=== PATIENT | female | born 1975 | race Caucasian/White ===

== ENCOUNTER 2018-02-15 10:28 | Inpatient (IN) | payer OTHER, MEDICAID, SELFPAY ==
[2018-02-07 10:15] VITALS: BMI 25.2
[2018-02-15] VITALS (12 sets, daily range): BP systolic 96–145; BP diastolic 49–95; PULSE 1–98; RESP 13–18; TEMP 35.8–37; O2SAT 96–99; BMI 25.2
--- NOTE | 2018-02-15 | PATH_ITS ---
[facility] Accession Number: [id number] . 01 Material submitted: . END OF OSTOMY AND ANASTOMOSIS RINGS . 02 Diagnosis: End of an Ostomy and Anastomotic Rings: Colon and colocutaneous tissue with no significant diagnostic abnormality. No evidence of dysplasia or malignancy. [facility]/02/20/2018 . 02 Electronically signed: . Minda Chou MD, Pathologist NPI- [id number] . 01 Gross description: . Received in formalin, labeled 1-end of ostomy + anastomosis rings, is a superficial portion of an ostomy (3.0 x 3.0 x 1.7 cm) with a pale bright white rim of skin (up to 0.5 cm thick). The resection margin is received sutured. No nodules, masses, or lesions are identified. Also submitted are two unoriented pieces of colon (piece #1-1.8 x 1.8 x 0.7 cm; piece #2-3.5 x 1.5 x 0.7 cm). The resection margins are inked black. Section code: (A1, A2) ostomy, two perpendicular slices; (A3-A4) colon piece #1, bisected, entirely submitted; (A5-A6) colon piece #2, serially sectioned, entirely submitted. ([id number]) /FRR . 02 Pathologist provided ICD-10: Z43.3 . 02 CPT . 505552 Performed at: 01 [facility] [address] [id number] MD Dilan Rodriguez MD Phone: [phone] Performed at: 02 [facility] [address] [place] [id number] MD Elfego Shirley MD Phone: [phone]
[2018-02-15] MEDS: NEOMYCIN 500 MG TABLET 1000 MG PO (11:15)
[2018-02-15] MEDS: ERYTHROMYCIN BASE 500 MG TABLET PO (11:15)
[2018-02-15] MEDS: LACTATED RINGERS 1,000 ML 100 ML IV ×2 (11:45→17:34)
[2018-02-15] MEDS: metroNIDAZOLE 500 MG/100 ML PIGGYBACK 100 MG IV ×2 (11:45→18:59)
[2018-02-15] MEDS: ONDANSETRON 4 MG/2 ML INJ IV ×2 (11:49→16:37)
--- NOTE | 2018-02-15 12:11 | PM.PREOP ---
Pre-operative Note Interval Note Pre-op Check: History & Physical Reviewed by Physician and Exam Performed H&P completed within 30 days and has changed as indicated here:: none
[2018-02-15] MEDS: MIDAZOLAM 2 MG/2 ML VIAL IV (12:18)
[2018-02-15] MEDS: CEFOTETAN 2 GM/50 ML PIGGYBACK IV ×2 (12:25→19:56)
[2018-02-15] MEDS: LACTATED RINGERS 1,000 ML 42 ML IV ×2 (13:57→14:54)
[2018-02-15] MEDS: SODIUM CHLORIDE 0.9% IV (16:38)
[2018-02-15] MEDS: FENTANYL IV (16:38)
[2018-02-15] MEDS: BUPIVACAINE 0.5% IV (16:38)
[2018-02-15] MEDS: PROMETHAZINE 12.5 MG in SODIUM CHLORIDE 0.9% 50 ML 202 ML IV (16:49)
--- NOTE | 2018-02-15 16:57 | P.OP_ITS ---
Operative Date/Time/Diagnoses - Date of procedure: 02/15/18 Time of procedure: 16:15 Pre-op diagnosis: Colostomy post anastomotic perforation Post-op diagnosis: same Procedure & Clinicians Procedure: Exploration of the abdomen with colostomy closure resection of a portion of colon and primary colo colo anastomosis Same procedure as scheduled: Yes Indications: Patient with temporary ostomy for closure Surgeon: Kenneth Muniz Hat Finishing Materials Preparer: Sakshi Berger Anesthesia Type: General Operative Notes Findings: Anastomotic area tested no evidence of leak. Closure Type: primary Specimen(s): other (Portion of colon) Applied: catheter (Valencia) Estimated Blood Loss (mL): 50 Blood products transfused: none Procedure in detail: The patient is placed supine on the operating table underwent general endotracheal anesthesia. Her ostomy was closed with a running 0 Polysorb suture. She was put in low lithotomy a Valencia was placed and she was prepped and draped in the usual fashion. Scar from her prior operation was excised and incision carried in the peritoneal cavity. There was a small amount of adhesions of omentum to the anterior abdominal wall. Otherwise the abdomen was fairly free of adhesions. I rapidly was able to identify the distal segment and the 2 Prolene stitches that had been placed that were on the corners. The the end was free that up been was healthy in appearance. An incision was made around the ostomy and the ostomy was from the surrounding skin fat and muscle. It was delivered into the peritoneal cavity. The length was assessed and it was felt it would reach the pelvis easily. The end of the proximal colon segment was cleaned and the distal portion removed and submitted. Sizers were applied and it easily accommodated a 28 Lithuanian Sizer. A 28 EEA anvil was placed in the proximal portion of the colon and a pursestring of 2 0 Prolene placed around it and tied. EEA was inserted through the rectum and the spike extended through the colon wall. It was brought out distal to the in the anterior wall of the colon. The EEA was closed and fired and the donuts appeared to be proctoscope inserted and air insufflated into the colon. A bowel clamp at the placed proximal. The anastomosis was under water and there was no evidence of any leak whatsoever. The proctoscope was removed. The pelvis was irrigated and suctioned free of fluid. The omentum was laid over the intestine and the fascia closed in the midline. Because the patient had an incisional hernia at the umbilicus I chose to close this area with interrupted figure of 8 1. Prolene sutures. Distal to this I closed the fascia with a running 1. Prolene suture and occasional interrupted 0 Polysorb sutures. The subcu was irrigated. Patient had a birthmark that she desired to have removed and it was excised. The wounds were all closed in several layers with 3 0 Polysorb in the subcu for Polysorb subcuticular interrupted sutures as well as running suture line on the long straight segments of the incision. The complicated area where the birthmark cross midline was closed with interrupted 4 0 vertical mattress nylon sutures. Dressings were applied and the patient was awakened extubated taken recovery room good condition. She will go to the ICU for monitoring with an epidural that she will be floor care. Complications: none Condition: stable Disposition: PACU Plan for aftercare: Admitting in patient's status
--- NOTE | 2018-02-15 19:33 | PC.NURSE ---
Addendum entered by Latesha Wade R.N. 02/15/18 22:18: 2215 - Pt reports no change to pain following toradol admininstration. DEPUTY DIRECTOR available. Cleared for 0.6mg. Pt denies nausea and able to take gabapentin without difficulty. Assist to position for comfort. SCD's turned off per pt request. Call light in reach. 2114 -Pt reports no change to pain following bolus to epidural given by Anesthesiologist. Toradol given. Original Note: Addendum entered by Latesha Wade R.N. 02/15/18 19:46: 1945 - Dr. Muniz into see patient. Notified of pain control, epidural infusion rate and DEPUTY DIRECTOR initation. Dr. Muniz request that anesthesia be notified of pain control issue and numbness to BLE, indicating that narcotic use may result in slower recovery r/t gastric motility. Dr. Mccall notified of the above. States that he will be in to assess pt. Original Note: Pt to room from PACU at 1705. Awake and alert, mildly drowsy. Epidural infusing at 10mls/hr. VSS. Numbness to BLE right > left. Pt rates pain 3 of 10. Denies nausea. taking ice chips. 1929 -Pt c/o pain 8 of 10. Discussed pain control options. Pt c/o LE numbness. Discussed titration of epidural and DEPUTY DIRECTOR. Pt requesting that epidural remain at current rate. DEPUTY DIRECTOR initated. DEPUTY DIRECTOR education provided. Dermatome check approximately T6. Pt unable to localize abd pain, states it is difficult to describe. Moves hands in a circular motion over entire abd region. Drsg with scant shadow drainage. BT hypoactive. Call light in reach.
[2018-02-15] MEDS: HYDROMORPHONE PCA 6 MG/30 ML PCA.VIAL IV ×2 (19:40→22:12)
[2018-02-15] MEDS: KETOROLAC 30 MG/ML VIAL IV (21:16)
[2018-02-15] MEDS: GABAPENTIN 600 MG TABLET 300 MG PO (22:11)
[2018-02-16] VITALS (11 sets, daily range): BP systolic 109–137; BP diastolic 53–77; PULSE 58–100; RESP 16–21; TEMP 35.8–37.7; O2SAT 92–100
[2018-02-16] MEDS: metroNIDAZOLE 500 MG/100 ML PIGGYBACK 75 MG IV (00:01)
[2018-02-16] MEDS: LACTATED RINGERS 1,000 ML 125 ML IV (04:56)
[2018-02-16 05:27] LABS: Add Manual Diff / Slide Review NO; Basophils Percent Auto 0.3 % (0-2); Hematocrit 33.4 % (36-46); Hemoglobin 11.5 g/dL (12.0-16.0); Lymphocytes Percent Auto 5.4 % (25-40); Mean Corpuscular HGB Conc 34.3 % (30-36); Mean Corpuscular Hemoglobin 33.1 PG (26-34); Mean Corpuscular Volume 96.3 fL (80-100); Monocytes Percent Auto 3.4 % (3-14); Neutrophils Absolute Auto 15300 /uL (3000-5900); Neutrophils Percent Auto 90.9 % (50-75); Platelet Count 210 X10^3/uL (150-400); Red Blood Cell Count 3.47 X10^6/uL (4.0-5.2); Red Cell Distribution Width 12.5 % (11.6-14.8); White Blood Cell Count 16.9 X10^3/uL (4.5-11.0)
[2018-02-16 05:43] LABS: Alanine Aminotransferase 53 IU/L (9-52); Albumin 3.2 g/dL (3.5-5.0); Albumin Globulin Ratio 1.1 (1.0-2.8); Alkaline Phosphatase 44 U/L (38-126); Aspartate Aminotransferase 39 IU/L (14-36); Bilirubin Total 0.5 mg/dL (0.2-1.3); Calcium 8.4 mg/dL (8.4-10.2); Estimated Glomerular Filt Rate > 60.0 mL/min (>60); Globulin 2.8 g/dL (1.7-4.1); Glucose 164 mg/dL (70-100); HEMOLYSIS < 15 (0-50); Potassium 4.1 mmol/L (3.4-5.1); Sodium 137 mmol/L (137-145)
[2018-02-16] MEDS: metroNIDAZOLE 500 MG/100 ML PIGGYBACK 100 MG IV (06:04)
[2018-02-16] MEDS: KETOROLAC 30 MG/ML VIAL IV ×3 (06:06→21:16)
[2018-02-16] MEDS: HYDROMORPHONE PCA 6 MG/30 ML PCA.VIAL IV (06:14)
[2018-02-16] MEDS: BUPIVACAINE 0.5% EPIDURAL (08:12)
[2018-02-16] MEDS: FENTANYL EPIDURAL (08:12)
[2018-02-16] MEDS: SODIUM CHLORIDE 0.9% EPIDURAL (08:12)
[2018-02-16] MEDS: ONDANSETRON 4 MG/2 ML INJ IV ×2 (08:14→13:59)
[2018-02-16] MEDS: METOPROLOL 50 MG TABLET 100 MG PO ×2 (08:14→21:16)
[2018-02-16] MEDS: LISINOPRIL 20 MG TABLET PO (08:14)
[2018-02-16] MEDS: GABAPENTIN 300 MG CAPSULE PO ×2 (08:58→21:16)
--- NOTE | 2018-02-16 10:06 | PM.PN.1 ---
Subjective Interval history: POD#1 for colostomy takedown, indwelling lumbar epidural for pain management. Pt reports minimal to no pain. 0.6mg dilaudid overnight. Able to move legs, though weak. Tolerating clears, reports +BS, some nausea o/n resolved with zofran. Date Patient Seen: 02/16/18 Time Patient Seen: 10:06 Exam Vital Signs (past 8 hours): Vital Signs - 8 hr 02/16/18 04:04 Temperature 99.0 F Pulse Rate 100 H Respiratory Rate 16 Pulse Oximetry 98 Pulse Oximetry 98 Oxygen Delivery Method Room Air Narrative Exam Narrative: Back/Spine/Pelvis Thoracic/Lumbar Spine: other (catheter intact, no pain, erythema, bandage intact, no TTP. old blood only on bandage. ) Objective Labs Result Diagrams: 02/16/18 04:41 02/16/18 04:41 Labs: Laboratory Results - last 24 hr 02/15/18 02/16/18 02/16/18 17:25 04:41 04:41 WBC 16.9 H RBC 3.47 L Hgb 11.5 L Hct 33.4 L MCV 96.3 MCH 33.1 MCHC 34.3 RDW 12.5 Plt Count 210 Neut % (Auto) 90.9 H Lymph % (Auto) 5.4 L [place] % (Auto) 3.4 Eos % (Auto) 0.0 L Baso % (Auto) 0.3 Neut # (Auto) 11884 H Sodium 137 Potassium 4.1 Chloride 102.0 Carbon Dioxide 25.0 BUN 7.0 Creatinine 0.70 Estimated GFR > 60.0 BUN/Creatinine Ratio 10.0 Glucose 164 H Calcium 8.4 Total Bilirubin 0.5 AST 39 H ALT 53 H Alkaline Phosphatase 44 Total Protein 6.0 L Albumin 3.2 L Globulin 2.8 Albumin/Globulin Ratio 1.1 Nasal Screen MRSA (PCR) Negative for mrsa Assessment & Plan Plan: Plan: POD#1 with good pain control with indwelling epidural catheter. Currently at 12mL/h. 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 Pt satisfied with leg movement and pain control. Plan to decrease rate tomorrow. Quality VTE Deep Vein Thrombosis/Pulmonary Embolism Present on Admission: No
--- NOTE | 2018-02-16 10:13 | P.PN_ITS ---
Subjective Interval history: POD#1 for colostomy takedown, indwelling lumbar epidural for pain management. Pt reports minimal to no pain. 0.6mg dilaudid overnight. Able to move legs, though weak. Tolerating clears, reports +BS, some nausea o/n resolved with zofran. Date Patient Seen: 02/16/18 Time Patient Seen: 10:06 Exam Vital Signs (past 8 hours): Vital Signs - 8 hr 3 02/16/18 04:04 Temperature 99.0 F Pulse Rate 100 H Respiratory Rate 16 Pulse Oximetry 98 Pulse Oximetry 98 Oxygen Delivery Method Room Air Narrative Exam Narrative: Back/Spine/Pelvis Thoracic/Lumbar Spine: other (catheter intact, no pain, erythema, bandage intact , no TTP. old blood only on bandage. ) Objective Labs Result Diagrams: 02/16/18 04:41 02/16/18 04:41 Labs: Laboratory Results - last 24 hr 02/15/18 02/16/18 02/16/18 17:25 04:41 04:41 WBC 16.9 H RBC 3.47 L Hgb 11.5 L Hct 33.4 L MCV 96.3 MCH 33.1 MCHC 34.3 RDW 12.5 Plt Count 210 Neut % (Auto) 90.9 H Lymph % (Auto) 5.4 L [place] % (Auto) 3.4 Eos % (Auto) 0.0 L Baso % (Auto) 0.3 Neut # (Auto) 04190 H Sodium 137 Potassium 4.1 Chloride 102.0 Carbon Dioxide 25.0 BUN 7.0 Creatinine 0.70 Estimated GFR > 60.0 BUN/Creatinine Ratio 10.0 Glucose 164 H Calcium 8.4 Total Bilirubin 0.5 AST 39 H ALT 53 H Alkaline Phosphatase 44 Total Protein 6.0 L Albumin 3.2 L Globulin 2.8 Albumin/Globulin Ratio 1.1 Nasal Screen MRSA (PCR) Negative for mrsa Assessment & Plan Plan: Plan: POD#1 with good pain control with indwelling epidural catheter. Currently at 12mL/h. 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 Pt satisfied with leg movement and pain control. Plan to decrease rate tomorrow. Quality VTE Deep Vein Thrombosis/Pulmonary Embolism Present on Admission: No
[2018-02-16] MEDS: DEXTROSE 5%-0.45% NS 1,000 ML 125 ML IV ×2 (14:28→23:53)
[2018-02-16] MEDS: HYDROMORPHONE PCA 6 MG/30 ML PCA.VIAL 2 MG IV (14:32)
--- NOTE | 2018-02-16 15:01 | CM.DANOTE ---
DCP Assessment: Pt is a 42 yo female, resident of [place]. Pt admitted for a colostomy take down. Pt's PCP is Regi Wilcox; Insurance is [employer]/Medicaid. Met w/pt this morning, explained SW role. Pt lives w/her and two 3 yo twin girls. Pt explains that girls have been going to pre-school half days and they are able to go full days while she is in the hospital and recovering. Pt explains she has been through a few surgeries now and knows how this all goes. She was disappointed in August, when she went home after her first surgery, [facility] was arranged but no one called or showed up. Pt had to do her first dressing change/ostomy care alone, she states it was difficult at the time but she got through it. Pt expects no needs from the CM team upon her DC. She denies the need for HH and confirms she has a strong support network at home to assist prn. P: DC home when medically cleared, likely no needs or barriers to safe DC home although CM team will follow closely. IKER Parmar
--- NOTE | 2018-02-16 17:16 | PM.PNPO.1 ---
Subjective Date Patient Seen: 02/16/18 Time Patient Seen: 12:16 Interval history: The she is feeling pretty comfortable. She says she has even passed some flatus out her but rare end. Exam Vital Signs (past 8 hours): Vital Signs - 8 hr 02/16/18 09:22 02/16/18 12:02 02/16/18 12:18 Temperature 97 F L 99.8 F H 99.8 F H Pulse Rate 67 67 70 Respiratory Rate Blood Pressure 116/71 122/74 H Pulse Oximetry 96 97 02/16/18 14:32 02/16/18 15:29 02/16/18 16:00 Temperature 98.9 F 98.9 F 97.8 F Pulse Rate 63 Respiratory Rate 19 Blood Pressure 126/69 H Pulse Oximetry Pulse Oximetry 97 Oxygen Delivery Method Room Air Narrative Exam Narrative: On examination her lungs are clear with fair effort. Heart regular rate rhythm without murmur or gallop. Abdomen dressings are intact. No obvious cellulitis. Objective Labs Result Diagrams: 02/16/18 04:41 02/16/18 04:41 Labs: Laboratory Results - last 24 hr 02/15/18 02/16/18 02/16/18 17:25 04:41 04:41 WBC 16.9 H RBC 3.47 L Hgb 11.5 L Hct 33.4 L MCV 96.3 MCH 33.1 MCHC 34.3 RDW 12.5 Plt Count 210 Neut % (Auto) 90.9 H Lymph % (Auto) 5.4 L [place] % (Auto) 3.4 Eos % (Auto) 0.0 L Baso % (Auto) 0.3 Neut # (Auto) 42621 H Sodium 137 Potassium 4.1 Chloride 102.0 Carbon Dioxide 25.0 BUN 7.0 Creatinine 0.70 Estimated GFR > 60.0 BUN/Creatinine Ratio 10.0 Glucose 164 H Calcium 8.4 Total Bilirubin 0.5 AST 39 H ALT 53 H Alkaline Phosphatase 44 Total Protein 6.0 L Albumin 3.2 L Globulin 2.8 Albumin/Globulin Ratio 1.1 Nasal Screen MRSA (PCR) Negative for mrsa Assessment & Plan Post-op Postoperative Procedures Operation Date: 02/15/18 11:30 Actual Procedures Side Surgeon p Colostomy Closure, removal of abdominal birthmark Kenneth Muniz MD Postoperative day: 1 Postoperative status: doing well and other (Has had some bowel function already. Overall progressing as expected. Pain is well controlled with the epidural. Trying to avoid narcotic use. Valencia will remain in due to epidural catheter. Continue DVT prophylaxis.) Time Spent With Patient 25 - 35 minutes Quality VTE Deep Vein Thrombosis/Pulmonary Embolism Present on Admission: No
--- NOTE | 2018-02-16 17:22 | P.PN_ITS ---
Subjective Date Patient Seen: 02/16/18 Time Patient Seen: 12:16 Interval history: The she is feeling pretty comfortable. She says she has even passed some flatus out her but rare end. Exam Vital Signs (past 8 hours): Vital Signs - 8 hr 3 02/16/18 09:22 02/16/18 12:02 02/16/18 12:18 Temperature 97 F L 99.8 F H 99.8 F H Pulse Rate 67 67 70 Respiratory Rate Blood Pressure 116/71 122/74 H Pulse Oximetry 96 97 3 02/16/18 14:32 02/16/18 15:29 02/16/18 16:00 Temperature 98.9 F 98.9 F 97.8 F Pulse Rate 63 Respiratory Rate 19 Blood Pressure 126/69 H Pulse Oximetry Pulse Oximetry 97 Oxygen Delivery Method Room Air Narrative Exam Narrative: On examination her lungs are clear with fair effort. Heart regular rate rhythm without murmur or gallop. Abdomen dressings are intact. No obvious cellulitis. Objective Labs Result Diagrams: 02/16/18 04:41 02/16/18 04:41 Labs: Laboratory Results - last 24 hr 02/15/18 02/16/18 02/16/18 17:25 04:41 04:41 WBC 16.9 H RBC 3.47 L Hgb 11.5 L Hct 33.4 L MCV 96.3 MCH 33.1 MCHC 34.3 RDW 12.5 Plt Count 210 Neut % (Auto) 90.9 H Lymph % (Auto) 5.4 L [place] % (Auto) 3.4 Eos % (Auto) 0.0 L Baso % (Auto) 0.3 Neut # (Auto) 19766 H Sodium 137 Potassium 4.1 Chloride 102.0 Carbon Dioxide 25.0 BUN 7.0 Creatinine 0.70 Estimated GFR > 60.0 BUN/Creatinine Ratio 10.0 Glucose 164 H Calcium 8.4 Total Bilirubin 0.5 AST 39 H ALT 53 H Alkaline Phosphatase 44 Total Protein 6.0 L Albumin 3.2 L Globulin 2.8 Albumin/Globulin Ratio 1.1 Nasal Screen MRSA (PCR) Negative for mrsa Assessment & Plan Post-op Postoperative Procedures Operation Date: 02/15/18 11:30 Actual Procedures Side Surgeon p Colostomy Closure, removal of abdominal birthmark Kenneth Muniz MD Postoperative day: 1 Postoperative status: doing well and other (Has had some bowel function already. Overall progressing as expected. Pain is well controlled with the epidural. Trying to avoid narcotic use. Valencia will remain in due to epidural catheter. Continue DVT prophylaxis.) Time Spent With Patient 25 - 35 minutes Quality VTE Deep Vein Thrombosis/Pulmonary Embolism Present on Admission: No
--- NOTE | 2018-02-16 18:02 | PC.NURSE ---
1800- PT states she is not getting as good of pain control from the epidural as she was before. The left abdomen is not numb anylonger. Dr. Acuna notified and he will be in to evaluate the site.
[2018-02-16] MEDS: HYDROMORPHONE 0.5 MG INJ IV (18:30)
--- NOTE | 2018-02-16 18:32 | PM.PN.1 ---
Subjective Date Patient Seen: 02/16/18 Time Patient Seen: 18:32 Interval history: Called to evaluate increasing pain, return of sensation to abdomen and LE. Exam Vital Signs (past 8 hours): Vital Signs - 8 hr 02/16/18 12:02 02/16/18 12:18 02/16/18 14:32 Temperature 99.8 F H 99.8 F H 98.9 F Pulse Rate 67 70 Respiratory Rate Blood Pressure 122/74 H Pulse Oximetry 97 02/16/18 15:29 02/16/18 16:00 Temperature 98.9 F 97.8 F Pulse Rate 63 Respiratory Rate 19 Blood Pressure 126/69 H Pulse Oximetry 98 Pulse Oximetry 98 Oxygen Delivery Method Room Air Narrative Exam Narrative: Pt seated on edge of bed, no acute distress. Block receded to approx L1-2, no longer covering surgical site. Pt able to stand with sensation returned to BLE as well. Test dose of 5mL 1% MPF lidocaine administered with no change in sensation over approx 20 minutes, and liquid seen flowing down back at time of bolus. Epidural site noted to be wet, with the securing sponge dislodged. Dressing removed, catheter at 5cm at skin. Catheter was pulled. Objective Labs Result Diagrams: 02/16/18 04:41 02/16/18 04:41 Labs: Laboratory Results - last 24 hr 02/15/18 02/16/18 02/16/18 17:25 04:41 04:41 WBC 16.9 H RBC 3.47 L Hgb 11.5 L Hct 33.4 L MCV 96.3 MCH 33.1 MCHC 34.3 RDW 12.5 Plt Count 210 Neut % (Auto) 90.9 H Lymph % (Auto) 5.4 L [place] % (Auto) 3.4 Eos % (Auto) 0.0 L Baso % (Auto) 0.3 Neut # (Auto) 96125 H Sodium 137 Potassium 4.1 Chloride 102.0 Carbon Dioxide 25.0 BUN 7.0 Creatinine 0.70 Estimated GFR > 60.0 BUN/Creatinine Ratio 10.0 Glucose 164 H Calcium 8.4 Total Bilirubin 0.5 AST 39 H ALT 53 H Alkaline Phosphatase 44 Total Protein 6.0 L Albumin 3.2 L Globulin 2.8 Albumin/Globulin Ratio 1.1 Nasal Screen MRSA (PCR) Negative for mrsa Assessment & Plan Plan: Plan: Dislodged epidural catheter. Catheter pulled. Site cleaned. No erythema, TTP. 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 Pt desired continue with BAG BLEACHER, will consider replacing epidural if pain not adequately controlled. Surgeon aware. Quality VTE Deep Vein Thrombosis/Pulmonary Embolism Present on Admission: No
--- NOTE | 2018-02-16 18:40 | P.PN_ITS ---
Subjective Date Patient Seen: 02/16/18 Time Patient Seen: 18:32 Interval history: Called to evaluate increasing pain, return of sensation to abdomen and LE. Exam Vital Signs (past 8 hours): Vital Signs - 8 hr 3 02/16/18 12:02 02/16/18 12:18 02/16/18 14:32 Temperature 99.8 F H 99.8 F H 98.9 F Pulse Rate 67 70 Respiratory Rate Blood Pressure 122/74 H Pulse Oximetry 97 3 02/16/18 15:29 02/16/18 16:00 Temperature 98.9 F 97.8 F Pulse Rate 63 Respiratory Rate 19 Blood Pressure 126/69 H Pulse Oximetry 98 Pulse Oximetry 98 Oxygen Delivery Method Room Air Narrative Exam Narrative: Pt seated on edge of bed, no acute distress. Block receded to approx L1-2, no longer covering surgical site. Pt able to stand with sensation returned to BLE as well. Test dose of 5mL 1% MPF lidocaine administered with no change in sensation over approx 20 minutes, and liquid seen flowing down back at time of bolus. Epidural site noted to be wet, with the securing sponge dislodged. Dressing removed, catheter at 5cm at skin. Catheter was pulled. Objective Labs Result Diagrams: 02/16/18 04:41 02/16/18 04:41 Labs: Laboratory Results - last 24 hr 02/15/18 02/16/18 02/16/18 17:25 04:41 04:41 WBC 16.9 H RBC 3.47 L Hgb 11.5 L Hct 33.4 L MCV 96.3 MCH 33.1 MCHC 34.3 RDW 12.5 Plt Count 210 Neut % (Auto) 90.9 H Lymph % (Auto) 5.4 L [place] % (Auto) 3.4 Eos % (Auto) 0.0 L Baso % (Auto) 0.3 Neut # (Auto) 28549 H Sodium 137 Potassium 4.1 Chloride 102.0 Carbon Dioxide 25.0 BUN 7.0 Creatinine 0.70 Estimated GFR > 60.0 BUN/Creatinine Ratio 10.0 Glucose 164 H Calcium 8.4 Total Bilirubin 0.5 AST 39 H ALT 53 H Alkaline Phosphatase 44 Total Protein 6.0 L Albumin 3.2 L Globulin 2.8 Albumin/Globulin Ratio 1.1 Nasal Screen MRSA (PCR) Negative for mrsa Assessment & Plan Plan: Plan: Dislodged epidural catheter. Catheter pulled. Site cleaned. No erythema, TTP. 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 Surgeon aware. Quality VTE Deep Vein Thrombosis/Pulmonary Embolism Present on Admission: No
[2018-02-16] MEDS: FLUCONAZOLE 200 MG/100 ML PIGGYBACK 100 MG IV (19:24)
[2018-02-16] MEDS: PROMETHAZINE 12.5 MG in SODIUM CHLORIDE 0.9% 50 ML 202 ML IV (19:26)
[2018-02-16] MEDS: LORazepam 1 MG TABLET PO (22:06)
[2018-02-16] MEDS: HYDROMORPHONE PCA 6 MG/30 ML PCA.VIAL 5.3 MG IV (22:27)
--- NOTE | 2018-02-17 | DI.RAD.S_ITS ---
PROCEDURE: XR ACUTE ABDOMEN SERIES INDICATIONS: pt post ostomy closure. New distention. TECHNIQUE: One view chest and two views of the abdomen were acquired. COMPARISON: [facility], CT, ABDOMEN/PELVIS WITH CONTRAST, 09/15/2017, 19:01. FINDINGS: Surgical changes and devices: None. Chest: Lungs are clear. Heart size is normal. No pleural effusions. No pneumoperitoneum. Abdomen: Bowel gas pattern demonstrates a paucity of gas in the small bowel. There is gaseous distention of the descending and transverse colon, measuring up to 5.4 cm in diameter. No bowel gas demonstrated in the region of the rectosigmoid colon. No suspicious calcifications. Bones: No suspicious bony lesions. IMPRESSION: 1. Gaseous distention of the proximal colon is nonspecific but may reflect a distal colonic obstruction. Dictated by: Dilan Lyons M.D. on 02/17/2018 at 16:00 Approved by: Dilan Lyons M.D. on 02/17/2018 at 16:07
[2018-02-17] MEDS: HYDROMORPHONE PCA 6 MG/30 ML PCA.VIAL IV ×3 (00:15→22:04)
[2018-02-17] MEDS: KETOROLAC 30 MG/ML VIAL IV ×3 (05:36→22:43)
--- NOTE | 2018-02-17 05:59 | PC.NURSE ---
NOC Shift: Pt POD #3 Colostomy takedown. Epidural removed yesterday per anesthesia due to displacement. At beginning of shift pt conversive, pleasant, stated pain around 4 to 5. After assessment completed, asked RN for a dose of Toradol, pt reminded that the medication was a scheduled medication not for prn usage. Pt immediately began to cry and grasp abdomen stating that her pain is being mismanaged. Encouraged pt to use HOSPICE CONSULTANT, given warm compress for abdomen. Pt fell asleep within 30 minutes sleeping throughout shift. 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 This AM pt awoke crying, angry wanting Toradol given early which it was and again states that RN is mismanaging pain issues. Encouraged pt to discuss pain control w/ MD in AM. HOSPICE CONSULTANT cleared for 3.3mg at shift change.
[2018-02-17 06:55] LABS: Add Manual Diff / Slide Review NO; Basophils Percent Auto 0.9 % (0-2); Hematocrit 30.3 % (36-46); Hemoglobin 10.3 g/dL (12.0-16.0); Lymphocytes Percent Auto 20.2 % (25-40); Mean Corpuscular Hemoglobin 33.3 PG (26-34); Mean Corpuscular Volume 97.9 fL (80-100); Monocytes Percent Auto 7.1 % (3-14); Neutrophils Absolute Auto 6900 /uL (3000-5900); Neutrophils Percent Auto 70.8 % (50-75); Platelet Count 173 X10^3/uL (150-400); Red Blood Cell Count 3.09 X10^6/uL (4.0-5.2); Red Cell Distribution Width 12.8 % (11.6-14.8); White Blood Cell Count 9.7 X10^3/uL (4.5-11.0)
[2018-02-17 07:03] LABS: Estimated Glomerular Filt Rate > 60.0 mL/min (>60); Glucose 142 mg/dL (70-100); HEMOLYSIS 19 (0-50); Potassium 3.5 mmol/L (3.4-5.1); Sodium 139 mmol/L (137-145)
[2018-02-17] MEDS: ONDANSETRON 4 MG/2 ML INJ IV (07:25)
[2018-02-17 07:27] VITALS: BP 130/77; PULSE 77; RESP 18; TEMP 36.9
[2018-02-17] MEDS: OXYCODONE IR 5 MG TABLET 10 MG PO ×4 (09:14→18:54)
[2018-02-17] MEDS: GABAPENTIN 300 MG CAPSULE PO ×2 (09:14→22:43)
[2018-02-17] MEDS: CLOTRIMAZOLE 1 APPLIC TOP ×2 (09:15→22:42)
[2018-02-17] MEDS: METOPROLOL 50 MG TABLET 100 MG PO ×2 (09:15→22:43)
[2018-02-17] MEDS: LISINOPRIL 20 MG TABLET PO (09:15)
[2018-02-17] MEDS: DEXTROSE 5%-0.45% NS 1,000 ML 60 ML IV (09:16)
--- NOTE | 2018-02-17 09:31 | CM.DPNOTE ---
DCP Cont: Per RN, pt showered this morning and ambulating independent in her room with garcia out, had bowel movement, and switching to oral medications with no identified needs. Pt likely stable for d/c home tomorrow. Plan: SW to continue to follow for likely pt d/c home when medically stable, possibly tomorrow, with family support. IKER Diaz
[2018-02-17] MEDS: HYDROMORPHONE PCA 6 MG/30 ML PCA.VIAL 7.6 MG IV (14:17)
--- NOTE | 2018-02-17 15:08 | PM.PNPO.1 ---
Exam Vital Signs (past 8 hours): Vital Signs - 8 hr 02/17/18 07:27 Temperature 98.4 F Pulse Rate 77 Respiratory Rate 18 Blood Pressure 130/77 H Pulse Oximetry 92 Oxygen Delivery Method Room Air Narrative Exam Narrative: Operative in no apparent distress. She has had 2 bowel movements and is passing flatus. Her lungs clear to auscultation. Heart regular rate and rhythm without murmur gallop. Abdomen is soft. It is distended however. Wounds are intact. Ostomy site looks fine. No cellulitis. Objective Labs Result Diagrams: 02/17/18 05:15 02/17/18 05:15 Labs: Laboratory Results - last 24 hr 02/17/18 02/17/18 05:15 05:15 WBC 9.7 RBC 3.09 L Hgb 10.3 L Hct 30.3 L MCV 97.9 MCH 33.3 MCHC 34.0 RDW 12.8 Plt Count 173 Neut % (Auto) 70.8 D Lymph % (Auto) 20.2 L [place] % (Auto) 7.1 Eos % (Auto) 1.0 L Baso % (Auto) 0.9 Neut # (Auto) 6900 H Sodium 139 Potassium 3.5 Chloride 105.0 Carbon Dioxide 28.0 BUN 6.0 L Creatinine 0.60 Estimated GFR > 60.0 BUN/Creatinine Ratio 10.0 Glucose 142 H Calcium 8.0 L Assessment & Plan Post-op Postoperative Procedures Operation Date: 02/15/18 11:30 Actual Procedures Side Surgeon p Colostomy Closure, removal of abdominal birthmark Kenneth Muniz MD Postoperative day: 2 Postoperative status: doing well Postoperative plan: routine post-op care, ambulate and other (A bit distended. I want to check x-rays before I continue her diet. She is having a fair amount of pain so I will give her as needed Dilaudid IV) Time Spent With Patient less than 15 minutes Quality VTE Deep Vein Thrombosis/Pulmonary Embolism Present on Admission: No
[2018-02-17] MEDS: HYDROMORPHONE 2 MG INJ IV ×2 (15:39→19:40)
[2018-02-17 16:08] VITALS: BP 120/67; PULSE 79; RESP 20; TEMP 37.2; O2SAT 95
[2018-02-17] MEDS: PROMETHAZINE 12.5 MG in SODIUM CHLORIDE 0.9% 50 ML 202 ML IV (18:25)
[2018-02-17 22:40] VITALS: BP 147/86
[2018-02-17 23:47] VITALS: BP 138/91; PULSE 84; RESP 16; TEMP 37.2; O2SAT 95
--- NOTE | 2018-02-18 00:06 | PC.NURSE ---
Pt reports that 10 mg oxycodone not adequately treating her pain. Medicated with prn Dilaudid with good relief. Pt up to bathroom, ambulated in halls within 5 minutes of receiving Dilaudid. Later, pt tearful and saying her pain was terrible and not controlled. Called Dr. Muniz to report this and new orders received to start INSTRUMENT ADJUSTER dilaudid.
[2018-02-18] MEDS: LORazepam 1 MG TABLET PO (00:07)
--- NOTE | 2018-02-18 00:26 | PC.NURSE ---
Addendum entered by Suki Cody R.N. 02/18/18 06:10: Patient checked on throughout night by RN and PHOTOENGRAVING SKETCH MAKER, sleeping and snoring, see documentations. Woke this am to use BR, voiding, no BM. Tearful, c/o abdominal pain, says Nobody is listening to me about what controls the pain Why can't I have the Percocet with the Dilaudid every three hours? Encouraged TOOL DESIGN CHECKER use, cleared 3.9mg for nightclub manager, administered scheduled IV Toradol, encouraged repositioning for comfort, refused, offered warm blanket for abdomen, refused. Encouraged her to speak her concerns to surgeon. Original Note: 1mg PO Ativan given per patient request for sleep and anxiety r/t abdominal pain. Continues to use TOOL DESIGN CHECKER. Tolerating clear liquids without N/V.
[2018-02-18] MEDS: DEXTROSE 5%-0.45% NS 1,000 ML 60 ML IV (03:45)
[2018-02-18] MEDS: KETOROLAC 30 MG/ML VIAL IV ×3 (05:47→22:45)
[2018-02-18] MEDS: HYDROMORPHONE PCA 6 MG/30 ML PCA.VIAL IV (06:03)
[2018-02-18 07:20] VITALS: PULSE 88; RESP 20; TEMP 36.9; O2SAT 90
[2018-02-18 08:17] VITALS: BP 142/91
[2018-02-18] MEDS: OXYCODONE IR 5 MG TABLET 10 MG PO ×5 (08:17→22:50)
[2018-02-18] MEDS: LISINOPRIL 20 MG TABLET PO (08:19)
[2018-02-18] MEDS: GABAPENTIN 300 MG CAPSULE PO ×2 (08:19→20:34)
[2018-02-18] MEDS: METOPROLOL 50 MG TABLET 100 MG PO ×2 (08:19→20:34)
[2018-02-18] MEDS: HYDROMORPHONE PCA 6 MG/30 ML PCA.VIAL 4 MG IV (10:28)
[2018-02-18] MEDS: HYDROMORPHONE 2 MG INJ IV ×3 (10:29→20:33)
[2018-02-18] MEDS: ONDANSETRON 4 MG/2 ML INJ IV ×3 (10:29→22:45)
--- NOTE | 2018-02-18 11:14 | PM.PNPO.1 ---
Subjective Date Patient Seen: 02/18/18 Time Patient Seen: 11:15 Interval history: Patient had a rough night. A lot of pain. I had restarted her SCREEN TENDER. However this morning she is off the SCREEN TENDER and now getting as needed Dilaudid and seems to be happy. She is also getting oral pain medication. She is passing large amount of flatus. No bowel movement today. She is tolerating full liquid diet. Exam Vital Signs (past 8 hours): Vital Signs - 8 hr 02/18/18 07:20 02/18/18 08:17 Temperature 98.4 F Pulse Rate 88 Respiratory Rate 20 Blood Pressure 142/91 H Pulse Oximetry 90 L Pulse Oximetry 90 Oxygen Delivery Method Room Air Narrative Exam Narrative: Co operative in no apparent distress. Lungs excellent effort. Pulling over 4 L on the incentive spirometer. Lungs are clear. Heart regular rate and rhythm without murmur gallop. Her abdomen is protuberant but soft. Ostomy site is clean. Midline is intact. No cellulitis. Objective Labs Result Diagrams: 02/17/18 05:15 02/17/18 05:15 Assessment & Plan Post-op Postoperative Procedures Operation Date: 02/15/18 11:30 Actual Procedures Side Surgeon p Colostomy Closure, removal of abdominal birthmark Kenneth Muniz MD Postoperative day: 3 Postoperative status: doing well (Bowel function slowly returning. Tolerating p.o..) Postoperative plan: routine post-op care (Hep-Lock IV. Advance diet for tomorrow. Wound was closed at the bedside after injection of local around the stitches.. Dry dressing applied.) Time Spent With Patient 25 - 35 minutes Quality VTE Deep Vein Thrombosis/Pulmonary Embolism Present on Admission: No
--- NOTE | 2018-02-18 11:18 | P.PN_ITS ---
Subjective Date Patient Seen: 02/18/18 Time Patient Seen: 11:15 Interval history: Patient had a rough night. A lot of pain. I had restarted her HOSPITAL RECRUITER. However this morning she is off the HOSPITAL RECRUITER and now getting as needed Dilaudid and seems to be happy. She is also getting oral pain medication. She is passing large amount of flatus. No bowel movement today. She is tolerating full liquid diet. Exam Vital Signs (past 8 hours): Vital Signs - 8 hr 3 02/18/18 07:20 02/18/18 08:17 Temperature 98.4 F Pulse Rate 88 Respiratory Rate 20 Blood Pressure 142/91 H Pulse Oximetry 90 L Pulse Oximetry 90 Oxygen Delivery Method Room Air Narrative Exam Narrative: Co operative in no apparent distress. Lungs excellent effort. Pulling over 4 L on the incentive spirometer. Lungs are clear. Heart regular rate and rhythm without murmur gallop. Her abdomen is protuberant but soft. Ostomy site is clean. Midline is intact. No cellulitis. Objective Labs Result Diagrams: 02/17/18 05:15 02/17/18 05:15 Assessment & Plan Post-op Postoperative Procedures Operation Date: 02/15/18 11:30 Actual Procedures Side Surgeon p Colostomy Closure, removal of abdominal birthmark Kenneth Muniz MD Postoperative day: 3 Postoperative status: doing well (Bowel function slowly returning. Tolerating p.o..) Postoperative plan: routine post-op care (Hep-Lock IV. Advance diet for tomorrow. Wound was closed at the bedside after injection of local around the stitches.. Dry dressing applied.) Time Spent With Patient 25 - 35 minutes Quality VTE Deep Vein Thrombosis/Pulmonary Embolism Present on Admission: No
[2018-02-18 11:31] VITALS: O2SAT 95
[2018-02-18] MEDS: LIDOCAINE 2% 20 ML INJ 8 ML SUBCUT (11:32)
[2018-02-18] MEDS: MIDAZOLAM 5 MG/ML VIAL 4 MG IV (11:39)
--- NOTE | 2018-02-18 13:19 | PC.NURSE ---
pt very upset this am - she reports her pain is out of control and that she had a terrible night- after talking things thru and adjusting her pain rx to satisfy her and be within md orders she is much better- has ambulated x 2 and showered, dr castaneda closed stoma site and abd incisions appear to be healing well- tolerating diet advancement well- hopeful to d/c home in next day or 2
[2018-02-18 15:15] VITALS: BP 143/81; PULSE 81; RESP 16; TEMP 36.9; O2SAT 98
[2018-02-18 23:53] VITALS: BP 135/91; PULSE 84; RESP 18; TEMP 37; O2SAT 97
[2018-02-19] MEDS: HYDROMORPHONE 2 MG INJ IV ×6 (00:46→22:35)
[2018-02-19] MEDS: LORazepam 1 MG TABLET PO (00:53)
[2018-02-19] MEDS: ONDANSETRON 4 MG/2 ML INJ IV ×2 (04:47→10:06)
[2018-02-19 05:43] LABS: Add Manual Diff / Slide Review NO; Basophils Percent Auto 0.3 % (0-2); Eosinophils Percent Auto 4.7 % (2-4); Hematocrit 31.4 % (36-46); Hemoglobin 11.1 g/dL (12.0-16.0); Lymphocytes Percent Auto 18.5 % (25-40); Mean Corpuscular HGB Conc 35.2 % (30-36); Mean Corpuscular Hemoglobin 33.3 PG (26-34); Mean Corpuscular Volume 94.6 fL (80-100); Neutrophils Absolute Auto 5500 /uL (3000-5900); Neutrophils Percent Auto 70.5 % (50-75); Platelet Count 210 X10^3/uL (150-400); Red Blood Cell Count 3.32 X10^6/uL (4.0-5.2); Red Cell Distribution Width 12.3 % (11.6-14.8); White Blood Cell Count 7.8 X10^3/uL (4.5-11.0)
[2018-02-19] MEDS: KETOROLAC 30 MG/ML VIAL IV ×3 (06:06→22:30)
[2018-02-19 06:10] LABS: BUN Creatinine Ratio 3.3 (6-22); Calcium 8.6 mg/dL (8.4-10.2); Estimated Glomerular Filt Rate > 60.0 mL/min (>60); Glucose 144 mg/dL (70-100); HEMOLYSIS < 15 (0-50); Potassium 3.2 mmol/L (3.4-5.1); Sodium 136 mmol/L (137-145)
[2018-02-19 07:00] VITALS: BP 139/90; PULSE 88; RESP 16; TEMP 36.7; O2SAT 97
[2018-02-19] MEDS: OXYCODONE IR 5 MG TABLET 10 MG PO ×4 (08:09→20:09)
[2018-02-19] MEDS: GABAPENTIN 300 MG CAPSULE PO ×2 (08:09→22:30)
[2018-02-19] MEDS: METOPROLOL 50 MG TABLET 100 MG PO ×2 (08:09→22:30)
[2018-02-19] MEDS: LISINOPRIL 20 MG TABLET PO (08:10)
--- NOTE | 2018-02-19 11:03 | PC.NURSE ---
Pt showered and dressing to stoma wound changed. All incisions show good wound approximations with no signs of infection present. Pt continues to have pain in abdomen. Given percolone and when not effective, given dilaudid IV 2mg for breakthrough pain. Zofran also given for nausea. Tolerating general diet reasonably well.
--- NOTE | 2018-02-19 12:28 | P.PN_ITS ---
Subjective Date Patient Seen: 02/19/18 Time Patient Seen: 12:24 Interval history: Aicha reports that her pain is reasonably well controlled. She is quite upset and she says she was told she would be going home tomorrow and she does not feel ready. She reports she can barely make a lap around the hallway. She has also eaten very very little. Only 1 small liquid bowel movement but has continued to pass some flatus. Spoke to her about the situation and has any mucoid phone number to discuss problems that occurred in the intensive care unit. She feels safe today. She very much likes her nurse today and feels like she has been well cared for now. Exam Vital Signs (past 8 hours): Vital Signs - 8 hr 3 02/19/18 07:00 Temperature 98.0 F Pulse Rate 88 Respiratory Rate 16 Blood Pressure 139/90 H Pulse Oximetry 97 Pulse Oximetry 97 Oxygen Delivery Method Room Air Narrative Exam Narrative: Abdomen is soft and wounds are clean dry and intact. There is no erythema at any site. She has active bowel sounds. Ostomy site is very tender but the wound is closed and without erythema. Eyes seems to be helping with pain a good deal. Objective Labs Result Diagrams: 02/19/18 05:25 02/19/18 05:25 Labs: Laboratory Results - last 24 hr 02/19/18 02/19/18 05:25 05:25 WBC 7.8 RBC 3.32 L Hgb 11.1 L Hct 31.4 L MCV 94.6 D MCH 33.3 MCHC 35.2 RDW 12.3 Plt Count 210 Neut % (Auto) 70.5 Lymph % (Auto) 18.5 L [place] % (Auto) 6.0 Eos % (Auto) 4.7 H Baso % (Auto) 0.3 Neut # (Auto) 5500 Sodium 136 L Potassium 3.2 L Chloride 96.0 L Carbon Dioxide 33.0 H BUN 2.0 L Creatinine 0.60 Estimated GFR > 60.0 BUN/Creatinine Ratio 3.3 L Glucose 144 H Calcium 8.6 Assessment & Plan Plan: Plan: Postop day 4 after ostomy reversal with hernia repair x2 and excision of a large abdominal wall birthmark. Aicha is making great progress. She is definitely not ready for discharge as she is tolerating p.o. only minimally and still requiring IV Dilaudid at times for pain control. Labs are reassuring. I will order a binder for her abdomen and see if that improves her pain with walking. Quality VTE Deep Vein Thrombosis/Pulmonary Embolism Present on Admission: No
[2018-02-19 15:15] VITALS: BP 138/94; PULSE 77; RESP 16; TEMP 36.4; O2SAT 98
[2018-02-19] MEDS: OXYCODONE IR 5 MG TABLET PO (16:16)
[2018-02-19] MEDS: PROMETHAZINE 12.5 MG in SODIUM CHLORIDE 0.9% 50 ML 202 ML IV (16:17)
[2018-02-19] MEDS: CLOTRIMAZOLE 1 APPLIC TOP (22:29)
[2018-02-20] MEDS: ONDANSETRON 4 MG/2 ML INJ IV ×2 (00:16→09:09)
[2018-02-20] MEDS: OXYCODONE IR 5 MG TABLET 10 MG PO ×5 (00:17→20:59)
[2018-02-20 00:20] VITALS: BP 143/80; PULSE 86; RESP 16; TEMP 36.7; O2SAT 98
[2018-02-20] MEDS: HYDROMORPHONE 2 MG INJ IV ×2 (03:13→08:20)
[2018-02-20] MEDS: KETOROLAC 30 MG/ML VIAL IV ×2 (06:21→14:23)
[2018-02-20 08:00] VITALS: BP 130/88; PULSE 76; RESP 16; TEMP 36.1; O2SAT 98
--- NOTE | 2018-02-20 08:29 | PM.PNPO.1 ---
Subjective Date Patient Seen: 02/20/18 Time Patient Seen: 08:29 Interval history: Patient is feeling okay. Having some watery bowel movements. Passing flatus. Ice is helping the pain in her wounds. Appetite is is modest at best. She has been trying to keep her intake fairly light. Exam Vital Signs (past 8 hours): Pulse Oximetry 98 Oxygen Delivery Method Room Air Narrative Exam Narrative: Lungs are clear. Abdomen is his scaphoid. All the distention has resolved. Her incisions look good there is no cellulitis. The ostomy site has no cellulitis. Objective Labs Result Diagrams: 02/19/18 05:25 02/19/18 05:25 Assessment & Plan Post-op Postoperative Procedures Operation Date: 02/15/18 11:30 Actual Procedures Side Surgeon p Colostomy Closure, removal of abdominal birthmark Kenneth Muniz MD Postoperative day: 5 Postoperative status: doing well (Tolerating p.o. still having some pain control issues. Will switch her to p.o. Dilaudid from IV today. Discharge planning. Probable discharge tomorrow morning. Patient agreeable) Time Spent With Patient less than 15 minutes Quality VTE Deep Vein Thrombosis/Pulmonary Embolism Present on Admission: No
--- NOTE | 2018-02-20 09:24 | PC.NURSE ---
Addendum entered by Richa Crow R.N. 02/20/18 13:46: Pt given 10mg of po percolone at 1023. Light on around 1200 asking for more pain medication. Explained to pt that it was to earlier for more meds, then gave pt 4mg of dilaudid at 1300. Somewhat helpful but pt states that the toradol given around 1420 has been the most helpful for pain control. Original Note: 0800- Pt is awake and eating her breakfast. Given 2mg of iv Dilaudid for 7/10 pain to lower abdomen. Vertical mid line incision with steri strips, area is cdi with small amount of old ss drainage. Horizontal incision with stitches and open to air. Area is cdi, pt does have a small open blister to r.side of long incision distal from tape. Abdomen is distended, pt able to eat her cream of wheat this morning and is drinking tea. Dilaudid effective for pain control, but shortly after given she complained of nausea. Just given 4mg of iv zofran and pt is resting. Will give her po pain medications after zofran more effective for nausea.
[2018-02-20] MEDS: FENOFIBRATE 145 MG TABLET PO (10:24)
[2018-02-20] MEDS: GABAPENTIN 300 MG CAPSULE PO ×2 (10:25→21:00)
[2018-02-20] MEDS: METOPROLOL 50 MG TABLET 100 MG PO ×2 (10:25→21:00)
[2018-02-20] MEDS: LISINOPRIL 20 MG TABLET PO (10:28)
[2018-02-20] MEDS: HYDROMORPHONE 2 MG TABLET 4 MG PO ×2 (13:15→19:10)
[2018-02-20 16:30] VITALS: BP 132/77; PULSE 70; RESP 16; TEMP 37; O2SAT 99
[2018-02-20] MEDS: POTASSIUM CHLORIDE 20 MEQ/15 ML UDC PO (19:11)
[2018-02-20 19:21] LABS: Clostridium Difficile Tox PCR NEGATIVE for C. diff
[2018-02-20] MEDS: CLOTRIMAZOLE 1 APPLIC TOP (21:00)
[2018-02-21] MEDS: HYDROMORPHONE 2 MG TABLET 4 MG PO ×3 (00:10→11:20)
[2018-02-21 00:50] VITALS: BP 125/91; PULSE 79; RESP 18; TEMP 36.7; O2SAT 98
[2018-02-21] MEDS: OXYCODONE IR 5 MG TABLET 10 MG PO ×2 (02:30→09:29)
[2018-02-21 08:00] VITALS: BP 124/73; PULSE 95; RESP 16; TEMP 36.9; O2SAT 95
[2018-02-21] MEDS: POTASSIUM CHLORIDE 20 MEQ/15 ML UDC PO (09:27)
[2018-02-21] MEDS: GABAPENTIN 300 MG CAPSULE PO (09:28)
[2018-02-21] MEDS: METOPROLOL 50 MG TABLET 100 MG PO (09:28)
[2018-02-21] MEDS: FENOFIBRATE 48 MG TABLET PO (09:28)
[2018-02-21] MEDS: LISINOPRIL 20 MG TABLET PO (09:29)
--- NOTE | 2018-02-21 10:05 | PC.NURSE ---
Assess- Pt slept in until around 0900. into see patient and she will be discharging home today. Awake and tolerating diet well. Denies nausea. Given 2 percolone for breakthrough pain around 0915 and helpful. Pt complained of 6/10 to incision area to lower abdomen. Vertical incision with steri strips and all cdi, open to air. Horizontal incision with sutures and open to air. Colostomy closure to l.mid abdomen open to air and sutures all cdi. Pt vss and took all po medication well. Up independently to use the bathroom. Sitting up in bed now.
--- NOTE | 2018-02-21 12:26 | PM.DS.1 ---
History of Present Illness Chief complaint: [id number] Narrative: Jada Davey is a 42 year old female The patient had diverticulitis treated with resection and primary anastomosis. The primary anastomosis leaked and the patient was readmitted and underwent resection of that portion of his her colon and an end colostomy and Misti's. She is brought in now many months after the procedure for colostomy closure. She underwent a colonoscopy recently in order to be certain there were no strictures or other abnormalities of her colon prior to closure. Discharge Providers Date of admission: 02/15/18 10:28 Primary care physician: Regi Calloway MD Consults: 02/20/18 08:24 Consult to Discharge Planning Routine Comment: discharge in tomorrow.Not sure she has needs Discharge provider: Kenneth Muniz MD Summary Discharge Diagnosis: History of diverticulitis with anastomotic perforation and colostomy formation. Hypertension essential chronic Acute blood loss anemia secondary to operation Hypokalemia acute treated with oral replacement hypertriglyceridemia chronic hypercholesterolemia chronic Hospital Course: The patient underwent outpatient bowel prep. She was admitted and underwent a very uneventful colostomy reversal. Her postoperative course was marked by placement of an epidural catheter which came out prematurely most likely due to patient movement. She was treated with IV and p.o. pain medication. She had early return of bowel function. Her diet was gradually advanced. She was having passage of flatus and bowel movements at discharge. She had loose stools but was c diff negative on testing. She was discharged on oral dilaudid because other meds did not work as well. She is to follow up in my office this Monday for suture removal. She was begun on Tricor as per instruction of her family doctor for her elevated triglycerides. She is to f/u with Dr. Calloway in 2 weeks. Status at Discharge Functional status at discharge: independent ambulation Overall status at discharge: patient is progressing back to baseline Time Spent with Patient Less than 30 minutes Exam Vital Signs (past 8 hours): Vital Signs - 8 hr 02/21/18 08:00 Temperature 98.5 F Pulse Rate 95 H Respiratory Rate 16 Blood Pressure 124/73 H Pulse Oximetry 95 Pulse Oximetry 95 Oxygen Delivery Method Room Air Objective Labs Result Diagrams: 02/19/18 05:25 02/19/18 05:25 Labs: Laboratory Results - last 24 hr 02/20/18 17:30 C. difficile Tox (PCR) Negative for c. diff Discharge Plan Discharge Plan Patient Disposition: Home, Self-Care Discharge comment: you had a closure of her colostomy. Should you develop new abdominal pain, fever chills or night sweats please call. If you need to reach doctor curriculum consultant [facility] at [phone] and hold through the entire mass edge. You will ultimately be connected with our page cuffing machine operator. Discharge Med Rec/Prescriptions Prescriptions: New hydromorphone 2 mg tablet See Label Instructions .ROUTE .COMPLEX PRN (Reason: pain incisional) Qty: 40 RF: 0 fenofibrate nanocrystallized 48 mg tablet 48 mg PO DAILY Qty: 30 RF: 0 Continue metoprolol tartrate 100 mg Tablet 100 mg PO BID RF: 0 lisinopril 20 mg Tablet 20 mg PO QAM RF: 0 lorazepam 1 mg Tablet 1 mg PO BEDTIME PRN (Reason: Anxiety) RF: 0 Provider Discharge Instructions Diet: Diet as Tolerated Diet comment: Take 1 tbsp of mineral oil daily to keep her stools soft Activity: Do not lift over 10 lb. Do not strain. You may walk. Do not drive until pain free off medication. You may shower. Avoid tub or pool at this time. Avoid sex. Other treatments: You have an appointment to see me this MondayFebruary 26. Please arrive about 9:40 a.m. for your appointment. Follow up with Dr. calloway per her instructions. Wound Care Report to your healthcare provider any signs of infection, such as:: chills, fever, night sweats, increased pain and unusual drainage Dressing: No dressing necessary at this time Visit Report/Discharge Packet Instructions: Hernia Repair, Hydromorphone, DI for Colostomy or Ileostomy Reversal Visit Report Forms: Stroke Signs & Symptoms Discharge Data Primary Care Provider: Regi Calloway Attending Provider: Kenneth Muniz Admit Date/Time: 02/15/18 10:28 Discharges patient from system. Discharge Date/Time: 02/21/18 11:27 Quality VTE Deep Vein Thrombosis/Pulmonary Embolism Present on Admission: No
--- NOTE | 2018-02-21 12:38 | P.DS_ITS ---
History of Present Illness Chief complaint: [id number] Narrative: Jada Davey is a 42 year old female The patient had diverticulitis treated with resection and primary anastomosis. The primary anastomosis leaked and the patient was readmitted and underwent resection of that portion of his her colon and an end colostomy and Misti's. She is brought in now many months after the procedure for colostomy closure. She underwent a colonoscopy recently in order to be certain there were no strictures or other abnormalities of her colon prior to closure. Discharge Providers Date of admission: 02/15/18 10:28 Primary care physician: Regi Calloway MD Consults: 02/20/18 08:24 Consult to Discharge Planning Routine Comment: discharge in tomorrow.Not sure she has needs Discharge provider: Kenneth Muniz MD Summary Discharge Diagnosis: History of diverticulitis with anastomotic perforation and colostomy formation. Hypertension essential chronic Acute blood loss anemia secondary to operation Hypokalemia acute treated with oral replacement hypertriglyceridemia chronic hypercholesterolemia chronic Hospital Course: The patient underwent outpatient bowel prep. She was admitted and underwent a very uneventful colostomy reversal. Her postoperative course was marked by placement of an epidural catheter which came out prematurely most likely due to patient movement. She was treated with IV and p.o. pain medication. She had early return of bowel function. Her diet was gradually advanced. She was having passage of flatus and bowel movements at discharge. She had loose stools but was c diff negative on testing. She was discharged on oral dilaudid because other meds did not work as well. She is to follow up in my office this Monday for suture removal. She was begun on Tricor as per instruction of her family doctor for her elevated triglycerides. She is to f/u with Dr. Calloway in 2 weeks. Status at Discharge Functional status at discharge: independent ambulation Overall status at discharge: patient is progressing back to baseline Time Spent with Patient Less than 30 minutes Exam Vital Signs (past 8 hours): Vital Signs - 8 hr 3 02/21/18 08:00 Temperature 98.5 F Pulse Rate 95 H Respiratory Rate 16 Blood Pressure 124/73 H Pulse Oximetry 95 Pulse Oximetry 95 Oxygen Delivery Method Room Air Objective Labs Result Diagrams: 02/19/18 05:25 02/19/18 05:25 Labs: Laboratory Results - last 24 hr 02/20/18 17:30 C. difficile Tox (PCR) Negative for c. diff Discharge Plan Discharge Plan Patient Disposition: Home, Self-Care Discharge comment: you had a closure of her colostomy. Should you develop new abdominal pain, fever chills or night sweats please call. If you need to reach doctor mission commander [facility] at [phone] and hold through the entire mass edge. You will ultimately be connected with our page splicing machine operator. Discharge Med Rec/Prescriptions Prescriptions: New hydromorphone 2 mg tablet See Label Instructions .ROUTE .COMPLEX PRN (Reason: pain incisional) Qty: 40 RF: 0 fenofibrate nanocrystallized 48 mg tablet 48 mg PO DAILY Qty: 30 RF: 0 Continue metoprolol tartrate 100 mg Tablet 100 mg PO BID RF: 0 lisinopril 20 mg Tablet 20 mg PO QAM RF: 0 lorazepam 1 mg Tablet 1 mg PO BEDTIME PRN (Reason: Anxiety) RF: 0 Provider Discharge Instructions Diet: Diet as Tolerated Diet comment: Take 1 tbsp of mineral oil daily to keep her stools soft Activity: Do not lift over 10 lb. Do not strain. You may walk. Do not drive until pain free off medication. You may shower. Avoid tub or pool at this time. Avoid sex. Other treatments: You have an appointment to see me this MondayFebruary 26. Please arrive about 9:40 a.m. for your appointment. Follow up with Dr. calloway per her instructions. Wound Care Report to your healthcare provider any signs of infection, such as:: chills, fever, night sweats, increased pain and unusual drainage Dressing: No dressing necessary at this time Visit Report/Discharge Packet Instructions: Hernia Repair, Hydromorphone, DI for Colostomy or Ileostomy Reversal Visit Report Forms: Stroke Signs & Symptoms Discharge Data Primary Care Provider: Regi Calloway Attending Provider: Kenneth Muniz Admit Date/Time: 02/15/18 10:28 Discharges patient from system. Discharge Date/Time: 02/21/18 11:27 Quality VTE Deep Vein Thrombosis/Pulmonary Embolism Present on Admission: No
== END 2018-02-21 11:27 | disposition home or self-care (01) | DRG 221 ==
LOC: AC 10:50 → ICU 12:39 → AC 02-18 14:15
PROVIDERS: Admitting Provider Specialist; Family Provider Family Medicine; PCP Family Medicine; Visit Provider Specialist
PROC: 0DBE0ZZ Excision of Large Intestine, Open Approach (ICD-10-PCS; CPT 44620; principal; 2018-02-15 11:30)
DX: Z43.3 Encounter for attention to colostomy (principal); I10 Essential (primary) hypertension; Q82.5 Congenital non-neoplastic nevus
CPT/HCPCS: 36415; 36592; 44626; 74022; 80048; 80053; 85025; 87493; 87797; 88305; J1170; J1450; J1885; J2250; J2274; J2405; J2550; J2704; J3010

== ENCOUNTER → 2018-08-15 09:48 | Outpatient (CLI) | payer OTHER, MEDICAID, SELFPAY ==
[2018-02-26 09:31] VITALS: BMI 25.2
[2018-08-15 10:18] LABS: Add Manual Diff / Slide Review NO; Basophils Percent Auto 0.9 % (0-2); Eosinophils Percent Auto 4.7 % (2-4); Hematocrit 44.8 % (36-46); Hemoglobin 15.4 g/dL (12.0-16.0); Lymphocytes Percent Auto 25.2 % (25-40); Mean Corpuscular HGB Conc 34.4 % (30-36); Mean Corpuscular Hemoglobin 32.9 PG (26-34); Mean Corpuscular Volume 95.9 fL (80-100); Monocytes Percent Auto 5.2 % (3-14); Neutrophils Absolute Auto 5000 /uL (3000-5900); Platelet Count 291 X10^3/uL (150-400); Red Blood Cell Count 4.67 X10^6/uL (4.0-5.2); Red Cell Distribution Width 11.8 % (11.6-14.8); White Blood Cell Count 7.8 X10^3/uL (4.5-11.0)
[2018-08-15 10:49] LABS: Alanine Aminotransferase 56 IU/L (9-52); Albumin 4.8 g/dL (3.5-5.0); Albumin Globulin Ratio 1.3 (1.0-2.8); Alkaline Phosphatase 77 U/L (38-126); Aspartate Aminotransferase 66 IU/L (14-36); BUN Creatinine Ratio 21.4 (6-22); Bilirubin Total 0.7 mg/dL (0.2-1.3); Blood Urea Nitrogen 15 mg/dL (7-17); Calcium 9.7 mg/dL (8.4-10.2); Carbon Dioxide 31 mmol/L (22-32); Chloride 95 mmol/L (98-107); Cholesterol 291 mg/dL (140-199); Estimated Glomerular Filt Rate > 60.0 mL/min (>60); Globulin 3.7 g/dL (1.7-4.1); Glucose 215 mg/dL (70-100); HDL Cholesterol 35 mg/dL (40-60); Potassium 4.8 mmol/L (3.4-5.1); Sodium 139 mmol/L (137-145); Total Protein 8.5 g/dL (6.3-8.2)
[2018-08-15 10:52] LABS: HEMOLYSIS 55 (0-50)
[2018-08-15 11:46] LABS: Triglycerides 1714 mg/dL (35-150)
[2018-08-20 16:04] LABS: LDL Cholesterol Direct 51 mg/dL (<100)
== END ==
PROVIDERS: PCP Family Medicine; Visit Provider Family Medicine
DX: E78.5 Hyperlipidemia, unspecified (principal); D64.9 Anemia, unspecified
CPT/HCPCS: 36415; 80053; 80061; 83721; 85025

== ENCOUNTER → 2018-08-20 18:09 | Outpatient (CLI) | payer OTHER, MEDICAID, SELFPAY ==
[2018-02-26 09:31] VITALS: BMI 25.2
== END ==
PROVIDERS: Family Provider Family Medicine; PCP Family Medicine; Visit Provider Family Medicine
DX: Z13.9 Encounter for screening, unspecified (principal)

== ENCOUNTER → 2018-08-24 09:19 | Outpatient (CLI) | payer OTHER, MEDICAID, SELFPAY ==
[2018-02-26 09:31] VITALS: BMI 25.2
[2018-08-24 10:40] LABS: Hemoglobin A1C% w Est Avg Glu 7.3 % (4.0-6.0)
== END ==
PROVIDERS: PCP Family Medicine; Visit Provider Family Medicine
DX: R73.9 Hyperglycemia, unspecified (principal)
CPT/HCPCS: 36415; 83036

== ENCOUNTER → 2018-12-10 09:03 | Outpatient (CLI) | payer OTHER, MEDICAID, SELFPAY ==
[2018-02-26 09:31] VITALS: BMI 25.2
[2018-12-10 09:32] LABS: Alanine Aminotransferase 70 IU/L (9-52); Albumin 4.4 g/dL (3.5-5.0); Albumin Globulin Ratio 1.4 (1.0-2.8); Alkaline Phosphatase 70 U/L (38-126); Aspartate Aminotransferase 59 IU/L (14-36); Bilirubin Total 0.4 mg/dL (0.2-1.3); Blood Urea Nitrogen 12 mg/dL (7-17); Calcium 9.2 mg/dL (8.4-10.2); Carbon Dioxide 26 mmol/L (22-32); Chloride 98 mmol/L (98-107); Cholesterol 221 mg/dL (140-199); Estimated Glomerular Filt Rate > 60.0 mL/min (>60); Globulin 3.1 g/dL (1.7-4.1); Glucose 209 mg/dL (70-100); HDL Cholesterol 29 mg/dL (40-60); HEMOLYSIS < 15 (0-50); Potassium 3.9 mmol/L (3.4-5.1); Sodium 136 mmol/L (137-145); Total Protein 7.5 g/dL (6.3-8.2)
--- NOTE | 2018-12-10 09:40 | DI.CT.S_ITS ---
PROCEDURE: CT ABDOMEN PELVIS WO CON INDICATIONS: Rule out incisional hernia right lower abdomen TECHNIQUE: After the administration of oral contrast, 5 mm thick sections acquired from the diaphragms to the symphysis. 5 mm coronal and sagittal reformats were performed. For radiation dose reduction, the following was used: automated exposure control, adjustment of mA and/or kV according to patient size. COMPARISON: [facility], CT, ABDOMEN/PELVIS WITH CONTRAST, 09/15/2017, 19:01. FINDINGS: Image quality: Excellent. ABDOMEN: Lung bases: Lung bases are clear. Heart size is normal. Solid organs: Hepatic steatosis. Gallbladder decompressed otherwise unremarkable. Pancreas is normal in size. Spleen is normal in size. No adrenal nodules. Both kidneys are normal in size, without hydronephrosis or nephrolithiasis. Peritoneum and bowel: Bowel loops demonstrate normal wall thickness and caliber. No free fluid or air. Nodes and vessels: No retroperitoneal or mesenteric adenopathy by size criteria. Aorta and inferior vena cava are normal in size. Miscellaneous: Midline ventral abdominal wall incision scar noted. Fat-containing right paramedian incisional hernia is seen, and the hernia sac measures approximately 2.6 x 6.7 cm. It does not contain any bowel loops. Additional 2.0 cm smaller fat containing right paramedian incisional hernia image 66 series 2. Postsurgical change related to prior colostomy in the anterior left abdominal wall on image 49 series 2 PELVIS: Genitourinary: Bladder wall thickness is normal. Miscellaneous: No inguinal hernias or adenopathy. Bones: No suspicious bony lesions. No vertebral body compression fractures. IMPRESSION: Multiple right paramedian fat containing incisional hernias as above measuring up to 2.6 x 6.7 cm. These appear new since 09/15/17 Hepatic steatosis. Dictated by: Ulysses Olson M.D. on 12/10/2018 at 14:42 Approved by: Ulysses Olson M.D. on 12/10/2018 at 14:48
[2018-12-10 09:41] LABS: Triglycerides 729 mg/dL (35-150)
[2018-12-10 09:57] LABS: Hemoglobin A1C% w Est Avg Glu 7.2 % (4.0-6.0)
[2018-12-10 10:49] LABS: Creatinine Urine Random 178.2 mg/dL
[2018-12-10 10:53] LABS: Microalbumi Creatinin Ratio Ur 3.3 ug/mg CR (<30); Microalbumin Urine Random < 0.6 mg/dL (0-1.6)
== END ==
PROVIDERS: PCP Family Medicine; Visit Provider Specialist
DX: K43.2 Incisional hernia without obstruction or gangrene (principal); K76.0 Fatty (change of) liver, not elsewhere classified; E11.9 Type 2 diabetes mellitus without complications; E78.5 Hyperlipidemia, unspecified
CPT/HCPCS: 36415; 74176; 80053; 80061; 82043; 82570; 83036

== ENCOUNTER → 2018-12-12 12:59 | Outpatient (CLI) | payer OTHER, MEDICAID, SELFPAY ==
[2018-02-26 09:31] VITALS: BMI 25.2
[2018-12-12 17:37] LABS: LDL Cholesterol Direct 85 mg/dL (<100)
== END ==
PROVIDERS: PCP Family Medicine; Visit Provider Family Medicine
DX: E78.5 Hyperlipidemia, unspecified (principal)
CPT/HCPCS: 83721

== ENCOUNTER → 2019-03-20 13:01 | Outpatient (CLI) | payer OTHER, MEDICAID, SELFPAY ==
[2018-02-26 09:31] VITALS: BMI 25.2
[2019-03-20 14:10] LABS: Hemoglobin A1C% w Est Avg Glu 6.3 % (4.0-6.0)
[2019-03-20 14:13] LABS: Alanine Aminotransferase 34 IU/L (9-52); Albumin 4.6 g/dL (3.5-5.0); Albumin Globulin Ratio 1.3 (1.0-2.8); Alkaline Phosphatase 69 U/L (38-126); Aspartate Aminotransferase 71 IU/L (14-36); Bilirubin Total 0.4 mg/dL (0.2-1.3); Blood Urea Nitrogen 12 mg/dL (7-17); Calcium 9.6 mg/dL (8.4-10.2); Carbon Dioxide 26 mmol/L (22-32); Chloride 103 mmol/L (98-107); Estimated Glomerular Filt Rate > 60.0 mL/min (>60); Globulin 3.5 g/dL (1.7-4.1); Glucose 102 mg/dL (70-100); HEMOLYSIS < 15 (0-50); Potassium 4.5 mmol/L (3.4-5.1); Sodium 139 mmol/L (137-145); Total Protein 8.1 g/dL (6.3-8.2)
== END ==
PROVIDERS: PCP Family Medicine; Visit Provider Family Medicine
DX: E11.9 Type 2 diabetes mellitus without complications (principal); R74.0 Nonspecific elevation of levels of transaminase and lactic acid dehydrogenase [LDH]
CPT/HCPCS: 36415; 80053; 83036

== ENCOUNTER 2019-09-24 09:45 | Outpatient (RCR) | payer OTHER, MEDICAID, SELFPAY ==
[2018-02-26 09:31] VITALS: BMI 25.2
--- NOTE | 2019-06-24 12:25 | PT.OIE ---
Current Diagnoses Personal history of other diseases of the digestive system (06/24/19) Other specified postprocedural states (06/24/19) Past Medical History (Last Reviewed 04/02/19 @ 13:38 by Jaquelin Coe DO) Anastomotic leak of intestine (Resolved) Carpal tunnel syndrome on both sides (Acute) Colostomy in place (Resolved) Ectopic (Resolved) HTN (hypertension) (Chronic 2017) Past Surgical History (Last Reviewed 04/02/19 @ 13:38 by Jaquelin Coe DO) History of salpingectomy (Resolved) S/P (Resolved) S/P colostomy takedown (Resolved) Status post colostomy (Resolved) Visit Care Team Role Provider Type Jaquelin Coe DO Primary Care Provider Physician Specialty: Family Practice Address: [address] [place] [address], [facility] Email: [email or web address] Giselle Thao MD Attending Provider Non-Staff Specialty: General Surgery Address: [address] [place] [address], [address], [facility] Email: Physical Therapy Initial Evaluation PT-OP-A Visit Information Start: 06/24/19 11:08 Freq: Status: Active Protocol: Document 06/24/19 11:08 AW (Rec: 06/24/19 12:23 AW [email or web address]) Out-Patient Physical Therapy Visit Information Visit Information Visit Type Initial Evaluation Visit Start Time 08:58 Visit Stop Time 09:47 Total Visit Minutes 49 Visit Number 1 Number of COLOR EXPERT Visits 0 Evaluation Information Evaluation Date 06/24/19 PT-OP-B Current Condition Start: 06/24/19 11:08 Freq: Status: Active Protocol: Document 06/24/19 11:08 AW (Rec: 06/24/19 12:23 AW [email or web address]) Current Condition History of Current Condition Onset Date two years Current Complaints abdominal weakness, low back pain, right posterior hip pain History of Current Condition Jada has had 8 abdominal surgeries over the past five years, including surgery for diverticulitis, ostomy takedown, x 1, and multiple ventral hernia repairs. Her last surgery was performed at [facility] at the end of January 2019. She no longer has any post-op precautions. She complains of RUQ abdominal cramping which occurs in sitting and with increased intra-abdominal pressure such as with sneezing. She also notes lack of midline abdominal sensation. 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 Robaxacet ( acetaminophen + muscle relaxant), rest, and stretching her abdomen decrease her symptoms. Sitting , reaching, lifting, and carrying make them worse. Prior Treatments and Tests No therapy outside of hospital setting Future Testing and Treatments Planned None identified Treatment Goals Patient/Caregiver Goals Pt would like to increase her confidence in engaging her trunk muscles to improve her ability to care for her children, lift, carry, and reach. 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 Current Functional Impairments (Reported) Functional Limitations- ADL's Difficulty carrying laundry up the stairs, lifting heavy pots from the back of the stove, lifting and carrying her children due to trunk weakness. Personal Factors Other Personal Factors That May Effect (-) Multiple abdominal Therapy/Recovery surgeries (+) Good spouse/family support (+) Previously active lifestyle (+) Motivation to return to PLOF. PT-OP-C Subjective Start: 06/24/19 11:08 Freq: Status: Active Protocol: Document 06/24/19 11:08 AW (Rec: 06/24/19 12:23 AW [email or web address]) OP-PT Subjective Patient Comments Patient Comments I want to get stronger and not have to be concerned about everyday things like picking up my children if they are hurt. OP-PT Pain Assessment Pain Assessment Grid Paper Pain Assessment Grid Completed Yes: RUQ abdomen 4/10; midline abdomen 3/10 Home Pain Medication Use Pain Medications Used Yes: robaxacet (acetaminophen + muscle relaxant) Patient Goal Pt would like to reduce overall use PT-OP-J Posture/Palpation/Skin Start: 06/24/19 11:08 Freq: Status: Active Protocol: Document 06/24/19 11:08 AW (Rec: 06/24/19 12:23 AW [email or web address]) Posture Evaluation Comments Posture Comments Pt with costal angle >90 degrees and with mildly increased lumbar lordosis Skin Assessment Incisional Assessment Incision Appearance/Comments Pt has a 9 midline abdominal scar from costal angle to level of ASIS. Scar is well- healed and has good mobility. No adhesions noted. PT-OP-K Range of Motion Start: 06/24/19 11:08 Freq: Status: Active Protocol: Document 06/24/19 11:08 AW (Rec: 06/24/19 12:23 AW [email or web address]) Lumbar Spine Range of Motion Lumbar Spine Active Percentage Testing Position Standing Comments Lumbar spine ROM WNL all planes. Hip Goniometric Range of Motion Hip Active Hip ROM WFL Yes Hip ROM Limitations Comments Bilateral hip ROM WNL with no pain provocation PT-OP-L Special Tests Start: 06/24/19 11:08 Freq: Status: Active Protocol: Document 06/24/19 11:08 AW (Rec: 06/24/19 12:23 AW [email or web address]) Special Tests Lumbar Spine Special Tests Straight Leg Raise Test Results pt reports easier supine SLR with compression through pelvis at ASIS lvl Hip Special Tests Scour Test Test Results negative bilaterally PT-OP-M Strength Start: 06/24/19 11:08 Freq: Status: Active Protocol: Document 06/24/19 11:08 AW (Rec: 06/24/19 12:23 AW [email or web address]) Trunk Strength Trunk Manual Muscle Testing Comments In supine, pt able to lower BLE slowly from fully raised position with good control Hip Strength Hip Manual Muscle Testing Right Flexion (L2) 4+ Good+ Extension (S1) 4- Good- Abduction 4 Good Adduction 4- Good- External Rotation 4+ Good+ Internal Rotation 4+ Good+ Left Flexion (L2) 4+ Good+ Extension (S1) 4- Good- Abduction 4 Good Adduction 4- Good- External Rotation 4+ Good+ Internal Rotation 4+ Good+ PT-OP-Q Treatments Start: 06/24/19 11:08 Freq: Status: Active Protocol: Document 06/24/19 11:08 AW (Rec: 06/24/19 12:23 AW [email or web address]) Therapeutic Exercises Supine Exercises 2 Supine Exercise Name hip adduction with pillow Side bilateral Reps/Minutes 3x15 reps Comments cues for TA engagement during exercise 1 Supine Exercise Name isometric transverse abdominus contraction Reps/Minutes 10 second holds - 5 minutes Comments cues to breathe normally while maintaining contraction Therapeutic Activity Therapeutic Activity 1 Name diaphragmatic breathing Reps/Minutes 3 minutes Comments cues for abdominal and lateral ribcage expansion Self-Care/Home Management Treatment Education Patient Education Home Exercise Program Other Education HEP: - isometric TA activation in supine with regular breathing - supine adduction with pillow or ball PT-OP-T Assessment and Plan Start: 06/24/19 11:08 Freq: Status: Active Protocol: Document 06/24/19 11:08 AW (Rec: 06/24/19 12:23 AW [email or web address]) Physical Therapy Assessment Rehab Potential Rehabilitation Potential Excellent Evaluation Complexity Number of Personal Factors/Comorbidities 1-2 Number of Body Systems Impaired 1-2 Clinical Presentation at Evaluation Stable Impairments Impairments Activity Tolerance,Functional Mobility,Integument,Posture, Sensation,Soft Tissue Mobility ,Strength Goals 3 Impairment Pt has no HEP Short Term Goal (STG) Pt will be independent with HEP for support in therapy services provided in clinic STG Duration 07/22/19 2 Impairment abdominal cramping/pain Short Term Goal (STG) Pt will report use of robaxacet <2 times per week STG Duration 07/22/19 Skilled Nursing Goal (LTG) Pt will report use of robaxacet 1 time per week or less LTG Duration 08/19/19 1 Impairment impaired lifting Short Term Goal (STG) Pt will carry full load of laundry up stairs with good trunk control/stability and without pain STG Duration 07/22/19 Skilled Nursing Goal (LTG) Pt will lift one of her children with good trunk control and without pain LTG Duration 08/19/19 Assessment Summary Assessment Pt is a 43 yo previously- active woman who has undergone 8 abdominal surgeries in the past 5 years, including C- section x 1, surgery for diverticulitis, ostomy takedown, and multiple ventral hernia repairs. She reports good bowel and bladder function. She presents with complaints of RUQ abdominal cramping and general trunk weakness made worse by sitting , reaching, lifting, and carrying. She does not report pelvic pain or stress incontinence, but she does endorse noticeable lack of engagement of her pelvic floor muscles. On exam, she responds positively to pelvic support in active straight leg raise, indicating weakness of deep abdominal musculature. Her lumbar ROM is within normal limits with no pain provocation. Repeated invasive abdominial surgeries are precipitating for abdominal and pelvic floor weakness. Fear of further disrupting her trunk muscles have limited her movement and perpetuated her weakness. 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 Current plan of care to include consultation with specialized pelvic health PT for further assessment and treatment. Physical Therapy Plan Frequency and Duration Frequency of Treatment 1-2x/week Duration of Treatment 8 weeks Plan of Care Start Date 06/24/19 Plan of Care End Date 08/19/19 Therapeutic Interventions Therapeutic Interventions Gait Training,Home Exercise Program,Joint Mobilizations, Manual Therapy,Neuromuscular Re-education,Patient/Caregiver Education,Self-Care/Home Management,Sensory Integration ,Soft Tissue Mobilization, Taping,Therapeutic Activities, Therapeutic Exercises Modalities Biofeedback,Cold Pack/Ice Massage,Hot Packs Next Visit Focus/Plan Next Note Type Treatment Note Next Visit Plan assess hip flexor length, progress supine TA exercises, reinforce diaphragmatic breathing, initiate ther ex for hip strengthening
--- NOTE | 2019-06-24 13:06 | PT.OPPOC ---
Current Diagnoses Personal history of other diseases of the digestive system (06/24/19) Other specified postprocedural states (06/24/19) Visit Care Team Role Provider Type Jaquelin Coe DO Primary Care Provider Physician Specialty: Family Practice Address: [address] [place] [address], [facility] [place], [address] Email: [email or web address] Thao MD Attending Provider Non-Staff Specialty: General Surgery Address: [address] [place] [address], [facility] [address], [place], [address] Email: Plan Of Care PT-OP-T Assessment and Plan Start: 06/24/19 11:08 Freq: Status: Active Protocol: Document 06/24/19 11:08 AW (Rec: 06/24/19 12:23 AW [email or web address]) Physical Therapy Assessment Rehab Potential Rehabilitation Potential Excellent Evaluation Complexity Number of Personal Factors/Comorbidities 1-2 Number of Body Systems Impaired 1-2 Clinical Presentation at Evaluation Stable Impairments Impairments Activity Tolerance,Functional Mobility,Integument,Posture, Sensation,Soft Tissue Mobility ,Strength Goals 3 Impairment Pt has no HEP Short Term Goal (STG) Pt will be independent with HEP for support in therapy services provided in clinic STG Duration 07/22/19 2 Impairment abdominal cramping/pain Short Term Goal (STG) Pt will report use of robaxacet <2 times per week STG Duration 07/22/19 Custodial Goal (LTG) Pt will report use of robaxacet 1 time per week or less LTG Duration 08/19/19 1 Impairment impaired lifting Short Term Goal (STG) Pt will carry full load of laundry up stairs with good trunk control/stability and without pain STG Duration 07/22/19 Custodial Goal (LTG) Pt will lift one of her children with good trunk control and without pain LTG Duration 08/19/19 Assessment Summary Assessment Pt is a 43 yo previously- active woman who has undergone 8 abdominal surgeries in the past 5 years, including C- section x 1, surgery for diverticulitis, ostomy takedown, and multiple ventral hernia repairs. She reports good bowel and bladder function. She presents with complaints of RUQ abdominal cramping and general trunk weakness made worse by sitting , reaching, lifting, and carrying. She does not report pelvic pain or stress incontinence, but she does endorse noticeable lack of engagement of her pelvic floor muscles. On exam, she responds positively to pelvic support in active straight leg raise, indicating weakness of deep abdominal musculature. Her lumbar ROM is within normal limits with no pain provocation. Repeated invasive abdominial surgeries are precipitating for abdominal and pelvic floor weakness. Fear of further disrupting her trunk muscles have limited her movement and perpetuated her weakness. 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 Current plan of care to include consultation with specialized pelvic health PT for further assessment and treatment. Physical Therapy Plan Frequency and Duration Frequency of Treatment 1-2x/week Duration of Treatment 8 weeks Plan of Care Start Date 06/24/19 Plan of Care End Date 08/19/19 Therapeutic Interventions Therapeutic Interventions Gait Training,Home Exercise Program,Joint Mobilizations, Manual Therapy,Neuromuscular Re-education,Patient/Caregiver Education,Self-Care/Home Management,Sensory Integration ,Soft Tissue Mobilization, Taping,Therapeutic Activities, Therapeutic Exercises Modalities Biofeedback,Cold Pack/Ice Massage,Hot Packs Next Visit Focus/Plan Next Note Type Treatment Note Next Visit Plan assess hip flexor length, progress supine TA exercises, reinforce diaphragmatic breathing, initiate ther ex for hip strengthening Plan of Care Dates Plan of Care Start Date 06/24/19 Plan of Care End Date 08/19/19
--- NOTE | 2019-07-05 16:17 | PT.OTN ---
Current Diagnoses Personal history of other diseases of the digestive system (07/05/19) Other specified postprocedural states (07/05/19) Physical Therapy Treatment Note PT-OP-A Visit Information Start: 06/24/19 11:08 Freq: Status: Active Protocol: Document 07/05/19 13:00 HH (Rec: 07/05/19 15:19 HH [id number]) Out-Patient Physical Therapy Visit Information Visit Information Visit Type Treatment Note Visit Note last visit 06/24 Visit Start Time 13:00 Visit Stop Time 13:45 Total Visit Minutes 45 Visit Number 2 Number of BUS AND RAIL OPERATOR Visits 0 PT-OP-B Current Condition Start: 06/24/19 11:08 Freq: Status: Active Protocol: Document 06/24/19 11:08 AW (Rec: 06/24/19 12:23 AW [email or web address]) Current Condition History of Current Condition Onset Date two years Current Complaints abdominal weakness, low back pain, right posterior hip pain History of Current Condition Jada has had 8 abdominal surgeries over the past five years, including surgery for diverticulitis, ostomy takedown, x 1, and multiple ventral hernia repairs. Her last surgery was performed at [facility] in [place] at the end of January 2019. She no longer has any post-op precautions. She complains of RUQ abdominal cramping which occurs in sitting and with increased intra-abdominal pressure such as with sneezing. She also notes lack of midline abdominal sensation. Most significantly, she complains of core weakness which makes it difficult to pick remover her 5- year old twins who weigh ~35 pounds, to carry laundry up the stairs, and to reach forward to pick wet laundry out of the bottom of her top- loading machine. Robaxacet ( acetaminophen + muscle relaxant), rest, and stretching her abdomen decrease her symptoms. Sitting , reaching, lifting, and carrying make them worse. Prior Treatments and Tests No therapy outside of hospital setting Future Testing and Treatments Planned None identified Treatment Goals Patient/Caregiver Goals Pt would like to increase her confidence in engaging her trunk muscles to improve her ability to care for her children, lift, carry, and reach. 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 Current Functional Impairments (Reported) Functional Limitations- ADL's Difficulty carrying laundry up the stairs, lifting heavy pots from the back of the stove, lifting and carrying her children due to trunk weakness. Personal Factors Other Personal Factors That May Effect (-) Multiple abdominal Therapy/Recovery surgeries (+) Good spouse/family support (+) Previously active lifestyle (+) Motivation to return to PLOF. PT-OP-C Subjective Start: 06/24/19 11:08 Freq: Status: Active Protocol: Document 07/05/19 13:00 HH (Rec: 07/05/19 15:19 HH [email or web address]) OP-PT Subjective Patient Comments Patient Comments Vesta been doing my ex and its pretty good but i did feel the cramp for a few minutes afterward. PT-OP-J Posture/Palpation/Skin Start: 06/24/19 11:08 Freq: Status: Active Protocol: Document 06/24/19 11:08 AW (Rec: 06/24/19 12:23 AW [email or web address]) Posture Evaluation Comments Posture Comments Pt with costal angle >90 degrees and with mildly increased lumbar lordosis Skin Assessment Incisional Assessment Incision Appearance/Comments Pt has a 9 midline abdominal scar from costal angle to level of ASIS. Scar is well- healed and has good mobility. No adhesions noted. PT-OP-K Range of Motion Start: 06/24/19 11:08 Freq: Status: Active Protocol: Document 06/24/19 11:08 AW (Rec: 06/24/19 12:23 AW [email or web address]) Lumbar Spine Range of Motion Lumbar Spine Active Percentage Testing Position Standing Comments Lumbar spine ROM WNL all planes. Hip Goniometric Range of Motion Hip Active Hip ROM WFL Yes Hip ROM Limitations Comments Bilateral hip ROM WNL with no pain provocation PT-OP-L Special Tests Start: 06/24/19 11:08 Freq: Status: Active Protocol: Document 06/24/19 11:08 AW (Rec: 06/24/19 12:23 AW [email or web address]) Special Tests Lumbar Spine Special Tests Straight Leg Raise Test Results pt reports easier supine SLR with compression through pelvis at ASIS lvl Hip Special Tests Scour Test Test Results negative bilaterally PT-OP-M Strength Start: 06/24/19 11:08 Freq: Status: Active Protocol: Document 06/24/19 11:08 AW (Rec: 06/24/19 12:23 AW [email or web address]) Trunk Strength Trunk Manual Muscle Testing Comments In supine, pt able to lower BLE slowly from fully raised position with good control Hip Strength Hip Manual Muscle Testing Right Flexion (L2) 4+ Good+ Extension (S1) 4- Good- Abduction 4 Good Adduction 4- Good- External Rotation 4+ Good+ Internal Rotation 4+ Good+ Left Flexion (L2) 4+ Good+ Extension (S1) 4- Good- Abduction 4 Good Adduction 4- Good- External Rotation 4+ Good+ Internal Rotation 4+ Good+ PT-OP-Q Treatments Start: 06/24/19 11:08 Freq: Status: Active Protocol: Document 07/05/19 13:00 HH (Rec: 07/05/19 15:19 [id number]) Cardio Equipment Recumbent Stepper (Sci-Fit) Duration (Minutes) 5 Resistance 4 Therapeutic Exercises Supine Exercises supine marches Side bilateral Reps/Minutes 12 x2 Comments cues on eccentric control lower trunk rotation Side bilateral Reps/Minutes 12 x 2 Comments cues on flat back. 2 Supine Exercise Name hip adduction with ball Side bilateral Reps/Minutes 5 sec hold x10 Comments cues for TA engagement during exercise 1 Supine Exercise Name isometric transverse abdominus contraction Reps/Minutes 10 second holds - 3 minutes Comments cues to breathe normally while maintaining contraction Sitting Exercises english ball Sitting Exercise Name isolated PPT, trunk [place], lateral flexion Side bilateral Reps/Minutes 15 mins Standing Exercises lunge with extension Standing Exercise Name with shoulder flexion Side bilateral Reps/Minutes 10 x2 Comments R hip in extension PT-OP-T Assessment and Plan Start: 06/24/19 11:08 Freq: Status: Active Protocol: Document 07/05/19 13:00 HH (Rec: 07/05/19 16:17 [email or web address]) Physical Therapy Assessment Goals 3 Impairment Pt has no HEP Short Term Goal (STG) Pt will be independent with HEP for support in therapy services provided in clinic STG Duration 07/22/19 2 Impairment abdominal cramping/pain Short Term Goal (STG) Pt will report use of robaxacet <2 times per week STG Duration 07/22/19 Landscape Drafter Goal (LTG) Pt will report use of robaxacet 1 time per week or less LTG Duration 08/19/19 1 Impairment impaired lifting Short Term Goal (STG) Pt will carry full load of laundry up stairs with good trunk control/stability and without pain STG Duration 07/22/19 Halfway Goal (LTG) Pt will lift one of her children with good trunk control and without pain LTG Duration 08/19/19 Assessment Summary Assessment Introduced supine ball squeeze , LTR, supine marches and pelvic AROM on english ball. Pt has poor isolated lumbar movements but she has improved motor control after repetitions. Pt does feel her abdominal muscle engaged. Pt was negative for armani test but did feel stretching discomfort at R abdominal region Physical Therapy Plan Next Visit Focus/Plan Next Note Type Treatment Note Next Visit Plan review HEP progress supine TA exercises, reinforce diaphragmatic breathing, initiate ther ex for hip strengthening
--- NOTE | 2019-07-08 12:21 | PT.OTN ---
Current Diagnoses Personal history of other diseases of the digestive system (07/08/19) Other specified postprocedural states (07/08/19) Physical Therapy Treatment Note PT-OP-A Visit Information Start: 06/24/19 11:08 Freq: Status: Active Protocol: Document 07/08/19 12:01 AW (Rec: 07/08/19 12:21 AW [email or web address]) Out-Patient Physical Therapy Visit Information Visit Information Visit Type Treatment Note Visit Start Time 11:16 Visit Stop Time 11:59 Total Visit Minutes 43 Visit Number 3 Number of VAT SKIMMER Visits 0 PT-OP-B Current Condition Start: 06/24/19 11:08 Freq: Status: Active Protocol: Document 06/24/19 11:08 AW (Rec: 06/24/19 12:23 AW [email or web address]) Current Condition History of Current Condition Onset Date two years Current Complaints abdominal weakness, low back pain, right posterior hip pain History of Current Condition Jada has had 8 abdominal surgeries over the past five years, including surgery for diverticulitis, ostomy takedown, x 1, and multiple ventral hernia repairs. Her last surgery was performed at [facility] in [place] at the end of January 2019. She no longer has any post-op precautions. She complains of RUQ abdominal cramping which occurs in sitting and with increased intra-abdominal pressure such as with sneezing. She also notes lack of midline abdominal sensation. Most significantly, she complains of core weakness which makes it difficult to pick out hand her 5- year old twins who weigh ~35 pounds, to carry laundry up the stairs, and to reach forward to pick wet laundry out of the bottom of her top- loading machine. Robaxacet ( acetaminophen + muscle relaxant), rest, and stretching her abdomen decrease her symptoms. Sitting , reaching, lifting, and carrying make them worse. Prior Treatments and Tests No therapy outside of hospital setting Future Testing and Treatments Planned None identified Treatment Goals Patient/Caregiver Goals Pt would like to increase her confidence in engaging her trunk muscles to improve her ability to care for her children, lift, carry, and reach. 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 Current Functional Impairments (Reported) Functional Limitations- ADL's Difficulty carrying laundry up the stairs, lifting heavy pots from the back of the stove, lifting and carrying her children due to trunk weakness. Personal Factors Other Personal Factors That May Effect (-) Multiple abdominal Therapy/Recovery surgeries (+) Good spouse/family support (+) Previously active lifestyle (+) Motivation to return to PLOF. PT-OP-C Subjective Start: 06/24/19 11:08 Freq: Status: Active Protocol: Document 07/08/19 12:01 AW (Rec: 07/08/19 12:21 AW [email or web address]) OP-PT Subjective Patient Comments Patient Comments I'm still having occasional cramping. Heat pack provides relief. PT-OP-J Posture/Palpation/Skin Start: 06/24/19 11:08 Freq: Status: Active Protocol: Document 06/24/19 11:08 AW (Rec: 06/24/19 12:23 AW [email or web address]) Posture Evaluation Comments Posture Comments Pt with costal angle >90 degrees and with mildly increased lumbar lordosis Skin Assessment Incisional Assessment Incision Appearance/Comments Pt has a 9 midline abdominal scar from costal angle to level of ASIS. Scar is well- healed and has good mobility. No adhesions noted. PT-OP-K Range of Motion Start: 06/24/19 11:08 Freq: Status: Active Protocol: Document 06/24/19 11:08 AW (Rec: 06/24/19 12:23 AW [email or web address]) Lumbar Spine Range of Motion Lumbar Spine Active Percentage Testing Position Standing Comments Lumbar spine ROM WNL all planes. Hip Goniometric Range of Motion Hip Active Hip ROM WFL Yes Hip ROM Limitations Comments Bilateral hip ROM WNL with no pain provocation PT-OP-L Special Tests Start: 06/24/19 11:08 Freq: Status: Active Protocol: Document 06/24/19 11:08 AW (Rec: 06/24/19 12:23 AW [email or web address]) Special Tests Lumbar Spine Special Tests Straight Leg Raise Test Results pt reports easier supine SLR with compression through pelvis at ASIS lvl Hip Special Tests Scour Test Test Results negative bilaterally PT-OP-M Strength Start: 06/24/19 11:08 Freq: Status: Active Protocol: Document 06/24/19 11:08 AW (Rec: 06/24/19 12:23 AW [email or web address]) Trunk Strength Trunk Manual Muscle Testing Comments In supine, pt able to lower BLE slowly from fully raised position with good control Hip Strength Hip Manual Muscle Testing Right Flexion (L2) 4+ Good+ Extension (S1) 4- Good- Abduction 4 Good Adduction 4- Good- External Rotation 4+ Good+ Internal Rotation 4+ Good+ Left Flexion (L2) 4+ Good+ Extension (S1) 4- Good- Abduction 4 Good Adduction 4- Good- External Rotation 4+ Good+ Internal Rotation 4+ Good+ PT-OP-Q Treatments Start: 06/24/19 11:08 Freq: Status: Active Protocol: Document 07/08/19 12:01 AW (Rec: 07/08/19 12:21 AW [email or web address]) Cardio Equipment Recumbent Stepper (Sci-Fit) Duration (Minutes) 5 Resistance 4 Therapeutic Exercises Supine Exercises bridge Supine Exercise Name bridge with adduction Equipment Used green ball Reps/Minutes 2x12 reps heel slides Supine Exercise Name heel slides Side bilateral Reps/Minutes 2x10 reps Comments 1st set with heel on table; 2nd set with heel floating supine marches Supine Exercise Name supine marches Side bilateral Reps/Minutes 12 x2 Comments good control with gait belt under L/S providing feedback lower trunk rotation Supine Exercise Name lower trunk rotation Side bilateral Reps/Minutes 12 x 2 Comments cues on flat back 2 Supine Exercise Name hip adduction with ball Side bilateral Reps/Minutes 5 sec hold - 2x12 reps Comments cues for TA engagement during exercise 1 Supine Exercise Name isometric transverse abdominus contraction Reps/Minutes 10 second holds - 3 minutes Comments improved breathing this session with fewer cues Sitting Exercises montserratian ball Sitting Exercise Name montserratian ball pelvic tilt, pelvic circles Side bilateral Reps/Minutes 4 minutes Comments cues to exaggerate pelvic movement Standing Exercises hip hinge Standing Exercise Name hip hinge/mini squat w/o and with shoulder flexion Side bilateral Reps/Minutes 2x15 reps Comments cues for neutral spine, TA engagement Manual Therapy Treatment Soft Tissue Mobilization 1 Body Location abdomen - LLQ and RUQ Mobilization Type Myofascial Release,Sustained Pressure Intensity/Depth Moderate Body Position Hooklying Comments No adhesions or restrictions noted. Pt may benefit from deep pressure for desensitization. Self-Care/Home Management Treatment Education Patient Education Home Exercise Program Other Education HEP: - isometric TA activation in supine with regular breathing - supine adduction with pillow or ball - montserratian ball pelvic tilt PT-OP-T Assessment and Plan Start: 06/24/19 11:08 Freq: Status: Active Protocol: Document 07/08/19 12:01 AW (Rec: 07/08/19 12:21 AW [email or web address]) Physical Therapy Assessment Goals 3 Impairment Pt has no HEP Short Term Goal (STG) Pt will be independent with HEP for support in therapy services provided in clinic STG Duration 07/22/19 2 Impairment abdominal cramping/pain Short Term Goal (STG) Pt will report use of robaxacet <2 times per week STG Duration 07/22/19 Hvac Commercial Salesperson Goal (LTG) Pt will report use of robaxacet 1 time per week or less LTG Duration 08/19/19 1 Impairment impaired lifting Short Term Goal (STG) Pt will carry full load of laundry up stairs with good trunk control/stability and without pain STG Duration 07/22/19 Hvac Commercial Salesperson Goal (LTG) Pt will lift one of her children with good trunk control and without pain LTG Duration 08/19/19 Assessment Summary Assessment Pt reports reduced use of muscle relaxant without increased pain/cramping. She is tolerating ther ex well, but continues to require frequent cues for normal breathing while engaging deep abdominal muscles. Improvement noted today in hip hinge/ neutral spine mechanics. Physical Therapy Plan Frequency and Duration Frequency of Treatment 1-2x/week Duration of Treatment 8 weeks Plan of Care Start Date 06/24/19 Plan of Care End Date 08/19/19 Therapeutic Interventions Therapeutic Interventions Gait Training,Home Exercise Program,Joint Mobilizations, Manual Therapy,Neuromuscular Re-education,Patient/Caregiver Education,Self-Care/Home Management,Sensory Integration ,Soft Tissue Mobilization, Taping,Therapeutic Activities, Therapeutic Exercises Modalities Biofeedback,Cold Pack/Ice Massage,Hot Packs Next Visit Focus/Plan Next Note Type Treatment Note Next Visit Plan review HEP progress supine TA exercises, reinforce diaphragmatic breathing, progress ther ex for hip strengthening
--- NOTE | 2019-07-10 12:15 | PT.OTN ---
Current Diagnoses Personal history of other diseases of the digestive system (07/10/19) Other specified postprocedural states (07/10/19) Physical Therapy Treatment Note PT-OP-A Visit Information Start: 06/24/19 11:08 Freq: Status: Active Protocol: Document 07/10/19 11:55 AW (Rec: 07/10/19 12:15 AW [email or web address]) Out-Patient Physical Therapy Visit Information Visit Information Visit Type Treatment Note Visit Start Time 11:15 Visit Stop Time 11:53 Total Visit Minutes 38 Visit Number 4 Number of TWILL CUTTER Visits 0 PT-OP-B Current Condition Start: 06/24/19 11:08 Freq: Status: Active Protocol: Document 06/24/19 11:08 AW (Rec: 06/24/19 12:23 AW [email or web address]) Current Condition History of Current Condition Onset Date two years Current Complaints abdominal weakness, low back pain, right posterior hip pain History of Current Condition Jada has had 8 abdominal surgeries over the past five years, including surgery for diverticulitis, ostomy takedown, x 1, and multiple ventral hernia repairs. Her last surgery was performed at [facility] in [place] at the end of January 2019. She no longer has any post-op precautions. She complains of RUQ abdominal cramping which occurs in sitting and with increased intra-abdominal pressure such as with sneezing. She also notes lack of midline abdominal sensation. 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 Robaxacet ( acetaminophen + muscle relaxant), rest, and stretching her abdomen decrease her symptoms. Sitting , reaching, lifting, and carrying make them worse. Prior Treatments and Tests No therapy outside of hospital setting Future Testing and Treatments Planned None identified Treatment Goals Patient/Caregiver Goals Pt would like to increase her confidence in engaging her trunk muscles to improve her ability to care for her children, lift, carry, and reach. 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 Current Functional Impairments (Reported) Functional Limitations- ADL's Difficulty carrying laundry up the stairs, lifting heavy pots from the back of the stove, lifting and carrying her children due to trunk weakness. Personal Factors Other Personal Factors That May Effect (-) Multiple abdominal Therapy/Recovery surgeries (+) Good spouse/family support (+) Previously active lifestyle (+) Motivation to return to PLOF. PT-OP-C Subjective Start: 06/24/19 11:08 Freq: Status: Active Protocol: Document 07/10/19 11:55 AW (Rec: 07/10/19 12:15 AW [email or web address]) OP-PT Subjective Patient Comments Patient Comments Had cramping last night. Combination of CBD oil and essential oils was helpful. I do notice more abdominal engagement in daily activities . Patient Reported Progress Improving PT-OP-J Posture/Palpation/Skin Start: 06/24/19 11:08 Freq: Status: Active Protocol: Document 06/24/19 11:08 AW (Rec: 06/24/19 12:23 AW [email or web address]) Posture Evaluation Comments Posture Comments Pt with costal angle >90 degrees and with mildly increased lumbar lordosis Skin Assessment Incisional Assessment Incision Appearance/Comments Pt has a 9 midline abdominal scar from costal angle to level of ASIS. Scar is well- healed and has good mobility. No adhesions noted. PT-OP-K Range of Motion Start: 06/24/19 11:08 Freq: Status: Active Protocol: Document 06/24/19 11:08 AW (Rec: 06/24/19 12:23 AW [email or web address]) Lumbar Spine Range of Motion Lumbar Spine Active Percentage Testing Position Standing Comments Lumbar spine ROM WNL all planes. Hip Goniometric Range of Motion Hip Active Hip ROM WFL Yes Hip ROM Limitations Comments Bilateral hip ROM WNL with no pain provocation PT-OP-L Special Tests Start: 06/24/19 11:08 Freq: Status: Active Protocol: Document 06/24/19 11:08 AW (Rec: 06/24/19 12:23 AW [email or web address]) Special Tests Lumbar Spine Special Tests Straight Leg Raise Test Results pt reports easier supine SLR with compression through pelvis at ASIS lvl Hip Special Tests Scour Test Test Results negative bilaterally PT-OP-M Strength Start: 06/24/19 11:08 Freq: Status: Active Protocol: Document 06/24/19 11:08 AW (Rec: 06/24/19 12:23 AW [email or web address]) Trunk Strength Trunk Manual Muscle Testing Comments In supine, pt able to lower BLE slowly from fully raised position with good control Hip Strength Hip Manual Muscle Testing Right Flexion (L2) 4+ Good+ Extension (S1) 4- Good- Abduction 4 Good Adduction 4- Good- External Rotation 4+ Good+ Internal Rotation 4+ Good+ Left Flexion (L2) 4+ Good+ Extension (S1) 4- Good- Abduction 4 Good Adduction 4- Good- External Rotation 4+ Good+ Internal Rotation 4+ Good+ PT-OP-Q Treatments Start: 06/24/19 11:08 Freq: Status: Active Protocol: Document 07/10/19 11:55 AW (Rec: 07/10/19 12:15 AW [email or web address]) Cardio Equipment Recumbent Bicycle Duration (Minutes) 5 Resistance 5 Seat Position 4 Therapeutic Exercises Supine Exercises 3 Supine Exercise Name bugs Side bilateral Reps/Minutes 2x12 reps Comments started in 90/90; extend one leg and raise contralat arm overhead bridge Supine Exercise Name single leg bridge Side bilateral Reps/Minutes 2x5 reps each side Comments significantly more difficult than standard bridge; reduced reps heel slides Supine Exercise Name heel slides Side bilateral Reps/Minutes 2x10 reps Comments began with 90/90 position; straightened one leg at a time Sitting Exercises afghan ball shoulder row Sitting Exercise Name afghan ball shoulder row Equipment Used 65 cm ball Reps/Minutes 2x10 reps Comments cues for scapular retraction eccentric abdominal lean back Sitting Exercise Name eccentric abdominal lean back Equipment Used standard height chair Reps/Minutes 2x10 reps seated abdominal press into afghan ball Sitting Exercise Name seated abdominal press into afghan ball Equipment Used 45 cm ball Reps/Minutes 2x10 reps Comments cues to avoid shoulder elevation afghan ball Sitting Exercise Name afghan ball pelvic tilt, pelvic circles Side bilateral Equipment Used 65 cm ball Reps/Minutes 4 minutes Comments cues to exaggerate pelvic movement Self-Care/Home Management Treatment Education Patient Education Home Exercise Program Other Education HEP: - supine L/S rotation - supine adduction with pillow or ball - afghan ball pelvic tilt - afghan ball marching - seated abdominal eccentric lean PT-OP-T Assessment and Plan Start: 06/24/19 11:08 Freq: Status: Active Protocol: Document 07/10/19 11:55 AW (Rec: 07/10/19 12:15 AW [email or web address]) Physical Therapy Assessment Goals 3 Impairment Pt has no HEP Short Term Goal (STG) Pt will be independent with HEP for support in therapy services provided in clinic STG Duration 07/22/19 2 Impairment abdominal cramping/pain Short Term Goal (STG) Pt will report use of robaxacet <2 times per week STG Duration 07/22/19 Residential Goal (LTG) Pt will report use of robaxacet 1 time per week or less LTG Duration 08/19/19 1 Impairment impaired lifting Short Term Goal (STG) Pt will carry full load of laundry up stairs with good trunk control/stability and without pain STG Duration 07/22/19 Needle Valve Operator Goal (LTG) Pt will lift one of her children with good trunk control and without pain LTG Duration 08/19/19 Assessment Summary Assessment Introduced seated abdominal exercises for strengthening of global abd muscles and stability exercise on the ball for core support with dynamic movement under changing load. Pt tolerated all ther ex well . She is beginning to notice abdominal muscle engagement with daily activities, but carrying laundry up stairs is still challenging Physical Therapy Plan Frequency and Duration Frequency of Treatment 1-2x/week Duration of Treatment 8 weeks Plan of Care Start Date 06/24/19 Plan of Care End Date 08/19/19 Therapeutic Interventions Therapeutic Interventions Gait Training,Home Exercise Program,Joint Mobilizations, Manual Therapy,Neuromuscular Re-education,Patient/Caregiver Education,Self-Care/Home Management,Sensory Integration ,Soft Tissue Mobilization, Taping,Therapeutic Activities, Therapeutic Exercises Modalities Biofeedback,Cold Pack/Ice Massage,Hot Packs Next Visit Focus/Plan Next Note Type Treatment Note Next Visit Plan reinforce diaphragmatic breathing, progress ther ex for hip strengthening, progress abdominal strengthening in sitting, standing with movement outside [facility]
--- NOTE | 2019-07-15 12:13 | PT.OTN ---
Current Diagnoses Personal history of other diseases of the digestive system (07/15/19) Other specified postprocedural states (07/15/19) Physical Therapy Treatment Note PT-OP-A Visit Information Start: 06/24/19 11:08 Freq: Status: Active Protocol: Document 07/15/19 11:58 AW (Rec: 07/15/19 12:12 AW [email or web address]) Out-Patient Physical Therapy Visit Information Visit Information Visit Type Treatment Note Visit Start Time 11:17 Visit Stop Time 11:57 Total Visit Minutes 40 Visit Number 5 Number of RIG OPERATOR Visits 0 PT-OP-B Current Condition Start: 06/24/19 11:08 Freq: Status: Active Protocol: Document 06/24/19 11:08 AW (Rec: 06/24/19 12:23 AW [email or web address]) Current Condition History of Current Condition Onset Date two years Current Complaints abdominal weakness, low back pain, right posterior hip pain History of Current Condition Jada has had 8 abdominal surgeries over the past five years, including surgery for diverticulitis, ostomy takedown, x 1, and multiple ventral hernia repairs. Her last surgery was performed at [facility] in [place] at the end of January 2019. She no longer has any post-op precautions. She complains of RUQ abdominal cramping which occurs in sitting and with increased intra-abdominal pressure such as with sneezing. She also notes lack of midline abdominal sensation. 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 Robaxacet ( acetaminophen + muscle relaxant), rest, and stretching her abdomen decrease her symptoms. Sitting , reaching, lifting, and carrying make them worse. Prior Treatments and Tests No therapy outside of hospital setting Future Testing and Treatments Planned None identified Treatment Goals Patient/Caregiver Goals Pt would like to increase her confidence in engaging her trunk muscles to improve her ability to care for her children, lift, carry, and reach. 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 Current Functional Impairments (Reported) Functional Limitations- ADL's Difficulty carrying laundry up the stairs, lifting heavy pots from the back of the stove, lifting and carrying her children due to trunk weakness. Personal Factors Other Personal Factors That May Effect (-) Multiple abdominal Therapy/Recovery surgeries (+) Good spouse/family support (+) Previously active lifestyle (+) Motivation to return to PLOF. PT-OP-C Subjective Start: 06/24/19 11:08 Freq: Status: Active Protocol: Document 07/15/19 11:58 AW (Rec: 07/15/19 12:12 AW [email or web address]) OP-PT Subjective Patient Comments Patient Comments I've been feeling better with less cramping during this last week. PT-OP-J Posture/Palpation/Skin Start: 06/24/19 11:08 Freq: Status: Active Protocol: Document 06/24/19 11:08 AW (Rec: 06/24/19 12:23 AW [email or web address]) Posture Evaluation Comments Posture Comments Pt with costal angle >90 degrees and with mildly increased lumbar lordosis Skin Assessment Incisional Assessment Incision Appearance/Comments Pt has a 9 midline abdominal scar from costal angle to level of ASIS. Scar is well- healed and has good mobility. No adhesions noted. PT-OP-K Range of Motion Start: 06/24/19 11:08 Freq: Status: Active Protocol: Document 06/24/19 11:08 AW (Rec: 06/24/19 12:23 AW [email or web address]) Lumbar Spine Range of Motion Lumbar Spine Active Percentage Testing Position Standing Comments Lumbar spine ROM WNL all planes. Hip Goniometric Range of Motion Hip Active Hip ROM WFL Yes Hip ROM Limitations Comments Bilateral hip ROM WNL with no pain provocation PT-OP-L Special Tests Start: 06/24/19 11:08 Freq: Status: Active Protocol: Document 06/24/19 11:08 AW (Rec: 06/24/19 12:23 AW [email or web address]) Special Tests Lumbar Spine Special Tests Straight Leg Raise Test Results pt reports easier supine SLR with compression through pelvis at ASIS lvl Hip Special Tests Scour Test Test Results negative bilaterally PT-OP-M Strength Start: 06/24/19 11:08 Freq: Status: Active Protocol: Document 06/24/19 11:08 AW (Rec: 06/24/19 12:23 AW [email or web address]) Trunk Strength Trunk Manual Muscle Testing Comments In supine, pt able to lower BLE slowly from fully raised position with good control Hip Strength Hip Manual Muscle Testing Right Flexion (L2) 4+ Good+ Extension (S1) 4- Good- Abduction 4 Good Adduction 4- Good- External Rotation 4+ Good+ Internal Rotation 4+ Good+ Left Flexion (L2) 4+ Good+ Extension (S1) 4- Good- Abduction 4 Good Adduction 4- Good- External Rotation 4+ Good+ Internal Rotation 4+ Good+ PT-OP-Q Treatments Start: 06/24/19 11:08 Freq: Status: Active Protocol: Document 07/15/19 11:58 AW (Rec: 07/15/19 12:12 AW [email or web address]) Cardio Equipment Recumbent Bicycle Duration (Minutes) 5 Resistance 5 Seat Position 4 Therapeutic Exercises Supine Exercises 3 Supine Exercise Name bugs Side bilateral Reps/Minutes 2x12 reps Comments started in 90/90; extend one leg and raise contralat arm overhead bridge Supine Exercise Name single leg bridge Side bilateral Reps/Minutes 2x5 reps each side Comments pt feeling stronger, able to stabilize pelvis with fewer cues lower trunk rotation Supine Exercise Name lower trunk rotation Side bilateral Reps/Minutes 12 x 2 Comments cues on flat back Sitting Exercises danish ball trunk flexion Sitting Exercise Name danish ball trunk flexion pull down Resistance 10# Equipment Used 65 cm ball, weight stack Reps/Minutes 2x10 reps eccentric abdominal lean back Sitting Exercise Name eccentric abdominal lean back Equipment Used standard height chair Reps/Minutes 2x10 reps seated abdominal press into danish ball Sitting Exercise Name seated abdominal press into danish ball Equipment Used 45 cm ball Reps/Minutes 2x10 reps Comments cues to avoid shoulder elevation Standing Exercises lunge with extension Standing Exercise Name lunge with shoulder flexion Side bilateral Reps/Minutes 2x10 reps Comments cues for abdominal engagement Therapeutic Activity Therapeutic Activity 2 Name stair climb with weight Reps/Minutes 4 minutes Comments Up/down 6 4 stairs while holding 5.5# ball. Cues for core engagement throughout. 1 Name standing abdominal wall shortening with box lift Reps/Minutes 6 minutes Comments Crate with weights set on plinth. Pt picked up crate with 7# from 30 height. Cues for elbows tucked to ribs and abdominal engagement. Progressed to crate with 5# weights lifted from 23 height . Cues for hip hinge, glute and abdominal engagement. Self-Care/Home Management Treatment Education Patient Education Home Exercise Program Other Education HEP: - supine L/S rotation - supine adduction with pillow or ball - danish ball pelvic tilt - danish ball marching - seated abdominal eccentric lean PT-OP-T Assessment and Plan Start: 06/24/19 11:08 Freq: Status: Active Protocol: Document 07/15/19 11:58 AW (Rec: 07/15/19 12:12 AW [email or web address]) Physical Therapy Assessment Goals 3 Impairment Pt has no HEP Short Term Goal (STG) Pt will be independent with HEP for support in therapy services provided in clinic STG Duration 07/22/19 2 Impairment abdominal cramping/pain Short Term Goal (STG) Pt will report use of robaxacet <2 times per week STG Duration 07/22/19 Intermediate Goal (LTG) Pt will report use of robaxacet 1 time per week or less LTG Duration 08/19/19 1 Impairment impaired lifting Short Term Goal (STG) Pt will carry full load of laundry up stairs with good trunk control/stability and without pain STG Duration 07/22/19 Intermediate Goal (LTG) Pt will lift one of her children with good trunk control and without pain LTG Duration 08/19/19 Assessment Summary Assessment Pt demonstrates improved abdominal engagement with more normal breathing as evidenced by her ability to carry on a conversation while performing supine exercises. She has tolerated increased challenge with ther ex well without report of pain. She is making good progress toward goals and feels more confident in carrying light loads. Physical Therapy Plan Frequency and Duration Frequency of Treatment 1-2x/week Duration of Treatment 8 weeks Plan of Care Start Date 06/24/19 Plan of Care End Date 08/19/19 Therapeutic Interventions Therapeutic Interventions Gait Training,Home Exercise Program,Joint Mobilizations, Manual Therapy,Neuromuscular Re-education,Patient/Caregiver Education,Self-Care/Home Management,Sensory Integration ,Soft Tissue Mobilization, Taping,Therapeutic Activities, Therapeutic Exercises Modalities Biofeedback,Cold Pack/Ice Massage,Hot Packs Next Visit Focus/Plan Next Note Type Treatment Note Next Visit Plan progress ther ex for hip strengthening, progress abdominal strengthening in sitting, standing with movement outside [facility]
--- NOTE | 2019-07-17 14:32 | PT.OTN ---
Current Diagnoses Personal history of other diseases of the digestive system (07/17/19) Other specified postprocedural states (07/17/19) Physical Therapy Treatment Note PT-OP-A Visit Information Start: 06/24/19 11:08 Freq: Status: Active Protocol: Document 07/17/19 12:48 AW (Rec: 07/17/19 14:32 AW [email or web address]) Out-Patient Physical Therapy Visit Information Visit Information Visit Type Treatment Note Visit Start Time 11:20 Visit Stop Time 12:00 Total Visit Minutes 40 Visit Number 6 Number of STATION MECHANIC Visits 0 PT-OP-B Current Condition Start: 06/24/19 11:08 Freq: Status: Active Protocol: Document 06/24/19 11:08 AW (Rec: 06/24/19 12:23 AW [email or web address]) Current Condition History of Current Condition Onset Date two years Current Complaints abdominal weakness, low back pain, right posterior hip pain History of Current Condition Jada has had 8 abdominal surgeries over the past five years, including surgery for diverticulitis, ostomy takedown, x 1, and multiple ventral hernia repairs. Her last surgery was performed at [facility] in [place] at the end of January 2019. She no longer has any post-op precautions. She complains of RUQ abdominal cramping which occurs in sitting and with increased intra-abdominal pressure such as with sneezing. She also notes lack of midline abdominal sensation. 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 Robaxacet ( acetaminophen + muscle relaxant), rest, and stretching her abdomen decrease her symptoms. Sitting , reaching, lifting, and carrying make them worse. Prior Treatments and Tests No therapy outside of hospital setting Future Testing and Treatments Planned None identified Treatment Goals Patient/Caregiver Goals Pt would like to increase her confidence in engaging her trunk muscles to improve her ability to care for her children, lift, carry, and reach. 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 Current Functional Impairments (Reported) Functional Limitations- ADL's Difficulty carrying laundry up the stairs, lifting heavy pots from the back of the stove, lifting and carrying her children due to trunk weakness. Personal Factors Other Personal Factors That May Effect (-) Multiple abdominal Therapy/Recovery surgeries (+) Good spouse/family support (+) Previously active lifestyle (+) Motivation to return to PLOF. PT-OP-C Subjective Start: 06/24/19 11:08 Freq: Status: Active Protocol: Document 07/17/19 12:48 AW (Rec: 07/17/19 14:32 AW [email or web address]) OP-PT Subjective Patient Comments Patient Comments I had mild low back pain after last session. Feeling stronger overall. PT-OP-J Posture/Palpation/Skin Start: 06/24/19 11:08 Freq: Status: Active Protocol: Document 06/24/19 11:08 AW (Rec: 06/24/19 12:23 AW [email or web address]) Posture Evaluation Comments Posture Comments Pt with costal angle >90 degrees and with mildly increased lumbar lordosis Skin Assessment Incisional Assessment Incision Appearance/Comments Pt has a 9 midline abdominal scar from costal angle to level of ASIS. Scar is well- healed and has good mobility. No adhesions noted. PT-OP-K Range of Motion Start: 06/24/19 11:08 Freq: Status: Active Protocol: Document 06/24/19 11:08 AW (Rec: 06/24/19 12:23 AW [email or web address]) Lumbar Spine Range of Motion Lumbar Spine Active Percentage Testing Position Standing Comments Lumbar spine ROM WNL all planes. Hip Goniometric Range of Motion Hip Active Hip ROM WFL Yes Hip ROM Limitations Comments Bilateral hip ROM WNL with no pain provocation PT-OP-L Special Tests Start: 06/24/19 11:08 Freq: Status: Active Protocol: Document 06/24/19 11:08 AW (Rec: 06/24/19 12:23 AW [email or web address]) Special Tests Lumbar Spine Special Tests Straight Leg Raise Test Results pt reports easier supine SLR with compression through pelvis at ASIS lvl Hip Special Tests Scour Test Test Results negative bilaterally PT-OP-M Strength Start: 06/24/19 11:08 Freq: Status: Active Protocol: Document 06/24/19 11:08 AW (Rec: 06/24/19 12:23 AW [email or web address]) Trunk Strength Trunk Manual Muscle Testing Comments In supine, pt able to lower BLE slowly from fully raised position with good control Hip Strength Hip Manual Muscle Testing Right Flexion (L2) 4+ Good+ Extension (S1) 4- Good- Abduction 4 Good Adduction 4- Good- External Rotation 4+ Good+ Internal Rotation 4+ Good+ Left Flexion (L2) 4+ Good+ Extension (S1) 4- Good- Abduction 4 Good Adduction 4- Good- External Rotation 4+ Good+ Internal Rotation 4+ Good+ PT-OP-Q Treatments Start: 06/24/19 11:08 Freq: Status: Active Protocol: Document 07/17/19 12:48 AW (Rec: 07/17/19 14:32 AW [email or web address]) Cardio Equipment Elliptical Duration (Minutes) 5 Resistance 3 Gym Equipment Sport Cord 1 Exercise Details fwd/bwd Cord/Resistance green Reps/Duration 5 laps Comments Tried red band but was too challenging. Green was more appropriate challenge. Therapeutic Exercises Supine Exercises 5 Supine Exercise Name double leg lift and lower Side bilateral Reps/Minutes 2x10 reps Comments pt lowered to ~45 degrees before noticeable lumbar lordosis 4 Supine Exercise Name bilat knees to chest Side bilateral Reps/Minutes 30 sec hold x 2 lower trunk rotation Supine Exercise Name lower trunk rotation Side bilateral Reps/Minutes 12 x 2 Comments cues on flat back Prone Exercises 1 Prone Exercise Name quadruped single arm flexion Side bilateral Reps/Minutes 2x10 bilat Comments verbal and tactile cues to avoid pelvic rotation Sitting Exercises 1 Sitting Exercise Name diagonal chops with medicine ball Side bilateral Resistance 2.2# Equipment Used medicine ball Reps/Minutes 3x12 reps Comments 2 sets with elbow flexion mid- range; 1 set with elbows extended throughout eccentric abdominal lean back Sitting Exercise Name eccentric abdominal lean back Equipment Used standard height chair Reps/Minutes 1x10 reps Comments used 45 cm ball for support seated abdominal press into guinean ball Sitting Exercise Name seated abdominal press into guinean ball Equipment Used 45 cm ball Reps/Minutes 2x10 reps Comments cues to avoid shoulder elevation Standing Exercises 2 Standing Exercise Name diagonal chops Side bilateral Resistance level 1 Equipment Used T band Reps/Minutes 1x10 reps Comments cues for abdominal engagement 1 Standing Exercise Name anti-rotation Side bilateral Resistance level 1 Equipment Used T band Reps/Minutes 2x10 reps Comments cues for shoulders over hips Self-Care/Home Management Treatment Education Patient Education Home Exercise Program Other Education HEP: - supine L/S rotation - supine adduction with pillow or ball - guinean ball pelvic tilt - guinean ball marching - seated abdominal eccentric lean PT-OP-T Assessment and Plan Start: 06/24/19 11:08 Freq: Status: Active Protocol: Document 07/17/19 12:48 AW (Rec: 07/17/19 14:32 AW [email or web address]) Physical Therapy Assessment Goals 3 Impairment Pt has no HEP Short Term Goal (STG) Pt will be independent with HEP for support in therapy services provided in clinic 07/17/19 MET STG Duration 07/22/19 2 Impairment abdominal cramping/pain Short Term Goal (STG) Pt will report use of robaxacet <2 times per week 07/17/19 MET STG Duration 07/22/19 Custodial Goal (LTG) Pt will report use of robaxacet 1 time per week or less LTG Duration 08/19/19 1 Impairment impaired lifting Short Term Goal (STG) Pt will carry full load of laundry up stairs with good trunk control/stability and without pain 07/17/19 PARTIALLY MET STG Duration 07/22/19 Director Private Goal (LTG) Pt will lift one of her children with good trunk control and without pain LTG Duration 08/19/19 Assessment Summary Assessment Introduced more rotation stabilization ther ex today with pt tolerating well. She still struggles with carrying loads of laundry up stairs but admits it is getting easier. She has met most short term goals and continues to progress. Physical Therapy Plan Frequency and Duration Frequency of Treatment 1-2x/week Duration of Treatment 8 weeks Plan of Care Start Date 06/24/19 Plan of Care End Date 08/19/19 Therapeutic Interventions Therapeutic Interventions Gait Training,Home Exercise Program,Joint Mobilizations, Manual Therapy,Neuromuscular Re-education,Patient/Caregiver Education,Self-Care/Home Management,Sensory Integration ,Soft Tissue Mobilization, Taping,Therapeutic Activities, Therapeutic Exercises Modalities Biofeedback,Cold Pack/Ice Massage,Hot Packs Next Visit Focus/Plan Next Note Type Treatment Note Next Visit Plan progress ther ex for hip strengthening, progress abdominal strengthening with functional movements such as lifting and carrying
--- NOTE | 2019-07-24 12:10 | PT.OTN ---
Current Diagnoses Personal history of other diseases of the digestive system (07/24/19) Other specified postprocedural states (07/24/19) Physical Therapy Treatment Note PT-OP-A Visit Information Start: 06/24/19 11:08 Freq: Status: Active Protocol: Document 07/24/19 11:58 AW (Rec: 07/24/19 12:10 AW [email or web address]) Out-Patient Physical Therapy Visit Information Visit Information Visit Type Treatment Note Visit Start Time 11:16 Visit Stop Time 11:57 Total Visit Minutes 41 Visit Number 7 Evaluation Information Evaluation Date 06/24/19 PT-OP-B Current Condition Start: 06/24/19 11:08 Freq: Status: Active Protocol: Document 06/24/19 11:08 AW (Rec: 06/24/19 12:23 AW [email or web address]) Current Condition History of Current Condition Onset Date two years Current Complaints abdominal weakness, low back pain, right posterior hip pain History of Current Condition Jada has had 8 abdominal surgeries over the past five years, including surgery for diverticulitis, ostomy takedown, x 1, and multiple ventral hernia repairs. Her last surgery was performed at [facility] in [place] at the end of January 2019. She no longer has any post-op precautions. She complains of RUQ abdominal cramping which occurs in sitting and with increased intra-abdominal pressure such as with sneezing. She also notes lack of midline abdominal sensation. Most significantly, she complains of core weakness which makes it difficult to berry picker her 5- year old twins who weigh ~35 pounds, to carry laundry up the stairs, and to reach forward to pick wet laundry out of the bottom of her top- loading machine. Robaxacet ( acetaminophen + muscle relaxant), rest, and stretching her abdomen decrease her symptoms. Sitting , reaching, lifting, and carrying make them worse. Prior Treatments and Tests No therapy outside of hospital setting Future Testing and Treatments Planned None identified Treatment Goals Patient/Caregiver Goals Pt would like to increase her confidence in engaging her trunk muscles to improve her ability to care for her children, lift, carry, and reach. 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 Current Functional Impairments (Reported) Functional Limitations- ADL's Difficulty carrying laundry up the stairs, lifting heavy pots from the back of the stove, lifting and carrying her children due to trunk weakness. Personal Factors Other Personal Factors That May Effect (-) Multiple abdominal Therapy/Recovery surgeries (+) Good spouse/family support (+) Previously active lifestyle (+) Motivation to return to PLOF. PT-OP-C Subjective Start: 06/24/19 11:08 Freq: Status: Active Protocol: Document 07/24/19 11:58 AW (Rec: 07/24/19 12:10 AW [email or web address]) OP-PT Subjective Patient Comments Patient Comments I'm having less cramping overall but did have mild RUQ cramp last night, now resolved . Patient Reported Progress Improving PT-OP-J Posture/Palpation/Skin Start: 06/24/19 11:08 Freq: Status: Active Protocol: Document 06/24/19 11:08 AW (Rec: 06/24/19 12:23 AW [email or web address]) Posture Evaluation Comments Posture Comments Pt with costal angle >90 degrees and with mildly increased lumbar lordosis Skin Assessment Incisional Assessment Incision Appearance/Comments Pt has a 9 midline abdominal scar from costal angle to level of ASIS. Scar is well- healed and has good mobility. No adhesions noted. PT-OP-K Range of Motion Start: 06/24/19 11:08 Freq: Status: Active Protocol: Document 06/24/19 11:08 AW (Rec: 06/24/19 12:23 AW [email or web address]) Lumbar Spine Range of Motion Lumbar Spine Active Percentage Testing Position Standing Comments Lumbar spine ROM WNL all planes. Hip Goniometric Range of Motion Hip Active Hip ROM WFL Yes Hip ROM Limitations Comments Bilateral hip ROM WNL with no pain provocation PT-OP-L Special Tests Start: 06/24/19 11:08 Freq: Status: Active Protocol: Document 06/24/19 11:08 AW (Rec: 06/24/19 12:23 AW [email or web address]) Special Tests Lumbar Spine Special Tests Straight Leg Raise Test Results pt reports easier supine SLR with compression through pelvis at ASIS lvl Hip Special Tests Scour Test Test Results negative bilaterally PT-OP-M Strength Start: 06/24/19 11:08 Freq: Status: Active Protocol: Document 06/24/19 11:08 AW (Rec: 06/24/19 12:23 AW [email or web address]) Trunk Strength Trunk Manual Muscle Testing Comments In supine, pt able to lower BLE slowly from fully raised position with good control Hip Strength Hip Manual Muscle Testing Right Flexion (L2) 4+ Good+ Extension (S1) 4- Good- Abduction 4 Good Adduction 4- Good- External Rotation 4+ Good+ Internal Rotation 4+ Good+ Left Flexion (L2) 4+ Good+ Extension (S1) 4- Good- Abduction 4 Good Adduction 4- Good- External Rotation 4+ Good+ Internal Rotation 4+ Good+ PT-OP-Q Treatments Start: 06/24/19 11:08 Freq: Status: Active Protocol: Document 07/24/19 11:58 AW (Rec: 07/24/19 12:10 AW [email or web address]) Cardio Equipment Elliptical Duration (Minutes) 5 Resistance 4 Therapeutic Exercises Supine Exercises 5 Supine Exercise Name double leg lift and lower Side bilateral Reps/Minutes 2x10 reps Comments pt lowered to ~40 degrees before noticeable lumbar lordosis 4 Supine Exercise Name bilat knees to chest Side bilateral Reps/Minutes 30 sec hold x 2 3 Supine Exercise Name bugs Side bilateral Reps/Minutes 2x12 reps Comments started in 90/90; extend one leg and raise contralat arm overhead lower trunk rotation Supine Exercise Name lower trunk rotation Side bilateral Reps/Minutes 12 x 2 Comments cues on flat back Prone Exercises 1 Prone Exercise Name quadruped single arm flexion, kick back, bird dog Side bilateral Reps/Minutes 1x10 bilat each Comments VC/TC to avoid pelvic rotation ; progressed to kick back and bird dog Sitting Exercises 1 Sitting Exercise Name diagonal chops with medicine ball Side bilateral Resistance 3.3# Equipment Used medicine ball Reps/Minutes 3x12 reps Comments elbows extended throughout range vatican citizen ball shoulder row Sitting Exercise Name vatican citizen ball shoulder row Resistance level 3 Equipment Used 65 cm ball; T band Reps/Minutes 2x10 reps Comments cues to avoid shoulder elevation Standing Exercises 1 Standing Exercise Name anti-rotation Side bilateral Resistance level 3 Equipment Used T band Reps/Minutes 2x10 reps Comments cues for shoulders over hips Therapeutic Activity Therapeutic Activity 1 Name standing abdominal wall shortening with box lift Reps/Minutes 8 minutes Comments Crate with weights (5.5#) set on 17 chair. Cues for elbows tucked to ribs and abdominal engagement. Cues for hip hinge , glute and abdominal engagement. Self-Care/Home Management Treatment Education Patient Education Home Exercise Program Other Education HEP: - supine L/S rotation - supine adduction with pillow or ball - vatican citizen ball pelvic tilt - vatican citizen ball marching - seated abdominal eccentric lean - bird dog - anti-rotation/paloff press with lvl 3 band PT-OP-T Assessment and Plan Start: 06/24/19 11:08 Freq: Status: Active Protocol: Document 07/24/19 11:58 AW (Rec: 07/24/19 12:10 AW [email or web address]) Physical Therapy Assessment Goals 3 Impairment Pt has no HEP Short Term Goal (STG) Pt will be independent with HEP for support in therapy services provided in clinic 07/17/19 MET STG Duration 07/22/19 2 Impairment abdominal cramping/pain Short Term Goal (STG) Pt will report use of robaxacet <2 times per week 07/17/19 MET STG Duration 07/22/19 Mcfp Goal (LTG) Pt will report use of robaxacet 1 time per week or less LTG Duration 08/19/19 1 Impairment impaired lifting Short Term Goal (STG) Pt will carry full load of laundry up stairs with good trunk control/stability and without pain 07/17/19 PARTIALLY MET STG Duration 07/22/19 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 Pt tolerated well. Added bird dog and standing Paloff press to HEP. Physical Therapy Plan Frequency and Duration Frequency of Treatment 1-2x/week Duration of Treatment 8 weeks Plan of Care Start Date 06/24/19 Plan of Care End Date 08/19/19 Therapeutic Interventions Therapeutic Interventions Gait Training,Home Exercise Program,Joint Mobilizations, Manual Therapy,Neuromuscular Re-education,Patient/Caregiver Education,Self-Care/Home Management,Sensory Integration ,Soft Tissue Mobilization, Taping,Therapeutic Activities, Therapeutic Exercises Modalities Biofeedback,Cold Pack/Ice Massage,Hot Packs Next Visit Focus/Plan Next Note Type Treatment Note Next Visit Plan progress ther ex for hip strengthening, progress abdominal strengthening with functional movements such as lifting and carrying
--- NOTE | 2019-07-25 12:57 | PT.OTN ---
Current Diagnoses Personal history of other diseases of the digestive system (07/25/19) Other specified postprocedural states (07/25/19) Physical Therapy Treatment Note PT-OP-A Visit Information Start: 06/24/19 11:08 Freq: Status: Active Protocol: Document 07/25/19 11:15 AMB (Rec: 07/25/19 12:05 AMB [email or web address]) Out-Patient Physical Therapy Visit Information Visit Information Visit Type Treatment Note Visit Start Time 11:15 Visit Stop Time 12:00 Total Visit Minutes 45 Visit Number 8 PT-OP-B Current Condition Start: 06/24/19 11:08 Freq: Status: Active Protocol: Document 06/24/19 11:08 AW (Rec: 06/24/19 12:23 AW [email or web address]) Current Condition History of Current Condition Onset Date two years Current Complaints abdominal weakness, low back pain, right posterior hip pain History of Current Condition Jada has had 8 abdominal surgeries over the past five years, including surgery for diverticulitis, ostomy takedown, x 1, and multiple ventral hernia repairs. Her last surgery was performed at [facility] in [place] at the end of January 2019. She no longer has any post-op precautions. She complains of RUQ abdominal cramping which occurs in sitting and with increased intra-abdominal pressure such as with sneezing. She also notes lack of midline abdominal sensation. 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 Robaxacet ( acetaminophen + muscle relaxant), rest, and stretching her abdomen decrease her symptoms. Sitting , reaching, lifting, and carrying make them worse. Prior Treatments and Tests No therapy outside of hospital setting Future Testing and Treatments Planned None identified Treatment Goals Patient/Caregiver Goals Pt would like to increase her confidence in engaging her trunk muscles to improve her ability to care for her children, lift, carry, and reach. 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 Current Functional Impairments (Reported) Functional Limitations- ADL's Difficulty carrying laundry up the stairs, lifting heavy pots from the back of the stove, lifting and carrying her children due to trunk weakness. Personal Factors Other Personal Factors That May Effect (-) Multiple abdominal Therapy/Recovery surgeries (+) Good spouse/family support (+) Previously active lifestyle (+) Motivation to return to PLOF. PT-OP-C Subjective Start: 06/24/19 11:08 Freq: Status: Active Protocol: Document 07/25/19 11:15 AMB (Rec: 07/25/19 12:53 AMB [email or web address]) OP-PT Subjective Patient Comments Patient Comments Aicha reports she will intermittenlty leak with sneezing, but hasn't noticed too much of that. She does try to do daily Kegels. PT-OP-I Pelvic Floor Start: 06/24/19 11:08 Freq: Status: Active Protocol: Document 07/25/19 11:15 AMB (Rec: 07/25/19 12:57 AMB [email or web address]) Pelvic Floor Assessment Urine Leakage Size Small Leakage Cause Lifting Leaks Per Day infrequent Pelvic Clock Pelvic Clock Other no tenderness noted Prolapse Uterine Prolapse Grade 1 Prolapse Comments only visible with valsalva Perineal Descent Resting Absent Bearing Present Contraction Ability Voluntary Contraction Moderate Voluntary Relaxation Weak Manual Muscle Testing Left 2 Manual Muscle Testing Right 2 Manual Muscle Testing Anterior 3 Manual Muscle Testing Posterior 3 PT-OP-J Posture/Palpation/Skin Start: 06/24/19 11:08 Freq: Status: Active Protocol: Document 06/24/19 11:08 AW (Rec: 06/24/19 12:23 AW [email or web address]) Posture Evaluation Comments Posture Comments Pt with costal angle >90 degrees and with mildly increased lumbar lordosis Skin Assessment Incisional Assessment Incision Appearance/Comments Pt has a 9 midline abdominal scar from costal angle to level of ASIS. Scar is well- healed and has good mobility. No adhesions noted. PT-OP-K Range of Motion Start: 06/24/19 11:08 Freq: Status: Active Protocol: Document 06/24/19 11:08 AW (Rec: 06/24/19 12:23 AW [email or web address]) Lumbar Spine Range of Motion Lumbar Spine Active Percentage Testing Position Standing Comments Lumbar spine ROM WNL all planes. Hip Goniometric Range of Motion Hip Active Hip ROM WFL Yes Hip ROM Limitations Comments Bilateral hip ROM WNL with no pain provocation PT-OP-L Special Tests Start: 06/24/19 11:08 Freq: Status: Active Protocol: Document 06/24/19 11:08 AW (Rec: 06/24/19 12:23 AW [email or web address]) Special Tests Lumbar Spine Special Tests Straight Leg Raise Test Results pt reports easier supine SLR with compression through pelvis at ASIS lvl Hip Special Tests Scour Test Test Results negative bilaterally PT-OP-M Strength Start: 06/24/19 11:08 Freq: Status: Active Protocol: Document 06/24/19 11:08 AW (Rec: 06/24/19 12:23 AW [email or web address]) Trunk Strength Trunk Manual Muscle Testing Comments In supine, pt able to lower BLE slowly from fully raised position with good control Hip Strength Hip Manual Muscle Testing Right Flexion (L2) 4+ Good+ Extension (S1) 4- Good- Abduction 4 Good Adduction 4- Good- External Rotation 4+ Good+ Internal Rotation 4+ Good+ Left Flexion (L2) 4+ Good+ Extension (S1) 4- Good- Abduction 4 Good Adduction 4- Good- External Rotation 4+ Good+ Internal Rotation 4+ Good+ PT-OP-Q Treatments Start: 06/24/19 11:08 Freq: Status: Active Protocol: Document 07/25/19 11:15 AMB (Rec: 07/25/19 12:53 AMB [email or web address]) Therapeutic Exercises Supine Exercises 1 Supine Exercise Name instruction in PF isolation Comments quick flicks and long holds in hooklying PT-OP-T Assessment and Plan Start: 06/24/19 11:08 Freq: Status: Active Protocol: Document 07/25/19 11:15 AMB (Rec: 07/25/19 12:53 AMB [email or web address]) Physical Therapy Assessment Assessment Summary Assessment Aicha had good pelvic floor strength, but has a tendency to compensate with gluteals and hold her breath. She also feels like she may be bearing down to urinate and with lifting, so encouraged her to be aware of this especially considering her grade 1 prolapse and starting menopause. Physical Therapy Plan Frequency and Duration Frequency of Treatment 1-2x/week Duration of Treatment 8 weeks Plan of Care Start Date 06/24/19 Plan of Care End Date 08/19/19 Therapeutic Interventions Therapeutic Interventions Gait Training,Home Exercise Program,Joint Mobilizations, Manual Therapy,Neuromuscular Re-education,Patient/Caregiver Education,Self-Care/Home Management,Sensory Integration ,Soft Tissue Mobilization, Taping,Therapeutic Activities, Therapeutic Exercises Modalities Biofeedback,Cold Pack/Ice Massage,Hot Packs Next Visit Focus/Plan Next Note Type Treatment Note Next Visit Plan Continue strengthening, but also encourage pt in pelvic floor awareness with exercises . progress ther ex for hip strengthening, progress abdominal strengthening with functional movements such as lifting and carrying
--- NOTE | 2019-07-29 12:16 | PT.OTN ---
Current Diagnoses Personal history of other diseases of the digestive system (07/29/19) Other specified postprocedural states (07/29/19) Physical Therapy Treatment Note PT-OP-A Visit Information Start: 06/24/19 11:08 Freq: Status: Active Protocol: Document 07/29/19 12:02 AW (Rec: 07/29/19 12:15 AW [email or web address]) Out-Patient Physical Therapy Visit Information Visit Information Visit Type Treatment Note Visit Start Time 11:15 Visit Stop Time 11:59 Total Visit Minutes 44 Visit Number 9 PT-OP-B Current Condition Start: 06/24/19 11:08 Freq: Status: Active Protocol: Document 06/24/19 11:08 AW (Rec: 06/24/19 12:23 AW [email or web address]) Current Condition History of Current Condition Onset Date two years Current Complaints abdominal weakness, low back pain, right posterior hip pain History of Current Condition Jada has had 8 abdominal surgeries over the past five years, including surgery for diverticulitis, ostomy takedown, x 1, and multiple ventral hernia repairs. Her last surgery was performed at [facility] in [place] at the end of January 2019. She no longer has any post-op precautions. She complains of RUQ abdominal cramping which occurs in sitting and with increased intra-abdominal pressure such as with sneezing. She also notes lack of midline abdominal sensation. 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 Robaxacet ( acetaminophen + muscle relaxant), rest, and stretching her abdomen decrease her symptoms. Sitting , reaching, lifting, and carrying make them worse. Prior Treatments and Tests No therapy outside of hospital setting Future Testing and Treatments Planned None identified Treatment Goals Patient/Caregiver Goals Pt would like to increase her confidence in engaging her trunk muscles to improve her ability to care for her children, lift, carry, and reach. 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 Current Functional Impairments (Reported) Functional Limitations- ADL's Difficulty carrying laundry up the stairs, lifting heavy pots from the back of the stove, lifting and carrying her children due to trunk weakness. Personal Factors Other Personal Factors That May Effect (-) Multiple abdominal Therapy/Recovery surgeries (+) Good spouse/family support (+) Previously active lifestyle (+) Motivation to return to PLOF. PT-OP-C Subjective Start: 06/24/19 11:08 Freq: Status: Active Protocol: Document 07/29/19 12:02 AW (Rec: 07/29/19 12:15 AW [email or web address]) OP-PT Subjective Patient Comments Patient Comments I carried a heavy load of laundry up half my steps with good strength before I felt my form break down. I was able to reset and get up the rest of the stairs. Patient Reported Progress Improving PT-OP-I Pelvic Floor Start: 06/24/19 11:08 Freq: Status: Active Protocol: Document 07/25/19 11:15 AMB (Rec: 07/25/19 12:57 AMB [email or web address]) Pelvic Floor Assessment Urine Leakage Size Small Leakage Cause Lifting Leaks Per Day infrequent Pelvic Clock Pelvic Clock Other no tenderness noted Prolapse Uterine Prolapse Grade 1 Prolapse Comments only visible with valsalva Perineal Descent Resting Absent Bearing Present Contraction Ability Voluntary Contraction Moderate Voluntary Relaxation Weak Manual Muscle Testing Left 2 Manual Muscle Testing Right 2 Manual Muscle Testing Anterior 3 Manual Muscle Testing Posterior 3 PT-OP-J Posture/Palpation/Skin Start: 06/24/19 11:08 Freq: Status: Active Protocol: Document 06/24/19 11:08 AW (Rec: 06/24/19 12:23 AW [email or web address]) Posture Evaluation Comments Posture Comments Pt with costal angle >90 degrees and with mildly increased lumbar lordosis Skin Assessment Incisional Assessment Incision Appearance/Comments Pt has a 9 midline abdominal scar from costal angle to level of ASIS. Scar is well- healed and has good mobility. No adhesions noted. PT-OP-K Range of Motion Start: 06/24/19 11:08 Freq: Status: Active Protocol: Document 06/24/19 11:08 AW (Rec: 06/24/19 12:23 AW [email or web address]) Lumbar Spine Range of Motion Lumbar Spine Active Percentage Testing Position Standing Comments Lumbar spine ROM WNL all planes. Hip Goniometric Range of Motion Hip Active Hip ROM WFL Yes Hip ROM Limitations Comments Bilateral hip ROM WNL with no pain provocation PT-OP-L Special Tests Start: 06/24/19 11:08 Freq: Status: Active Protocol: Document 06/24/19 11:08 AW (Rec: 06/24/19 12:23 AW [email or web address]) Special Tests Lumbar Spine Special Tests Straight Leg Raise Test Results pt reports easier supine SLR with compression through pelvis at ASIS lvl Hip Special Tests Scour Test Test Results negative bilaterally PT-OP-M Strength Start: 06/24/19 11:08 Freq: Status: Active Protocol: Document 06/24/19 11:08 AW (Rec: 06/24/19 12:23 AW [email or web address]) Trunk Strength Trunk Manual Muscle Testing Comments In supine, pt able to lower BLE slowly from fully raised position with good control Hip Strength Hip Manual Muscle Testing Right Flexion (L2) 4+ Good+ Extension (S1) 4- Good- Abduction 4 Good Adduction 4- Good- External Rotation 4+ Good+ Internal Rotation 4+ Good+ Left Flexion (L2) 4+ Good+ Extension (S1) 4- Good- Abduction 4 Good Adduction 4- Good- External Rotation 4+ Good+ Internal Rotation 4+ Good+ PT-OP-Q Treatments Start: 06/24/19 11:08 Freq: Status: Active Protocol: Document 07/29/19 12:02 AW (Rec: 07/29/19 12:15 AW [email or web address]) Cardio Equipment Elliptical Duration (Minutes) 5 Resistance 5 Therapeutic Exercises Supine Exercises piriformis stretch Supine Exercise Name piriformis stretch Side bilateral Reps/Minutes 2 minutes Comments knee to opposite shoulder 3 Supine Exercise Name bugs Side bilateral Reps/Minutes 2x12 reps Comments improved breath control with fewer verbal cues bridge Supine Exercise Name single leg bridge Side bilateral Reps/Minutes 2x5 reps each side Comments fewer cues for stable pelvis Sitting Exercises filipino ball trunk flexion Sitting Exercise Name filipino ball trunk flexion pull down Resistance level 2 T band Equipment Used 65 cm ball Reps/Minutes 2x10 reps Comments T band anchored overhead eccentric abdominal lean back Sitting Exercise Name eccentric abdominal lean back Resistance level 2 T band Equipment Used 65 cm ball Reps/Minutes 1x10 reps Comments T band anchored overhead Standing Exercises resisted hip flexion Standing Exercise Name resisted hip flexion Side bilateral Equipment Used yellow band Reps/Minutes 2x10 reps resisted side stepping Standing Exercise Name resisted side stepping Side bilateral Equipment Used yellow band Reps/Minutes 12 feet x 4 Therapeutic Activity Therapeutic Activity 1 Name standing abdominal wall shortening with box lift Reps/Minutes 10 minutes Comments Crate with weights (7.7#, 9.9# ) set on 17 chair. Cues for elbows tucked to ribs and abdominal engagement. Cues for hip hinge, glute and abdominal engagement. Progressed from standing hold 15 seconds each to walking short lap with weight to up/ down 4 steps with weight. Self-Care/Home Management Treatment Education Patient Education Home Exercise Program Other Education HEP: - supine L/S rotation - supine adduction with pillow or ball - filipino ball pelvic tilt - filipino ball marching - seated abdominal eccentric lean - bird dog - anti-rotation/paloff press with lvl 3 band ADDED - resisted side-stepping PT-OP-T Assessment and Plan Start: 06/24/19 11:08 Freq: Status: Active Protocol: Document 07/29/19 12:02 AW (Rec: 07/29/19 12:15 AW [email or web address]) Physical Therapy Assessment Goals 3 Impairment Pt has no HEP Short Term Goal (STG) Pt will be independent with HEP for support in therapy services provided in clinic 07/17/19 MET STG Duration 07/22/19 2 Impairment abdominal cramping/pain Short Term Goal (STG) Pt will report use of robaxacet <2 times per week 07/17/19 MET STG Duration 07/22/19 Nursing Home Goal (LTG) Pt will report use of robaxacet 1 time per week or less LTG Duration 08/19/19 1 Impairment impaired lifting Short Term Goal (STG) Pt will carry full load of laundry up stairs with good trunk control/stability and without pain 07/17/19 PARTIALLY MET STG Duration 07/22/19 Nursing Home Goal (LTG) Pt will lift one of her children with good trunk control and without pain LTG Duration 08/19/19 Assessment Summary Assessment Aicha continues to feel stronger , noticing greater lower abdominal engagement. She continues to feel sharp pain of internal stitches in her abdominal RUQ with lifting. Will be important to grade her exposure to this sensation in order to build her confidence . Pt had good awareness today of diaphragmatic/pelvic floor mechanics and was able to incorporate those concepts into her breathing/lifting. Physical Therapy Plan Frequency and Duration Frequency of Treatment 1-2x/week Duration of Treatment 8 weeks Plan of Care Start Date 06/24/19 Plan of Care End Date 08/19/19 Therapeutic Interventions Therapeutic Interventions Gait Training,Home Exercise Program,Joint Mobilizations, Manual Therapy,Neuromuscular Re-education,Patient/Caregiver Education,Self-Care/Home Management,Sensory Integration ,Soft Tissue Mobilization, Taping,Therapeutic Activities, Therapeutic Exercises Modalities Biofeedback,Cold Pack/Ice Massage,Hot Packs Next Visit Focus/Plan Next Note Type Treatment Note Next Visit Plan Continue strengthening, but also encourage pt in pelvic floor awareness with exercises . progress ther ex for hip strengthening, progress abdominal strengthening with functional movements such as lifting and carrying
--- NOTE | 2019-07-31 16:15 | PT.OTN ---
Current Diagnoses Personal history of other diseases of the digestive system (07/31/19) Other specified postprocedural states (07/31/19) Physical Therapy Treatment Note PT-OP-A Visit Information Start: 06/24/19 11:08 Freq: Status: Active Protocol: Document 07/31/19 13:31 AW (Rec: 07/31/19 16:14 AW [email or web address]) Out-Patient Physical Therapy Visit Information Visit Information Visit Type Treatment Note Visit Start Time 11:14 Visit Stop Time 11:57 Total Visit Minutes 43 Visit Number 10 PT-OP-B Current Condition Start: 06/24/19 11:08 Freq: Status: Active Protocol: Document 06/24/19 11:08 AW (Rec: 06/24/19 12:23 AW [email or web address]) Current Condition History of Current Condition Onset Date two years Current Complaints abdominal weakness, low back pain, right posterior hip pain History of Current Condition Jada has had 8 abdominal surgeries over the past five years, including surgery for diverticulitis, ostomy takedown, x 1, and multiple ventral hernia repairs. Her last surgery was performed at [facility] in [place] at the end of January 2019. She no longer has any post-op precautions. She complains of RUQ abdominal cramping which occurs in sitting and with increased intra-abdominal pressure such as with sneezing. She also notes lack of midline abdominal sensation. 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 Robaxacet ( acetaminophen + muscle relaxant), rest, and stretching her abdomen decrease her symptoms. Sitting , reaching, lifting, and carrying make them worse. Prior Treatments and Tests No therapy outside of hospital setting Future Testing and Treatments Planned None identified Treatment Goals Patient/Caregiver Goals Pt would like to increase her confidence in engaging her trunk muscles to improve her ability to care for her children, lift, carry, and reach. 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 Current Functional Impairments (Reported) Functional Limitations- ADL's Difficulty carrying laundry up the stairs, lifting heavy pots from the back of the stove, lifting and carrying her children due to trunk weakness. Personal Factors Other Personal Factors That May Effect (-) Multiple abdominal Therapy/Recovery surgeries (+) Good spouse/family support (+) Previously active lifestyle (+) Motivation to return to PLOF. PT-OP-C Subjective Start: 06/24/19 11:08 Freq: Status: Active Protocol: Document 07/31/19 13:31 AW (Rec: 07/31/19 16:14 AW [email or web address]) OP-PT Subjective Patient Comments Patient Comments I still feel the stitches/mesh when I lift and carry. Patient Reported Progress Improving PT-OP-I Pelvic Floor Start: 06/24/19 11:08 Freq: Status: Active Protocol: Document 07/25/19 11:15 AMB (Rec: 07/25/19 12:57 AMB [email or web address]) Pelvic Floor Assessment Urine Leakage Size Small Leakage Cause Lifting Leaks Per Day infrequent Pelvic Clock Pelvic Clock Other no tenderness noted Prolapse Uterine Prolapse Grade 1 Prolapse Comments only visible with valsalva Perineal Descent Resting Absent Bearing Present Contraction Ability Voluntary Contraction Moderate Voluntary Relaxation Weak Manual Muscle Testing Left 2 Manual Muscle Testing Right 2 Manual Muscle Testing Anterior 3 Manual Muscle Testing Posterior 3 PT-OP-J Posture/Palpation/Skin Start: 06/24/19 11:08 Freq: Status: Active Protocol: Document 06/24/19 11:08 AW (Rec: 06/24/19 12:23 AW [email or web address]) Posture Evaluation Comments Posture Comments Pt with costal angle >90 degrees and with mildly increased lumbar lordosis Skin Assessment Incisional Assessment Incision Appearance/Comments Pt has a 9 midline abdominal scar from costal angle to level of ASIS. Scar is well- healed and has good mobility. No adhesions noted. PT-OP-K Range of Motion Start: 06/24/19 11:08 Freq: Status: Active Protocol: Document 06/24/19 11:08 AW (Rec: 06/24/19 12:23 AW [email or web address]) Lumbar Spine Range of Motion Lumbar Spine Active Percentage Testing Position Standing Comments Lumbar spine ROM WNL all planes. Hip Goniometric Range of Motion Hip Active Hip ROM WFL Yes Hip ROM Limitations Comments Bilateral hip ROM WNL with no pain provocation PT-OP-L Special Tests Start: 06/24/19 11:08 Freq: Status: Active Protocol: Document 06/24/19 11:08 AW (Rec: 06/24/19 12:23 AW [email or web address]) Special Tests Lumbar Spine Special Tests Straight Leg Raise Test Results pt reports easier supine SLR with compression through pelvis at ASIS lvl Hip Special Tests Scour Test Test Results negative bilaterally PT-OP-M Strength Start: 06/24/19 11:08 Freq: Status: Active Protocol: Document 06/24/19 11:08 AW (Rec: 06/24/19 12:23 AW [email or web address]) Trunk Strength Trunk Manual Muscle Testing Comments In supine, pt able to lower BLE slowly from fully raised position with good control Hip Strength Hip Manual Muscle Testing Right Flexion (L2) 4+ Good+ Extension (S1) 4- Good- Abduction 4 Good Adduction 4- Good- External Rotation 4+ Good+ Internal Rotation 4+ Good+ Left Flexion (L2) 4+ Good+ Extension (S1) 4- Good- Abduction 4 Good Adduction 4- Good- External Rotation 4+ Good+ Internal Rotation 4+ Good+ PT-OP-Q Treatments Start: 06/24/19 11:08 Freq: Status: Active Protocol: Document 07/31/19 13:31 AW (Rec: 07/31/19 16:14 AW [email or web address]) Cardio Equipment Elliptical Duration (Minutes) 5 Resistance 5 Therapeutic Exercises Supine Exercises bridge Supine Exercise Name single leg bridge Side bilateral Reps/Minutes 2x5 reps each side Comments fewer cues for stable pelvis Prone Exercises prone press up Prone Exercise Name prone press up Reps/Minutes 3 min Comments pt feels mesh when lying flat prone, but likes the stretch with press up 1 Prone Exercise Name quadruped single arm flexion, kick back, bird dog Side bilateral Reps/Minutes 1x10 bilat each Comments VC/TC to avoid pelvic rotation ; progressed to kick back and bird dog Sitting Exercises tur[place] and [place] islander ball trunk flexion Sitting Exercise Name [place] islander ball trunk flexion pull down Resistance level 2 T band Equipment Used 65 cm ball Reps/Minutes 2x10 reps Comments T band anchored overhead turks and [place] islander ball Sitting Exercise Name tur[place] islander ball marching with arm swing Side bilateral Equipment Used 65 cm ball Reps/Minutes 4 minutes Comments pt able to swing arms [place] Standing Exercises resisted hip extension Standing Exercise Name resisted hip extension Side bilateral Resistance green loop Reps/Minutes 2x10 bilat trunk rotation Standing Exercise Name trunk rotation Side bilateral Resistance level 3 Equipment Used T band Reps/Minutes 2x10 reps each direction resisted side stepping Standing Exercise Name monster walk Side bilateral Equipment Used green band Reps/Minutes 12 feet x 4 1 Standing Exercise Name anti-rotation Side bilateral Resistance level 3 Equipment Used T band Reps/Minutes 2x10 reps Comments cues for shoulders over hips Therapeutic Activity Therapeutic Activity 1 Name standing abdominal wall shortening with box lift Reps/Minutes 10 minutes Comments Crate with weights set on 17 chair. Cues for elbows tucked to ribs and abdominal engagement. Cues for hip hinge , glute and abdominal engagement. Progressed from walking short lap with weight to 100 feet with weight. Pt reports sensation of not being able to engage upper abdominal muscles with lifting . She is also aware of the mesh/stitches when lifting. Self-Care/Home Management Treatment Education Patient Education Home Exercise Program Other Education HEP: - supine L/S rotation - supine adduction with pillow or ball - [place] islander ball pelvic tilt - tur[place] islander ball marching - seated abdominal eccentric lean - bird dog - anti-rotation/paloff press with lvl 3 band - resisted side-stepping PT-OP-T Assessment and Plan Start: 06/24/19 11:08 Freq: Status: Active Protocol: Document 07/31/19 13:31 AW (Rec: 07/31/19 16:14 AW [email or web address]) Physical Therapy Assessment Goals 3 Impairment Pt has no HEP Short Term Goal (STG) Pt will be independent with HEP for support in therapy services provided in clinic 07/17/19 MET STG Duration 07/22/19 2 Impairment abdominal cramping/pain Short Term Goal (STG) Pt will report use of robaxacet <2 times per week 07/17/19 MET STG Duration 07/22/19 Half-Way Goal (LTG) Pt will report use of robaxacet 1 time per week or less LTG Duration 08/19/19 1 Impairment impaired lifting Short Term Goal (STG) Pt will carry full load of laundry up stairs with good trunk control/stability and without pain 07/17/19 PARTIALLY MET STG Duration 07/22/19 Half-Way Goal (LTG) Pt will lift one of her children with good trunk control and without pain LTG Duration 08/19/19 Assessment Summary Assessment Pt has most difficulty with lifting and carrying. Will continue to grade her exposure to these activities due to sensation of mesh/stitches interfering with her abdominal engagement. Physical Therapy Plan Frequency and Duration Frequency of Treatment 1-2x/week Duration of Treatment 8 weeks Plan of Care Start Date 06/24/19 Plan of Care End Date 08/19/19 Therapeutic Interventions Therapeutic Interventions Gait Training,Home Exercise Program,Joint Mobilizations, Manual Therapy,Neuromuscular Re-education,Patient/Caregiver Education,Self-Care/Home Management,Sensory Integration ,Soft Tissue Mobilization, Taping,Therapeutic Activities, Therapeutic Exercises Modalities Biofeedback,Cold Pack/Ice Massage,Hot Packs Next Visit Focus/Plan Next Note Type Treatment Note Next Visit Plan Continue strengthening, but also encourage pt in pelvic floor awareness with exercises . progress ther ex for hip strengthening, progress abdominal strengthening with functional movements such as lifting and carrying
--- NOTE | 2019-08-08 16:30 | PT.OTN ---
Current Diagnoses Personal history of other diseases of the digestive system (08/08/19) Other specified postprocedural states (08/08/19) Physical Therapy Treatment Note PT-OP-A Visit Information Start: 06/24/19 11:08 Freq: Status: Active Protocol: Document 08/08/19 13:00 AMB (Rec: 08/08/19 16:30 AMB [email or web address]) Out-Patient Physical Therapy Visit Information Visit Information Visit Type Treatment Note Visit Start Time 13:00 Visit Stop Time 13:45 Total Visit Minutes 45 Visit Number 1 PT-OP-B Current Condition Start: 06/24/19 11:08 Freq: Status: Active Protocol: Document 06/24/19 11:08 AW (Rec: 06/24/19 12:23 AW [email or web address]) Current Condition History of Current Condition Onset Date two years Current Complaints abdominal weakness, low back pain, right posterior hip pain History of Current Condition Jada has had 8 abdominal surgeries over the past five years, including surgery for diverticulitis, ostomy takedown, x 1, and multiple ventral hernia repairs. Her last surgery was performed at [facility] in [place] at the end of January 2019. She no longer has any post-op precautions. She complains of RUQ abdominal cramping which occurs in sitting and with increased intra-abdominal pressure such as with sneezing. She also notes lack of midline abdominal sensation. 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 Robaxacet ( acetaminophen + muscle relaxant), rest, and stretching her abdomen decrease her symptoms. Sitting , reaching, lifting, and carrying make them worse. Prior Treatments and Tests No therapy outside of hospital setting Future Testing and Treatments Planned None identified Treatment Goals Patient/Caregiver Goals Pt would like to increase her confidence in engaging her trunk muscles to improve her ability to care for her children, lift, carry, and reach. 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 Current Functional Impairments (Reported) Functional Limitations- ADL's Difficulty carrying laundry up the stairs, lifting heavy pots from the back of the stove, lifting and carrying her children due to trunk weakness. Personal Factors Other Personal Factors That May Effect (-) Multiple abdominal Therapy/Recovery surgeries (+) Good spouse/family support (+) Previously active lifestyle (+) Motivation to return to PLOF. PT-OP-C Subjective Start: 06/24/19 11:08 Freq: Status: Active Protocol: Document 08/08/19 13:00 AMB (Rec: 08/08/19 16:30 AMB [email or web address]) OP-PT Subjective Patient Comments Patient Comments Pt reports overall she is feeling like she is improving, it is still difficult to engage the upper abdominal muscles. PT-OP-I Pelvic Floor Start: 06/24/19 11:08 Freq: Status: Active Protocol: Document 07/25/19 11:15 AMB (Rec: 07/25/19 12:57 AMB [email or web address]) Pelvic Floor Assessment Urine Leakage Size Small Leakage Cause Lifting Leaks Per Day infrequent Pelvic Clock Pelvic Clock Other no tenderness noted Prolapse Uterine Prolapse Grade 1 Prolapse Comments only visible with valsalva Perineal Descent Resting Absent Bearing Present Contraction Ability Voluntary Contraction Moderate Voluntary Relaxation Weak Manual Muscle Testing Left 2 Manual Muscle Testing Right 2 Manual Muscle Testing Anterior 3 Manual Muscle Testing Posterior 3 PT-OP-J Posture/Palpation/Skin Start: 06/24/19 11:08 Freq: Status: Active Protocol: Document 06/24/19 11:08 AW (Rec: 06/24/19 12:23 AW [email or web address]) Posture Evaluation Comments Posture Comments Pt with costal angle >90 degrees and with mildly increased lumbar lordosis Skin Assessment Incisional Assessment Incision Appearance/Comments Pt has a 9 midline abdominal scar from costal angle to level of ASIS. Scar is well- healed and has good mobility. No adhesions noted. PT-OP-K Range of Motion Start: 06/24/19 11:08 Freq: Status: Active Protocol: Document 06/24/19 11:08 AW (Rec: 06/24/19 12:23 AW [email or web address]) Lumbar Spine Range of Motion Lumbar Spine Active Percentage Testing Position Standing Comments Lumbar spine ROM WNL all planes. Hip Goniometric Range of Motion Hip Active Hip ROM WFL Yes Hip ROM Limitations Comments Bilateral hip ROM WNL with no pain provocation PT-OP-L Special Tests Start: 06/24/19 11:08 Freq: Status: Active Protocol: Document 06/24/19 11:08 AW (Rec: 06/24/19 12:23 AW [email or web address]) Special Tests Lumbar Spine Special Tests Straight Leg Raise Test Results pt reports easier supine SLR with compression through pelvis at ASIS lvl Hip Special Tests Scour Test Test Results negative bilaterally PT-OP-M Strength Start: 06/24/19 11:08 Freq: Status: Active Protocol: Document 06/24/19 11:08 AW (Rec: 06/24/19 12:23 AW [email or web address]) Trunk Strength Trunk Manual Muscle Testing Comments In supine, pt able to lower BLE slowly from fully raised position with good control Hip Strength Hip Manual Muscle Testing Right Flexion (L2) 4+ Good+ Extension (S1) 4- Good- Abduction 4 Good Adduction 4- Good- External Rotation 4+ Good+ Internal Rotation 4+ Good+ Left Flexion (L2) 4+ Good+ Extension (S1) 4- Good- Abduction 4 Good Adduction 4- Good- External Rotation 4+ Good+ Internal Rotation 4+ Good+ PT-OP-Q Treatments Start: 06/24/19 11:08 Freq: Status: Active Protocol: Document 08/08/19 13:00 AMB (Rec: 08/08/19 16:30 AMB [email or web address]) Therapeutic Exercises Supine Exercises 3 Supine Exercise Name bugs Side bilateral Reps/Minutes 2x12 reps Comments improved breath control with fewer verbal cues Prone Exercises 1 Prone Exercise Name quadruped single arm flexion, kick back, bird dog Side bilateral Reps/Minutes 1x10 bilat each Comments VC/TC to avoid pelvic rotation ; progressed to kick back and bird dog Sitting Exercises welsh ball trunk flexion Sitting Exercise Name welsh ball trunk flexion pull down Resistance level 2 T band Equipment Used 65 cm ball Reps/Minutes 2x10 reps Comments T band anchored overhead welsh ball Sitting Exercise Name welsh ball marching with arm swing Side bilateral Equipment Used 65 cm ball Reps/Minutes 4 minutes Comments pt able to swing arms OH Manual Therapy Treatment Taping 1 Body Location kinesiotape over upper abdomen Comments 4 I strips, like for diastasis recti, basket weave PT-OP-T Assessment and Plan Start: 06/24/19 11:08 Freq: Status: Active Protocol: Document 08/08/19 13:00 AMB (Rec: 08/08/19 16:30 AMB [email or web address]) Physical Therapy Assessment Assessment Summary Assessment Pt initially felt that kinesiotape was helfpul for supporting upper abdominals. Better awareness of engaging pelvic floor today in comparison to 2 weeks ago. Physical Therapy Plan Next Visit Focus/Plan Next Note Type Treatment Note Next Visit Plan Continue strengthening, but also encourage pt in pelvic floor awareness with exercises . progress ther ex for hip strengthening, progress abdominal strengthening with functional movements such as lifting and carrying
--- NOTE | 2019-08-13 14:30 | PT.OTN ---
Current Diagnoses Personal history of other diseases of the digestive system (08/13/19) Other specified postprocedural states (08/13/19) Physical Therapy Treatment Note PT-OP-A Visit Information Start: 06/24/19 11:08 Freq: Status: Active Protocol: Document 08/13/19 13:45 SP (Rec: 08/13/19 14:46 SP [id number]) Out-Patient Physical Therapy Visit Information Visit Information Visit Type Treatment Note Visit Start Time 13:45 Visit Stop Time 14:30 Total Visit Minutes 45 Visit Number 12 Number of SAMPLE PULLER Visits 1 PT-OP-B Current Condition Start: 06/24/19 11:08 Freq: Status: Active Protocol: Document 06/24/19 11:08 AW (Rec: 06/24/19 12:23 AW [email or web address]) Current Condition History of Current Condition Onset Date two years Current Complaints abdominal weakness, low back pain, right posterior hip pain History of Current Condition Jada has had 8 abdominal surgeries over the past five years, including surgery for diverticulitis, ostomy takedown, x 1, and multiple ventral hernia repairs. Her last surgery was performed at [facility] in [place] at the end of January 2019. She no longer has any post-op precautions. She complains of RUQ abdominal cramping which occurs in sitting and with increased intra-abdominal pressure such as with sneezing. She also notes lack of midline abdominal sensation. 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 Robaxacet ( acetaminophen + muscle relaxant), rest, and stretching her abdomen decrease her symptoms. Sitting , reaching, lifting, and carrying make them worse. Prior Treatments and Tests No therapy outside of hospital setting Future Testing and Treatments Planned None identified Treatment Goals Patient/Caregiver Goals Pt would like to increase her confidence in engaging her trunk muscles to improve her ability to care for her children, lift, carry, and reach. 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 Current Functional Impairments (Reported) Functional Limitations- ADL's Difficulty carrying laundry up the stairs, lifting heavy pots from the back of the stove, lifting and carrying her children due to trunk weakness. Personal Factors Other Personal Factors That May Effect (-) Multiple abdominal Therapy/Recovery surgeries (+) Good spouse/family support (+) Previously active lifestyle (+) Motivation to return to PLOF. PT-OP-C Subjective Start: 06/24/19 11:08 Freq: Status: Active Protocol: Document 08/13/19 13:45 SP (Rec: 08/13/19 14:46 SP [id number]) OP-PT Subjective Patient Comments Patient Comments Pt reports hasn't done her exericses for a couple of days secondary to felt a stretch in upper abdominals after lifted a box OH onto a shelf. Had to put a heating pad on abdomen to assist discomfort. PT-OP-I Pelvic Floor Start: 06/24/19 11:08 Freq: Status: Active Protocol: Document 07/25/19 11:15 AMB (Rec: 07/25/19 12:57 AMB [email or web address]) Pelvic Floor Assessment Urine Leakage Size Small Leakage Cause Lifting Leaks Per Day infrequent Pelvic Clock Pelvic Clock Other no tenderness noted Prolapse Uterine Prolapse Grade 1 Prolapse Comments only visible with valsalva Perineal Descent Resting Absent Bearing Present Contraction Ability Voluntary Contraction Moderate Voluntary Relaxation Weak Manual Muscle Testing Left 2 Manual Muscle Testing Right 2 Manual Muscle Testing Anterior 3 Manual Muscle Testing Posterior 3 PT-OP-J Posture/Palpation/Skin Start: 06/24/19 11:08 Freq: Status: Active Protocol: Document 06/24/19 11:08 AW (Rec: 06/24/19 12:23 AW [email or web address]) Posture Evaluation Comments Posture Comments Pt with costal angle >90 degrees and with mildly increased lumbar lordosis Skin Assessment Incisional Assessment Incision Appearance/Comments Pt has a 9 midline abdominal scar from costal angle to level of ASIS. Scar is well- healed and has good mobility. No adhesions noted. PT-OP-K Range of Motion Start: 06/24/19 11:08 Freq: Status: Active Protocol: Document 06/24/19 11:08 AW (Rec: 06/24/19 12:23 AW [email or web address]) Lumbar Spine Range of Motion Lumbar Spine Active Percentage Testing Position Standing Comments Lumbar spine ROM WNL all planes. Hip Goniometric Range of Motion Hip Active Hip ROM WFL Yes Hip ROM Limitations Comments Bilateral hip ROM WNL with no pain provocation PT-OP-L Special Tests Start: 06/24/19 11:08 Freq: Status: Active Protocol: Document 06/24/19 11:08 AW (Rec: 06/24/19 12:23 AW [email or web address]) Special Tests Lumbar Spine Special Tests Straight Leg Raise Test Results pt reports easier supine SLR with compression through pelvis at ASIS lvl Hip Special Tests Scour Test Test Results negative bilaterally PT-OP-M Strength Start: 06/24/19 11:08 Freq: Status: Active Protocol: Document 06/24/19 11:08 AW (Rec: 06/24/19 12:23 AW [email or web address]) Trunk Strength Trunk Manual Muscle Testing Comments In supine, pt able to lower BLE slowly from fully raised position with good control Hip Strength Hip Manual Muscle Testing Right Flexion (L2) 4+ Good+ Extension (S1) 4- Good- Abduction 4 Good Adduction 4- Good- External Rotation 4+ Good+ Internal Rotation 4+ Good+ Left Flexion (L2) 4+ Good+ Extension (S1) 4- Good- Abduction 4 Good Adduction 4- Good- External Rotation 4+ Good+ Internal Rotation 4+ Good+ PT-OP-Q Treatments Start: 06/24/19 11:08 Freq: Status: Active Protocol: Document 08/13/19 13:45 SP (Rec: 08/13/19 14:46 SP [id number]) Therapeutic Exercises Supine Exercises 3 Supine Exercise Name bugs Side bilateral Reps/Minutes 2x12 reps Comments improved breath control with fewer verbal cues bridge Supine Exercise Name single leg bridge Side bilateral Reps/Minutes 2x10 reps each side Comments fewer cues for stable pelvis Prone Exercises 1 Prone Exercise Name quadruped single arm flexion, kick back, bird dog Side bilateral Reps/Minutes 1x10 bilat each Comments VC/TC to avoid pelvic rotation ; progressed to kick back and bird dog Sidelying Exercises side plank Sidelying Exercise Name off knees Side bilateral Reps/Minutes 10 sec, 20 sec x2, 30sec Comments cued for scapular, LS alignment for proper form Sitting Exercises jordanian ball pull down Sitting Exercise Name reclined pull down Side bilateral Resistance TB #1 x10, #2 2x10 Equipment Used jordanian ball Comments cued for sitting front of SB and recline with PPT and chest lift alignm. jordanian ball rotation Side bilateral Resistance #3 Reps/Minutes 3x10 Comments cued PPT, recline, chest lift Other Exercises 1/2 kneel rotation Other Exercise Name Chop trunk rotation Side bilateral Equipment Used TB #2 Reps/Minutes 2x10 Manual Therapy Treatment Taping 1 Body Location kinesiotape over upper abdomen Treatment Focus abdominal support Type of Tape Kinesio Tape Skin Inspection normal flesh color Comments Octapus (4 small strips and head anchor over lower ribcage ) like for diastasis recti, basket weave PT-OP-T Assessment and Plan Start: 06/24/19 11:08 Freq: Status: Active Protocol: Document 08/13/19 13:45 SP (Rec: 08/13/19 14:46 SP [id number]) Physical Therapy Assessment Goals 3 Impairment Pt has no HEP Short Term Goal (STG) Pt will be independent with HEP for support in therapy services provided in clinic 07/17/19 MET STG Duration 07/22/19 2 Impairment abdominal cramping/pain Short Term Goal (STG) Pt will report use of robaxacet <2 times per week 07/17/19 MET STG Duration 07/22/19 Jail Goal (LTG) Pt will report use of robaxacet 1 time per week or less LTG Duration 08/19/19 1 Impairment impaired lifting Short Term Goal (STG) Pt will carry full load of laundry up stairs with good trunk control/stability and without pain 07/17/19 PARTIALLY MET STG Duration 07/22/19 Jail Goal (LTG) Pt will lift one of her children with good trunk control and without pain LTG Duration 08/19/19 Assessment Summary Assessment Reviewed patient's HEP: changed positioning during pull down and trunk rotation to increase challenge and target upper abdominals with postive feedback results. Cued for PPT/ neutral LS awareness and tolerance to recline with L1 pull down. I feel a abdominal quiver that haven't felt yet, so nice to access my upper abdominal muscles again . Physical Therapy Plan Frequency and Duration Frequency of Treatment 1-2x/week Duration of Treatment 8 weeks Plan of Care Start Date 06/24/19 Plan of Care End Date 08/19/19 Therapeutic Interventions Therapeutic Interventions Gait Training,Home Exercise Program,Joint Mobilizations, Manual Therapy,Neuromuscular Re-education,Patient/Caregiver Education,Self-Care/Home Management,Sensory Integration ,Soft Tissue Mobilization, Taping,Therapeutic Activities, Therapeutic Exercises Modalities Biofeedback,Cold Pack/Ice Massage,Hot Packs Next Visit Focus/Plan Next Note Type Treatment Note Next Visit Plan Assess added 1/2 knee clops, reclined retro SB pull downs, and side planks. Add: OH reaching with resistance to support lifting objects OH on to shelf. Continue POC: Continue strengthening, but also encourage pt in pelvic floor awareness with exercises. progress ther ex for hip strengthening, progress abdominal strengthening with functional movements such as lifting and carrying
--- NOTE | 2019-08-26 12:29 | PT-OP ANOTE ---
Pt did not show today's appt. Left a message about missing today's appt and cancelled appt on 08/20/19. Informed her she has a follow up appt with her PT 08/28/19 and will up date POC at that time. Please call 24hr in advance if need to cancel.
--- NOTE | 2019-08-28 14:03 | PT.OTN ---
Current Diagnoses Personal history of other diseases of the digestive system (08/28/19) Other specified postprocedural states (08/28/19) Physical Therapy Treatment Note PT-OP-A Visit Information Start: 06/24/19 11:08 Freq: Status: Active Protocol: Document 08/28/19 12:42 AW (Rec: 08/28/19 14:02 AW [email or web address]) Out-Patient Physical Therapy Visit Information Visit Information Visit Type Treatment Note Visit Start Time 11:15 Visit Stop Time 11:57 Total Visit Minutes 42 Visit Number 13 Number of CHURNER Visits 1 PT-OP-B Current Condition Start: 06/24/19 11:08 Freq: Status: Active Protocol: Document 06/24/19 11:08 AW (Rec: 06/24/19 12:23 AW [email or web address]) Current Condition History of Current Condition Onset Date two years Current Complaints abdominal weakness, low back pain, right posterior hip pain History of Current Condition Jada has had 8 abdominal surgeries over the past five years, including surgery for diverticulitis, ostomy takedown, x 1, and multiple ventral hernia repairs. Her last surgery was performed at [facility] in [place] at the end of January 2019. She no longer has any post-op precautions. She complains of RUQ abdominal cramping which occurs in sitting and with increased intra-abdominal pressure such as with sneezing. She also notes lack of midline abdominal sensation. 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 Robaxacet ( acetaminophen + muscle relaxant), rest, and stretching her abdomen decrease her symptoms. Sitting , reaching, lifting, and carrying make them worse. Prior Treatments and Tests No therapy outside of hospital setting Future Testing and Treatments Planned None identified Treatment Goals Patient/Caregiver Goals Pt would like to increase her confidence in engaging her trunk muscles to improve her ability to care for her children, lift, carry, and reach. 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 Current Functional Impairments (Reported) Functional Limitations- ADL's Difficulty carrying laundry up the stairs, lifting heavy pots from the back of the stove, lifting and carrying her children due to trunk weakness. Personal Factors Other Personal Factors That May Effect (-) Multiple abdominal Therapy/Recovery surgeries (+) Good spouse/family support (+) Previously active lifestyle (+) Motivation to return to PLOF. PT-OP-C Subjective Start: 06/24/19 11:08 Freq: Status: Active Protocol: Document 08/28/19 12:42 AW (Rec: 08/28/19 14:02 AW [email or web address]) OP-PT Subjective Patient Comments Patient Comments Pt has been out of town but wants to extend her plan of care a few more weeks. She is just now starting to feel her upper abdominal muscles engage with lifting and stabilization. PT-OP-I Pelvic Floor Start: 06/24/19 11:08 Freq: Status: Active Protocol: Document 07/25/19 11:15 AMB (Rec: 07/25/19 12:57 AMB [email or web address]) Pelvic Floor Assessment Urine Leakage Size Small Leakage Cause Lifting Leaks Per Day infrequent Pelvic Clock Pelvic Clock Other no tenderness noted Prolapse Uterine Prolapse Grade 1 Prolapse Comments only visible with valsalva Perineal Descent Resting Absent Bearing Present Contraction Ability Voluntary Contraction Moderate Voluntary Relaxation Weak Manual Muscle Testing Left 2 Manual Muscle Testing Right 2 Manual Muscle Testing Anterior 3 Manual Muscle Testing Posterior 3 PT-OP-J Posture/Palpation/Skin Start: 06/24/19 11:08 Freq: Status: Active Protocol: Document 06/24/19 11:08 AW (Rec: 06/24/19 12:23 AW [email or web address]) Posture Evaluation Comments Posture Comments Pt with costal angle >90 degrees and with mildly increased lumbar lordosis Skin Assessment Incisional Assessment Incision Appearance/Comments Pt has a 9 midline abdominal scar from costal angle to level of ASIS. Scar is well- healed and has good mobility. No adhesions noted. PT-OP-K Range of Motion Start: 06/24/19 11:08 Freq: Status: Active Protocol: Document 06/24/19 11:08 AW (Rec: 06/24/19 12:23 AW [email or web address]) Lumbar Spine Range of Motion Lumbar Spine Active Percentage Testing Position Standing Comments Lumbar spine ROM WNL all planes. Hip Goniometric Range of Motion Hip Active Hip ROM WFL Yes Hip ROM Limitations Comments Bilateral hip ROM WNL with no pain provocation PT-OP-L Special Tests Start: 06/24/19 11:08 Freq: Status: Active Protocol: Document 06/24/19 11:08 AW (Rec: 06/24/19 12:23 AW [email or web address]) Special Tests Lumbar Spine Special Tests Straight Leg Raise Test Results pt reports easier supine SLR with compression through pelvis at ASIS lvl Hip Special Tests Scour Test Test Results negative bilaterally PT-OP-M Strength Start: 06/24/19 11:08 Freq: Status: Active Protocol: Document 06/24/19 11:08 AW (Rec: 06/24/19 12:23 AW [email or web address]) Trunk Strength Trunk Manual Muscle Testing Comments In supine, pt able to lower BLE slowly from fully raised position with good control Hip Strength Hip Manual Muscle Testing Right Flexion (L2) 4+ Good+ Extension (S1) 4- Good- Abduction 4 Good Adduction 4- Good- External Rotation 4+ Good+ Internal Rotation 4+ Good+ Left Flexion (L2) 4+ Good+ Extension (S1) 4- Good- Abduction 4 Good Adduction 4- Good- External Rotation 4+ Good+ Internal Rotation 4+ Good+ PT-OP-Q Treatments Start: 06/24/19 11:08 Freq: Status: Active Protocol: Document 08/28/19 12:42 AW (Rec: 08/28/19 14:02 AW [email or web address]) Therapeutic Exercises Supine Exercises bridge Supine Exercise Name single leg bridge Side bilateral Reps/Minutes 1x10 reps each side Comments min cues for stable pelvis Sitting Exercises tristanian ball trunk flexion Sitting Exercise Name tristanian ball trunk flexion pull down Resistance level 3 T band Equipment Used 65 cm ball Reps/Minutes 2x10 reps Comments T band anchored overhead seated abdominal press into tristanian ball Sitting Exercise Name seated abdominal press into tristanian ball Equipment Used sitting on 65 cm ball; 45 cm ball on lap Reps/Minutes 2x10 reps Comments cues to avoid shoulder elevation Standing Exercises 1 Standing Exercise Name anti-rotation Side bilateral Resistance level 3 Equipment Used T band Reps/Minutes 2x10 reps Comments cues for shoulders over hips hip hinge Standing Exercise Name hip hinge/mini squat with overhead lift Side bilateral Resistance 6.6# Equipment Used thera ball Reps/Minutes 2x15 reps Comments cues for neutral spine, TA engagement Therapeutic Activity Therapeutic Activity 1 Name standing abdominal wall shortening with box lift Reps/Minutes 15 minutes Comments Crate with weights set on 17 chair and then on floor. Cues for elbows tucked to ribs and abdominal engagement. Cues for hip hinge, glute and abdominal engagement. Progressed to walking short laps with weight. Manual Therapy Treatment Taping 1 Body Location kinesiotape over upper abdomen Treatment Focus abdominal support Type of Tape Kinesio Tape Skin Inspection normal flesh color Comments 4 I strips anchored at lower ribcage and descending diagonally with tension, basket weave PT-OP-T Assessment and Plan Start: 06/24/19 11:08 Freq: Status: Active Protocol: Document 08/28/19 12:42 AW (Rec: 08/28/19 14:02 AW [email or web address]) Physical Therapy Assessment Goals 5 Impairment Pt does not tolerate pressure on her abdomen Workers Compensation Consultant Goal (LTG) Pt will tolerate 20# pressure on abdomen for ability to participate in spear fishing during 2019 LTG Duration 10/09/19 4 Impairment Pt unable to lift overhead without RUQ pain Short Term Goal (STG) Pt will lift 10# overhead with no report of increased abdominal pain STG Duration 09/16/19 Care Home Goal (LTG) Pt will lift 15# overhead with no report of increased abdominal pain LTG Duration 10/09/19 3 Impairment Pt with limited HEP Workers Compensation Consultant Goal (LTG) Pt will be independent with maintenance HEP LTG Duration 10/09/19 2 Impairment abdominal cramping/pain Short Term Goal (STG) Pt will report use of robaxacet <2 times per week 07/17/19 MET STG Duration 07/22/19 Workers Compensation Consultant Goal (LTG) Pt will report use of robaxacet 1 time per week or less 08/28/19 MET LTG Duration 08/19/19 1 Impairment impaired lifting Short Term Goal (STG) Pt will carry full load of laundry up stairs with good trunk control/stability and without pain 07/17/19 PARTIALLY MET STG Duration 07/22/19 Care Home Goal (LTG) Pt will lift one of her children with good trunk control and without pain 08/28/19 NOT MET - but pt has now met STG with ability to carry full laundry basket up stairs with good control and without pain LTG Duration 08/19/19 Progress Towards Goals Progress Towards Goals Progressing Toward Goals Assessment Summary Assessment Pt reports improved sense of upper abdominal engagement while lifting. She has met or partially met goals of previous plan of care. Goals updated today to include lifting overhead. She will benefit from continued PT to progress global abdominal strengthening and to enhance her ability to participate in household duties and recreational activities. Physical Therapy Plan Frequency and Duration Frequency of Treatment 1x/Week Duration of Treatment 6 weeks Plan of Care Start Date 08/28/19 Plan of Care End Date 10/09/19 Therapeutic Interventions Therapeutic Interventions Gait Training,Home Exercise Program,Joint Mobilizations, Manual Therapy,Neuromuscular Re-education,Patient/Caregiver Education,Self-Care/Home Management,Sensory Integration ,Soft Tissue Mobilization, Taping,Therapeutic Activities, Therapeutic Exercises Modalities Biofeedback,Cold Pack/Ice Massage,Hot Packs Next Visit Focus/Plan Next Note Type Treatment Note Next Visit Plan Continue to increase challenge in lifting, carrying, overhead lift
--- NOTE | 2019-08-28 14:06 | PT.OPPOC ---
Current Diagnoses Personal history of other diseases of the digestive system (08/28/19) Other specified postprocedural states (08/28/19) Visit Care Team Role Provider Type Jaquelin Coe DO Primary Care Provider Physician Specialty: Family Practice Address: [address] [place] [address], [facility] [place], [address] Email: [email or web address] Giselle Thao MD Attending Provider Non-Staff Specialty: General Surgery Address: [address] [place] [address], [address], [place], [address] Email: Plan Of Care PT-OP-T Assessment and Plan Start: 06/24/19 11:08 Freq: Status: Active Protocol: Document 08/28/19 12:42 AW (Rec: 08/28/19 14:02 AW [email or web address]) Physical Therapy Assessment Goals 5 Impairment Pt does not tolerate pressure on her abdomen Snf Goal (LTG) Pt will tolerate 20# pressure on abdomen for ability to participate in spear fishing during 2019 LTG Duration 10/09/19 4 Impairment Pt unable to lift overhead without RUQ pain Short Term Goal (STG) Pt will lift 10# overhead with no report of increased abdominal pain STG Duration 09/16/19 Insulation Nozzleman Goal (LTG) Pt will lift 15# overhead with no report of increased abdominal pain LTG Duration 10/09/19 3 Impairment Pt with limited HEP Insulation Nozzleman Goal (LTG) Pt will be independent with maintenance HEP LTG Duration 10/09/19 2 Impairment abdominal cramping/pain Short Term Goal (STG) Pt will report use of robaxacet <2 times per week 07/17/19 MET STG Duration 07/22/19 Snf Goal (LTG) Pt will report use of robaxacet 1 time per week or less 08/28/19 MET LTG Duration 08/19/19 1 Impairment impaired lifting Short Term Goal (STG) Pt will carry full load of laundry up stairs with good trunk control/stability and without pain 07/17/19 PARTIALLY MET STG Duration 07/22/19 Snf Goal (LTG) Pt will lift one of her children with good trunk control and without pain 08/28/19 NOT MET - but pt has now met STG with ability to carry full laundry basket up stairs with good control and without pain LTG Duration 08/19/19 Progress Towards Goals Progress Towards Goals Progressing Toward Goals Assessment Summary Assessment Pt reports improved sense of upper abdominal engagement while lifting. She has met or partially met goals of previous plan of care. Goals updated today to include lifting overhead. She will benefit from continued PT to progress global abdominal strengthening and to enhance her ability to participate in household duties and recreational activities. Physical Therapy Plan Frequency and Duration Frequency of Treatment 1x/Week Duration of Treatment 6 weeks Plan of Care Start Date 08/28/19 Plan of Care End Date 10/09/19 Therapeutic Interventions Therapeutic Interventions Gait Training,Home Exercise Program,Joint Mobilizations, Manual Therapy,Neuromuscular Re-education,Patient/Caregiver Education,Self-Care/Home Management,Sensory Integration ,Soft Tissue Mobilization, Taping,Therapeutic Activities, Therapeutic Exercises Modalities Biofeedback,Cold Pack/Ice Massage,Hot Packs Next Visit Focus/Plan Next Note Type Treatment Note Next Visit Plan Continue to increase challenge in lifting, carrying, overhead lift Plan of Care Dates Plan of Care Start Date 08/28/19 Plan of Care End Date 10/09/19
--- NOTE | 2019-09-04 14:26 | PT.OTN ---
Current Diagnoses Personal history of other diseases of the digestive system (09/04/19) Other specified postprocedural states (09/04/19) Physical Therapy Treatment Note PT-OP-A Visit Information Start: 06/24/19 11:08 Freq: Status: Active Protocol: Document 09/04/19 14:11 AW (Rec: 09/04/19 14:26 AW [email or web address]) Out-Patient Physical Therapy Visit Information Visit Information Visit Type Treatment Note Visit Start Time 11:15 Visit Stop Time 12:00 Total Visit Minutes 45 Visit Number 14 Number of INFORMATION TECHNOLOGY DATA ANALYST Visits 0 PT-OP-B Current Condition Start: 06/24/19 11:08 Freq: Status: Active Protocol: Document 06/24/19 11:08 AW (Rec: 06/24/19 12:23 AW [email or web address]) Current Condition History of Current Condition Onset Date two years Current Complaints abdominal weakness, low back pain, right posterior hip pain History of Current Condition Jada has had 8 abdominal surgeries over the past five years, including surgery for diverticulitis, ostomy takedown, x 1, and multiple ventral hernia repairs. Her last surgery was performed at [facility] in [place] at the end of January 2019. She no longer has any post-op precautions. She complains of RUQ abdominal cramping which occurs in sitting and with increased intra-abdominal pressure such as with sneezing. She also notes lack of midline abdominal sensation. 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 Robaxacet ( acetaminophen + muscle relaxant), rest, and stretching her abdomen decrease her symptoms. Sitting , reaching, lifting, and carrying make them worse. Prior Treatments and Tests No therapy outside of hospital setting Future Testing and Treatments Planned None identified Treatment Goals Patient/Caregiver Goals Pt would like to increase her confidence in engaging her trunk muscles to improve her ability to care for her children, lift, carry, and reach. 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 Current Functional Impairments (Reported) Functional Limitations- ADL's Difficulty carrying laundry up the stairs, lifting heavy pots from the back of the stove, lifting and carrying her children due to trunk weakness. Personal Factors Other Personal Factors That May Effect (-) Multiple abdominal Therapy/Recovery surgeries (+) Good spouse/family support (+) Previously active lifestyle (+) Motivation to return to PLOF. PT-OP-C Subjective Start: 06/24/19 11:08 Freq: Status: Active Protocol: Document 09/04/19 14:11 AW (Rec: 09/04/19 14:26 AW [email or web address]) OP-PT Subjective Patient Comments Patient Comments Pt feels the taping is helping her abdominal engagement during daily tasks. She was able to hold a TV over her head for installation yesterday without much abdominal pain PT-OP-I Pelvic Floor Start: 06/24/19 11:08 Freq: Status: Active Protocol: Document 07/25/19 11:15 AMB (Rec: 07/25/19 12:57 AMB [email or web address]) Pelvic Floor Assessment Urine Leakage Size Small Leakage Cause Lifting Leaks Per Day infrequent Pelvic Clock Pelvic Clock Other no tenderness noted Prolapse Uterine Prolapse Grade 1 Prolapse Comments only visible with valsalva Perineal Descent Resting Absent Bearing Present Contraction Ability Voluntary Contraction Moderate Voluntary Relaxation Weak Manual Muscle Testing Left 2 Manual Muscle Testing Right 2 Manual Muscle Testing Anterior 3 Manual Muscle Testing Posterior 3 PT-OP-J Posture/Palpation/Skin Start: 06/24/19 11:08 Freq: Status: Active Protocol: Document 06/24/19 11:08 AW (Rec: 06/24/19 12:23 AW [email or web address]) Posture Evaluation Comments Posture Comments Pt with costal angle >90 degrees and with mildly increased lumbar lordosis Skin Assessment Incisional Assessment Incision Appearance/Comments Pt has a 9 midline abdominal scar from costal angle to level of ASIS. Scar is well- healed and has good mobility. No adhesions noted. PT-OP-K Range of Motion Start: 06/24/19 11:08 Freq: Status: Active Protocol: Document 06/24/19 11:08 AW (Rec: 06/24/19 12:23 AW [email or web address]) Lumbar Spine Range of Motion Lumbar Spine Active Percentage Testing Position Standing Comments Lumbar spine ROM WNL all planes. Hip Goniometric Range of Motion Hip Active Hip ROM WFL Yes Hip ROM Limitations Comments Bilateral hip ROM WNL with no pain provocation PT-OP-L Special Tests Start: 06/24/19 11:08 Freq: Status: Active Protocol: Document 06/24/19 11:08 AW (Rec: 06/24/19 12:23 AW [email or web address]) Special Tests Lumbar Spine Special Tests Straight Leg Raise Test Results pt reports easier supine SLR with compression through pelvis at ASIS lvl Hip Special Tests Scour Test Test Results negative bilaterally PT-OP-M Strength Start: 06/24/19 11:08 Freq: Status: Active Protocol: Document 06/24/19 11:08 AW (Rec: 06/24/19 12:23 AW [email or web address]) Trunk Strength Trunk Manual Muscle Testing Comments In supine, pt able to lower BLE slowly from fully raised position with good control Hip Strength Hip Manual Muscle Testing Right Flexion (L2) 4+ Good+ Extension (S1) 4- Good- Abduction 4 Good Adduction 4- Good- External Rotation 4+ Good+ Internal Rotation 4+ Good+ Left Flexion (L2) 4+ Good+ Extension (S1) 4- Good- Abduction 4 Good Adduction 4- Good- External Rotation 4+ Good+ Internal Rotation 4+ Good+ PT-OP-Q Treatments Start: 06/24/19 11:08 Freq: Status: Active Protocol: Document 09/04/19 14:11 AW (Rec: 09/04/19 14:26 AW [email or web address]) Gym Equipment Sport Cord 1 Exercise Details fwd/bwd/sidways Cord/Resistance red Reps/Duration 3 laps each direction Comments Red band was too challenging on last attempt, but pt is able to handle it today. Therapeutic Exercises Prone Exercises praying mantis Prone Exercise Name praying mantis Equipment Used 65 cm ball Reps/Minutes 2 x 15 reps Comments forearms on ball, roll out and back from tall kneeling with control plank Prone Exercise Name plank from toes/forearms Equipment Used 2 mat Reps/Minutes 15 sec x 5 Comments forearms on mat, feet off mat Sidelying Exercises side plank Sidelying Exercise Name off knees Side bilateral Reps/Minutes 20 sec, 30 sec each side Comments cued for scapular, LS alignment for proper form Sitting Exercises eccentric abdominal lean back Sitting Exercise Name eccentric abdominal lean back - on ball with resistance Resistance level 2 T band Equipment Used 65 cm ball Reps/Minutes 2x10 reps Comments T band anchored under feet Standing Exercises resisted hip extension Standing Exercise Name resisted hip extension - backward walking Side bilateral Resistance green loop Reps/Minutes 20 feet x 4 1 Standing Exercise Name anti-rotation Side bilateral Resistance level 3 Equipment Used T band Reps/Minutes 2x10 reps Comments cues for shoulders over hips Manual Therapy Treatment Taping 1 Body Location kinesiotape over upper abdomen Treatment Focus abdominal support Type of Tape Kinesio Tape Skin Inspection normal flesh color Comments 4 I strips anchored at lower ribcage and descending diagonally with tension, basket weave PT-OP-T Assessment and Plan Start: 06/24/19 11:08 Freq: Status: Active Protocol: Document 09/04/19 14:11 AW (Rec: 09/04/19 14:26 AW [email or web address]) Physical Therapy Assessment Goals 5 Impairment Pt does not tolerate pressure on her abdomen Artificial Plastic Eye Maker Goal (LTG) Pt will tolerate 20# pressure on abdomen for ability to participate in spear fishing during 2019 LTG Duration 10/09/19 4 Impairment Pt unable to lift overhead without RUQ pain Short Term Goal (STG) Pt will lift 10# overhead with no report of increased abdominal pain STG Duration 09/16/19 Detention Goal (LTG) Pt will lift 15# overhead with no report of increased abdominal pain LTG Duration 10/09/19 3 Impairment Pt with limited HEP Artificial Plastic Eye Maker Goal (LTG) Pt will be independent with maintenance HEP LTG Duration 10/09/19 2 Impairment abdominal cramping/pain Short Term Goal (STG) Pt will report use of robaxacet <2 times per week 07/17/19 MET STG Duration 07/22/19 Detention Goal (LTG) Pt will report use of robaxacet 1 time per week or less 08/28/19 MET LTG Duration 08/19/19 1 Impairment impaired lifting Short Term Goal (STG) Pt will carry full load of laundry up stairs with good trunk control/stability and without pain 07/17/19 PARTIALLY MET STG Duration 07/22/19 Detention Goal (LTG) Pt will lift one of her children with good trunk control and without pain 08/28/19 NOT MET - but pt has now met STG with ability to carry full laundry basket up stairs with good control and without pain LTG Duration 08/19/19 Progress Towards Goals Progress Towards Goals Progressing Toward Goals Assessment Summary Assessment Pt shows good effort with therapy and is progressing toward functional goals as evidenced by ability to lift overhead yesterday with good control and no increase in pain. Physical Therapy Plan Frequency and Duration Frequency of Treatment 1x/Week Duration of Treatment 6 weeks Plan of Care Start Date 08/28/19 Plan of Care End Date 10/09/19 Therapeutic Interventions Therapeutic Interventions Gait Training,Home Exercise Program,Joint Mobilizations, Manual Therapy,Neuromuscular Re-education,Patient/Caregiver Education,Self-Care/Home Management,Sensory Integration ,Soft Tissue Mobilization, Taping,Therapeutic Activities, Therapeutic Exercises Modalities Biofeedback,Cold Pack/Ice Massage,Hot Packs Next Visit Focus/Plan Next Note Type Treatment Note Next Visit Plan Continue to increase challenge in lifting, carrying, overhead lift
--- NOTE | 2019-09-11 11:25 | PT.OTN ---
Current Diagnoses Personal history of other diseases of the digestive system (09/11/19) Other specified postprocedural states (09/11/19) Physical Therapy Treatment Note PT-OP-A Visit Information Start: 06/24/19 11:08 Freq: Status: Active Protocol: Document 09/11/19 10:40 SP (Rec: 09/11/19 11:35 SP [id number]) Out-Patient Physical Therapy Visit Information Visit Information Visit Type Treatment Note Visit Start Time 10:40 Visit Stop Time 11:25 Total Visit Minutes 45 Visit Number 15 Number of GINNER HELPER Visits 1 PT-OP-B Current Condition Start: 06/24/19 11:08 Freq: Status: Active Protocol: Document 06/24/19 11:08 AW (Rec: 06/24/19 12:23 AW [email or web address]) Current Condition History of Current Condition Onset Date two years Current Complaints abdominal weakness, low back pain, right posterior hip pain History of Current Condition Jada has had 8 abdominal surgeries over the past five years, including surgery for diverticulitis, ostomy takedown, x 1, and multiple ventral hernia repairs. Her last surgery was performed at [facility] in [place] at the end of January 2019. She no longer has any post-op precautions. She complains of RUQ abdominal cramping which occurs in sitting and with increased intra-abdominal pressure such as with sneezing. She also notes lack of midline abdominal sensation. 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 Robaxacet ( acetaminophen + muscle relaxant), rest, and stretching her abdomen decrease her symptoms. Sitting , reaching, lifting, and carrying make them worse. Prior Treatments and Tests No therapy outside of hospital setting Future Testing and Treatments Planned None identified Treatment Goals Patient/Caregiver Goals Pt would like to increase her confidence in engaging her trunk muscles to improve her ability to care for her children, lift, carry, and reach. 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 Current Functional Impairments (Reported) Functional Limitations- ADL's Difficulty carrying laundry up the stairs, lifting heavy pots from the back of the stove, lifting and carrying her children due to trunk weakness. Personal Factors Other Personal Factors That May Effect (-) Multiple abdominal Therapy/Recovery surgeries (+) Good spouse/family support (+) Previously active lifestyle (+) Motivation to return to PLOF. PT-OP-C Subjective Start: 06/24/19 11:08 Freq: Status: Active Protocol: Document 09/11/19 10:40 SP (Rec: 09/11/19 11:35 SP [id number]) OP-PT Subjective Patient Comments Patient Comments Pt reported LB was in alot pain yesterday after helped shovel gravel in driveway. Had to take pain meds, hot pad, essential oil to assist decreased pain with mod results. Today 3/10 but didn't think needed to take any meds for assist. Pt requested reapply taping for abdominal support, helps. PT-OP-I Pelvic Floor Start: 06/24/19 11:08 Freq: Status: Active Protocol: Document 07/25/19 11:15 AMB (Rec: 07/25/19 12:57 AMB [email or web address]) Pelvic Floor Assessment Urine Leakage Size Small Leakage Cause Lifting Leaks Per Day infrequent Pelvic Clock Pelvic Clock Other no tenderness noted Prolapse Uterine Prolapse Grade 1 Prolapse Comments only visible with valsalva Perineal Descent Resting Absent Bearing Present Contraction Ability Voluntary Contraction Moderate Voluntary Relaxation Weak Manual Muscle Testing Left 2 Manual Muscle Testing Right 2 Manual Muscle Testing Anterior 3 Manual Muscle Testing Posterior 3 PT-OP-J Posture/Palpation/Skin Start: 06/24/19 11:08 Freq: Status: Active Protocol: Document 06/24/19 11:08 AW (Rec: 06/24/19 12:23 AW [email or web address]) Posture Evaluation Comments Posture Comments Pt with costal angle >90 degrees and with mildly increased lumbar lordosis Skin Assessment Incisional Assessment Incision Appearance/Comments Pt has a 9 midline abdominal scar from costal angle to level of ASIS. Scar is well- healed and has good mobility. No adhesions noted. PT-OP-K Range of Motion Start: 06/24/19 11:08 Freq: Status: Active Protocol: Document 06/24/19 11:08 AW (Rec: 06/24/19 12:23 AW [email or web address]) Lumbar Spine Range of Motion Lumbar Spine Active Percentage Testing Position Standing Comments Lumbar spine ROM WNL all planes. Hip Goniometric Range of Motion Hip Active Hip ROM WFL Yes Hip ROM Limitations Comments Bilateral hip ROM WNL with no pain provocation PT-OP-L Special Tests Start: 06/24/19 11:08 Freq: Status: Active Protocol: Document 06/24/19 11:08 AW (Rec: 06/24/19 12:23 AW [email or web address]) Special Tests Lumbar Spine Special Tests Straight Leg Raise Test Results pt reports easier supine SLR with compression through pelvis at ASIS lvl Hip Special Tests Scour Test Test Results negative bilaterally PT-OP-M Strength Start: 06/24/19 11:08 Freq: Status: Active Protocol: Document 06/24/19 11:08 AW (Rec: 06/24/19 12:23 AW [email or web address]) Trunk Strength Trunk Manual Muscle Testing Comments In supine, pt able to lower BLE slowly from fully raised position with good control Hip Strength Hip Manual Muscle Testing Right Flexion (L2) 4+ Good+ Extension (S1) 4- Good- Abduction 4 Good Adduction 4- Good- External Rotation 4+ Good+ Internal Rotation 4+ Good+ Left Flexion (L2) 4+ Good+ Extension (S1) 4- Good- Abduction 4 Good Adduction 4- Good- External Rotation 4+ Good+ Internal Rotation 4+ Good+ PT-OP-Q Treatments Start: 06/24/19 11:08 Freq: Status: Active Protocol: Document 09/11/19 10:40 SP (Rec: 09/11/19 11:35 SP [id number]) Gym Equipment Sport Cord 1 Exercise Details fwd/bwd/sidways Cord/Resistance red Reps/Duration 3 laps ( 3 steps ) of 5 reps each direction Comments Red band was too challenging on last attempt, but pt is able to handle it today. Therapeutic Exercises Sidelying Exercises side plank Sidelying Exercise Name off knees Side bilateral Reps/Minutes 30 sec, 60 sec each side Comments cued for scapular, LS alignment for proper form Sitting Exercises montserratian ball pull down Sitting Exercise Name reclined pull down Side bilateral Resistance TB #1 x10, #2 2x10 Equipment Used montserratian ball Comments cued for sitting front of SB and recline with PPT and chest lift alignm. Standing Exercises lift squat to OH raise Side bilateral Resistance 7# Db Reps/Minutes 2x5 Comments cued for neutral spine and knees behind toes Manual Therapy Treatment Taping 1 Body Location kinesiotape over upper abdomen Treatment Focus abdominal support Type of Tape Kinesio Tape Skin Inspection normal flesh color Comments 4 I strips anchored at lower ribcage and descending diagonally with tension, basket weave PT-OP-T Assessment and Plan Start: 06/24/19 11:08 Freq: Status: Active Protocol: Document 09/11/19 10:40 SP (Rec: 09/11/19 11:35 SP [id number]) Physical Therapy Assessment Goals 5 Impairment Pt does not tolerate pressure on her abdomen Half-Way Goal (LTG) Pt will tolerate 20# pressure on abdomen for ability to participate in spear fishing during 2019 LTG Duration 10/09/19 4 Impairment Pt unable to lift overhead without RUQ pain Short Term Goal (STG) Pt will lift 10# overhead with no report of increased abdominal pain STG Duration 09/16/19 Half-Way Goal (LTG) Pt will lift 15# overhead with no report of increased abdominal pain LTG Duration 10/09/19 3 Impairment Pt with limited HEP Half-Way Goal (LTG) Pt will be independent with maintenance HEP LTG Duration 10/09/19 2 Impairment abdominal cramping/pain Short Term Goal (STG) Pt will report use of robaxacet <2 times per week 07/17/19 MET STG Duration 07/22/19 Half-Way Goal (LTG) Pt will report use of robaxacet 1 time per week or less 08/28/19 MET LTG Duration 08/19/19 1 Impairment impaired lifting Short Term Goal (STG) Pt will carry full load of laundry up stairs with good trunk control/stability and without pain 07/17/19 PARTIALLY MET STG Duration 07/22/19 Hadoop Application Developer Goal (LTG) Pt will lift one of her children with good trunk control and without pain 08/28/19 NOT MET - but pt has now met STG with ability to carry full laundry basket up stairs with good control and without pain LTG Duration 08/19/19 Assessment Summary Assessment Pt worked hard during ther ex, cued for slow controlled eccentric stepping with PPT awareness for proper core facilitation and reclined sitting pull down review today . Pt was able to hold her plank up to 60 sec today with occasional cued for proper from to decrease LB recruitment with positive results. Added lift squat to OH raise 7# DB with no adverse affects to assimulate lifting activities at home. Pt reported no pain end of tx. Physical Therapy Plan Frequency and Duration Frequency of Treatment 1x/Week Duration of Treatment 6 weeks Plan of Care Start Date 08/28/19 Plan of Care End Date 10/09/19 Therapeutic Interventions Therapeutic Interventions Gait Training,Home Exercise Program,Joint Mobilizations, Manual Therapy,Neuromuscular Re-education,Patient/Caregiver Education,Self-Care/Home Management,Sensory Integration ,Soft Tissue Mobilization, Taping,Therapeutic Activities, Therapeutic Exercises Modalities Biofeedback,Cold Pack/Ice Massage,Hot Packs Next Visit Focus/Plan Next Note Type Treatment Note Next Visit Plan Assess lift to OH raise added last tx. Next tx add chops/reverse chops to assimulate shoveling performing at home strengthening support. Continue to increase challenge in lifting, carrying, overhead lift
--- NOTE | 2019-09-24 10:30 | PT.OTN ---
Current Diagnoses Personal history of other diseases of the digestive system (09/24/19) Other specified postprocedural states (09/24/19) Physical Therapy Treatment Note PT-OP-A Visit Information Start: 06/24/19 11:08 Freq: Status: Active Protocol: Document 09/24/19 09:52 SP (Rec: 09/24/19 10:32 SP [id number]) Out-Patient Physical Therapy Visit Information Visit Information Visit Type Treatment Note Visit Start Time 09:52 Visit Stop Time 10:30 Total Visit Minutes 38 Visit Number 16 Number of SURGICAL AIDES TEACHER Visits 2 PT-OP-B Current Condition Start: 06/24/19 11:08 Freq: Status: Active Protocol: Document 06/24/19 11:08 AW (Rec: 06/24/19 12:23 AW [email or web address]) Current Condition History of Current Condition Onset Date two years Current Complaints abdominal weakness, low back pain, right posterior hip pain History of Current Condition Jada has had 8 abdominal surgeries over the past five years, including surgery for diverticulitis, ostomy takedown, x 1, and multiple ventral hernia repairs. Her last surgery was performed at [facility] in [place] at the end of January 2019. She no longer has any post-op precautions. She complains of RUQ abdominal cramping which occurs in sitting and with increased intra-abdominal pressure such as with sneezing. She also notes lack of midline abdominal sensation. 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 Robaxacet ( acetaminophen + muscle relaxant), rest, and stretching her abdomen decrease her symptoms. Sitting , reaching, lifting, and carrying make them worse. Prior Treatments and Tests No therapy outside of hospital setting Future Testing and Treatments Planned None identified Treatment Goals Patient/Caregiver Goals Pt would like to increase her confidence in engaging her trunk muscles to improve her ability to care for her children, lift, carry, and reach. 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 Current Functional Impairments (Reported) Functional Limitations- ADL's Difficulty carrying laundry up the stairs, lifting heavy pots from the back of the stove, lifting and carrying her children due to trunk weakness. Personal Factors Other Personal Factors That May Effect (-) Multiple abdominal Therapy/Recovery surgeries (+) Good spouse/family support (+) Previously active lifestyle (+) Motivation to return to PLOF. PT-OP-C Subjective Start: 06/24/19 11:08 Freq: Status: Active Protocol: Document 09/24/19 09:52 SP (Rec: 09/24/19 10:32 SP [id number]) OP-PT Subjective Patient Comments Patient Comments Pt stated back has been pretty good lately and honestly hasnt' been doing HEP much over the holidays. PT-OP-I Pelvic Floor Start: 06/24/19 11:08 Freq: Status: Active Protocol: Document 07/25/19 11:15 AMB (Rec: 07/25/19 12:57 AMB [email or web address]) Pelvic Floor Assessment Urine Leakage Size Small Leakage Cause Lifting Leaks Per Day infrequent Pelvic Clock Pelvic Clock Other no tenderness noted Prolapse Uterine Prolapse Grade 1 Prolapse Comments only visible with valsalva Perineal Descent Resting Absent Bearing Present Contraction Ability Voluntary Contraction Moderate Voluntary Relaxation Weak Manual Muscle Testing Left 2 Manual Muscle Testing Right 2 Manual Muscle Testing Anterior 3 Manual Muscle Testing Posterior 3 PT-OP-J Posture/Palpation/Skin Start: 06/24/19 11:08 Freq: Status: Active Protocol: Document 06/24/19 11:08 AW (Rec: 06/24/19 12:23 AW [email or web address]) Posture Evaluation Comments Posture Comments Pt with costal angle >90 degrees and with mildly increased lumbar lordosis Skin Assessment Incisional Assessment Incision Appearance/Comments Pt has a 9 midline abdominal scar from costal angle to level of ASIS. Scar is well- healed and has good mobility. No adhesions noted. PT-OP-K Range of Motion Start: 06/24/19 11:08 Freq: Status: Active Protocol: Document 06/24/19 11:08 AW (Rec: 06/24/19 12:23 AW [email or web address]) Lumbar Spine Range of Motion Lumbar Spine Active Percentage Testing Position Standing Comments Lumbar spine ROM WNL all planes. Hip Goniometric Range of Motion Hip Active Hip ROM WFL Yes Hip ROM Limitations Comments Bilateral hip ROM WNL with no pain provocation PT-OP-L Special Tests Start: 06/24/19 11:08 Freq: Status: Active Protocol: Document 06/24/19 11:08 AW (Rec: 06/24/19 12:23 AW [email or web address]) Special Tests Lumbar Spine Special Tests Straight Leg Raise Test Results pt reports easier supine SLR with compression through pelvis at ASIS lvl Hip Special Tests Scour Test Test Results negative bilaterally PT-OP-M Strength Start: 06/24/19 11:08 Freq: Status: Active Protocol: Document 06/24/19 11:08 AW (Rec: 06/24/19 12:23 AW [email or web address]) Trunk Strength Trunk Manual Muscle Testing Comments In supine, pt able to lower BLE slowly from fully raised position with good control Hip Strength Hip Manual Muscle Testing Right Flexion (L2) 4+ Good+ Extension (S1) 4- Good- Abduction 4 Good Adduction 4- Good- External Rotation 4+ Good+ Internal Rotation 4+ Good+ Left Flexion (L2) 4+ Good+ Extension (S1) 4- Good- Abduction 4 Good Adduction 4- Good- External Rotation 4+ Good+ Internal Rotation 4+ Good+ PT-OP-Q Treatments Start: 06/24/19 11:08 Freq: Status: Active Protocol: Document 09/24/19 09:52 SP (Rec: 09/24/19 10:32 SP [id number]) Therapeutic Exercises Sitting Exercises jamaican ball pull down Sitting Exercise Name reclined pull down Side bilateral Resistance #2 3x10 Equipment Used jamaican ball Comments cued for sitting front of SB and recline with PPT and chest lift alignm. Standing Exercises lift squat to OH raise Standing Exercise Name deep squat into OH raise Side bilateral Resistance 9# Db Reps/Minutes 2x10 Comments cued for neutral spine and knees behind toes Other Exercises lunge stance rev chop Other Exercise Name reverse chop (lunge stance) Equipment Used [place] cable Reps/Minutes 2x10 Comments cued PPT and level pelvis alignement 1/2 kneel rotation Other Exercise Name Chop trunk rotation Side bilateral Equipment Used TB #2 Reps/Minutes 2x10 Comments cued PPT awareness PT-OP-T Assessment and Plan Start: 06/24/19 11:08 Freq: Status: Active Protocol: Document 09/24/19 09:52 SP (Rec: 09/24/19 10:32 SP [email or web address]) Physical Therapy Assessment Goals 5 Impairment Pt does not tolerate pressure on her abdomen Service Director Goal (LTG) Pt will tolerate 20# pressure on abdomen for ability to participate in spear fishing during 2019 LTG Duration 10/09/19 4 Impairment Pt unable to lift overhead without RUQ pain Short Term Goal (STG) Pt will lift 10# overhead with no report of increased abdominal pain STG Duration 09/16/19 Fpc Goal (LTG) Pt will lift 15# overhead with no report of increased abdominal pain LTG Duration 10/09/19 3 Impairment Pt with limited HEP Service Director Goal (LTG) Pt will be independent with maintenance HEP LTG Duration 10/09/19 2 Impairment abdominal cramping/pain Short Term Goal (STG) Pt will report use of robaxacet <2 times per week 07/17/19 MET STG Duration 07/22/19 Fpc Goal (LTG) Pt will report use of robaxacet 1 time per week or less 08/28/19 MET LTG Duration 08/19/19 1 Impairment impaired lifting Short Term Goal (STG) Pt will carry full load of laundry up stairs with good trunk control/stability and without pain 07/17/19 PARTIALLY MET STG Duration 07/22/19 Fpc Goal (LTG) Pt will lift one of her children with good trunk control and without pain 08/28/19 NOT MET - but pt has now met STG with ability to carry full laundry basket up stairs with good control and without pain LTG Duration 08/19/19 Assessment Summary Assessment Tx focused on core stabilization and incorporating squat with OH lift and trunk rotation D2 and D2 to assimulate movements doing at home during renovations tosupport back/ core strength. Positive results feels good end of tx . Physical Therapy Plan Frequency and Duration Frequency of Treatment 1x/Week Duration of Treatment 6 weeks Plan of Care Start Date 08/28/19 Plan of Care End Date 10/09/19 Therapeutic Interventions Therapeutic Interventions Gait Training,Home Exercise Program,Joint Mobilizations, Manual Therapy,Neuromuscular Re-education,Patient/Caregiver Education,Self-Care/Home Management,Sensory Integration ,Soft Tissue Mobilization, Taping,Therapeutic Activities, Therapeutic Exercises Modalities Biofeedback,Cold Pack/Ice Massage,Hot Packs Next Visit Focus/Plan Next Note Type Treatment Note Next Visit Plan Assess added chops/reverse chops to assimulate shoveling performing at home oblique strengthening support. Continue per PT POC: Increase challenge in lifting, carrying , overhead lift
--- NOTE | 2019-11-13 12:42 | PT.OPDS ---
Current Diagnoses Personal history of other diseases of the digestive system (09/24/19) Other specified postprocedural states (09/24/19) Visit Care Team Role Provider Type Jaquelin Coe DO Primary Care Provider Physician Specialty: Family Practice Address: [address] [place] [address], [facility] [place], [address] Email: [email or web address] Giselle Thao MD Attending Provider Non-Staff Specialty: General Surgery Address: [address] [place] [address], [address], [address] Email: Visit Number Visit Number 16 Discharge Summary PT-OP-B Current Condition Start: 06/24/19 11:08 Freq: Status: Active Protocol: Document 06/24/19 11:08 AW (Rec: 06/24/19 12:23 AW [email or web address]) Current Condition History of Current Condition Onset Date two years Current Complaints abdominal weakness, low back pain, right posterior hip pain History of Current Condition Jada has had 8 abdominal surgeries over the past five years, including surgery for diverticulitis, ostomy takedown, x 1, and multiple ventral hernia repairs. Her last surgery was performed at [facility] in [place] at the end of January 2019. She no longer has any post-op precautions. She complains of RUQ abdominal cramping which occurs in sitting and with increased intra-abdominal pressure such as with sneezing. She also notes lack of midline abdominal sensation. 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 Robaxacet ( acetaminophen + muscle relaxant), rest, and stretching her abdomen decrease her symptoms. Sitting , reaching, lifting, and carrying make them worse. Prior Treatments and Tests No therapy outside of hospital setting Future Testing and Treatments Planned None identified Treatment Goals Patient/Caregiver Goals Pt would like to increase her confidence in engaging her trunk muscles to improve her ability to care for her children, lift, carry, and reach. 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 Current Functional Impairments (Reported) Functional Limitations- ADL's Difficulty carrying laundry up the stairs, lifting heavy pots from the back of the stove, lifting and carrying her children due to trunk weakness. Personal Factors Other Personal Factors That May Effect (-) Multiple abdominal Therapy/Recovery surgeries (+) Good spouse/family support (+) Previously active lifestyle (+) Motivation to return to PLOF. PT-OP-C Subjective Start: 06/24/19 11:08 Freq: Status: Active Protocol: Document 09/24/19 09:52 SP (Rec: 09/24/19 10:32 SP [id number]) OP-PT Subjective Patient Comments Patient Comments Pt stated back has been pretty good lately and honestly hasnt' been doing HEP much over the holidays. PT-OP-I Pelvic Floor Start: 06/24/19 11:08 Freq: Status: Active Protocol: Document 07/25/19 11:15 AMB (Rec: 07/25/19 12:57 AMB [email or web address]) Pelvic Floor Assessment Urine Leakage Size Small Leakage Cause Lifting Leaks Per Day infrequent Pelvic Clock Pelvic Clock Other no tenderness noted Prolapse Uterine Prolapse Grade 1 Prolapse Comments only visible with valsalva Perineal Descent Resting Absent Bearing Present Contraction Ability Voluntary Contraction Moderate Voluntary Relaxation Weak Manual Muscle Testing Left 2 Manual Muscle Testing Right 2 Manual Muscle Testing Anterior 3 Manual Muscle Testing Posterior 3 PT-OP-J Posture/Palpation/Skin Start: 06/24/19 11:08 Freq: Status: Active Protocol: Document 06/24/19 11:08 AW (Rec: 06/24/19 12:23 AW [email or web address]) Posture Evaluation Comments Posture Comments Pt with costal angle >90 degrees and with mildly increased lumbar lordosis Skin Assessment Incisional Assessment Incision Appearance/Comments Pt has a 9 midline abdominal scar from costal angle to level of ASIS. Scar is well- healed and has good mobility. No adhesions noted. PT-OP-K Range of Motion Start: 06/24/19 11:08 Freq: Status: Active Protocol: Document 06/24/19 11:08 AW (Rec: 06/24/19 12:23 AW [email or web address]) Lumbar Spine Range of Motion Lumbar Spine Active Percentage Testing Position Standing Comments Lumbar spine ROM WNL all planes. Hip Goniometric Range of Motion Hip Active Hip ROM WFL Yes Hip ROM Limitations Comments Bilateral hip ROM WNL with no pain provocation PT-OP-L Special Tests Start: 06/24/19 11:08 Freq: Status: Active Protocol: Document 06/24/19 11:08 AW (Rec: 06/24/19 12:23 AW [email or web address]) Special Tests Lumbar Spine Special Tests Straight Leg Raise Test Results pt reports easier supine SLR with compression through pelvis at ASIS lvl Hip Special Tests Scour Test Test Results negative bilaterally PT-OP-M Strength Start: 06/24/19 11:08 Freq: Status: Active Protocol: Document 06/24/19 11:08 AW (Rec: 06/24/19 12:23 AW [email or web address]) Trunk Strength Trunk Manual Muscle Testing Comments In supine, pt able to lower BLE slowly from fully raised position with good control Hip Strength Hip Manual Muscle Testing Right Flexion (L2) 4+ Good+ Extension (S1) 4- Good- Abduction 4 Good Adduction 4- Good- External Rotation 4+ Good+ Internal Rotation 4+ Good+ Left Flexion (L2) 4+ Good+ Extension (S1) 4- Good- Abduction 4 Good Adduction 4- Good- External Rotation 4+ Good+ Internal Rotation 4+ Good+ PT-OP-T Assessment and Plan Start: 06/24/19 11:08 Freq: Status: Active Protocol: Document 11/13/19 12:41 AW (Rec: 11/13/19 12:42 AW [email or web address]) Physical Therapy Assessment Goals 5 Impairment Pt does not tolerate pressure on her abdomen [facility] [employer]aler Goal (LTG) Pt will tolerate 20# pressure on abdomen for ability to participate in spear fishing during 2019 LTG Duration 10/09/19 4 Impairment Pt unable to lift overhead without RUQ pain Short Term Goal (STG) Pt will lift 10# overhead with no report of increased abdominal pain STG Duration 09/16/19 Correction Goal (LTG) Pt will lift 15# overhead with no report of increased abdominal pain LTG Duration 10/09/19 3 Impairment Pt with limited HEP Correction Goal (LTG) Pt will be independent with maintenance HEP LTG Duration 10/09/19 2 Impairment abdominal cramping/pain Short Term Goal (STG) Pt will report use of robaxacet <2 times per week 07/17/19 MET STG Duration 07/22/19 Correction Goal (LTG) Pt will report use of robaxacet 1 time per week or less 08/28/19 MET LTG Duration 08/19/19 1 Impairment impaired lifting Short Term Goal (STG) Pt will carry full load of laundry up stairs with good trunk control/stability and without pain 07/17/19 PARTIALLY MET STG Duration 07/22/19 Correction Goal (LTG) Pt will lift one of her children with good trunk control and without pain 08/28/19 NOT MET - but pt has now met STG with ability to carry full laundry basket up stairs with good control and without pain LTG Duration 08/19/19 Physical Therapy Plan Discharge Physical Therapy Discharge Reasons No Longer Attending PT Discharge Comments Spoke with pt via telephone. She is happy with her progress and is comfortable discharging at this time.
== END 2020-02-06 10:21 ==
LOC: PHYS 09:45
PROVIDERS: PCP Family Medicine; Visit Provider Surgery
DX: Z98.890 Other specified postprocedural states (principal); Z87.19 Personal history of other diseases of the digestive system
CPT/HCPCS: 97110; 97116; 97140; 97161; 97530

== ENCOUNTER → 2020-01-21 07:36 | Outpatient (CLI) | payer OTHER, MEDICAID, SELFPAY ==
[2018-02-26 09:31] VITALS: BMI 25.2
[2020-01-21 08:42] LABS: Hemoglobin A1C% w Est Avg Glu 7.3 % (4.0-6.0)
[2020-01-21 08:48] LABS: Alanine Aminotransferase 43 IU/L (<35); Albumin 4.4 g/dL (3.5-5.0); Albumin Globulin Ratio 1.5 (1.0-2.8); Alkaline Phosphatase 64 U/L (38-126); Aspartate Aminotransferase 39 IU/L (14-36); Bilirubin Total 0.4 mg/dL (0.2-1.3); Blood Urea Nitrogen 13 mg/dL (7-17); Calcium 9.7 mg/dL (8.4-10.2); Carbon Dioxide 27 mmol/L (22-32); Chloride 100 mmol/L (98-107); Estimated Glomerular Filt Rate > 60.0 mL/min (>60); Globulin 2.9 g/dL (1.7-4.1); Glucose 177 mg/dL (70-100); HEMOLYSIS < 15 (0-50); Potassium 4.6 mmol/L (3.4-5.1); Sodium 135 mmol/L (137-145); Total Protein 7.3 g/dL (6.3-8.2)
[2020-01-21 09:02] LABS: Cholesterol 246 mg/dL (140-199); HDL Cholesterol 29 mg/dL (40-60)
[2020-01-21 09:09] LABS: Triglycerides 934 mg/dL (35-150)
== END ==
PROVIDERS: PCP Family Medicine; Referring Provider Family Medicine; Visit Provider Family Medicine
DX: E11.9 Type 2 diabetes mellitus without complications (principal); E78.1 Pure hyperglyceridemia; I10 Essential (primary) hypertension
CPT/HCPCS: 36415; 80053; 80061; 83036

== ENCOUNTER → 2020-01-22 11:15 | Outpatient (CLI) | payer OTHER, MEDICAID, SELFPAY ==
[2018-02-26 09:31] VITALS: BMI 25.2
[2020-01-22 11:45] LABS: LDL Cholesterol Direct 94 mg/dL (<100)
== END ==
PROVIDERS: PCP Family Medicine; Visit Provider Family Medicine
DX: E78.1 Pure hyperglyceridemia (principal)
CPT/HCPCS: 83721

== ENCOUNTER → 2020-05-06 10:49 | Outpatient (CLI) | payer OTHER, MEDICAID, SELFPAY ==
[2018-02-26 09:31] VITALS: BMI 25.2
[2020-05-06 12:33] LABS: Hemoglobin A1C% w Est Avg Glu 7.1 % (4.0-6.0)
[2020-05-06 13:08] LABS: Alanine Aminotransferase 65 IU/L (<35); Albumin 4.2 g/dL (3.5-5.0); Albumin Globulin Ratio 1.6 (1.0-2.8); Alkaline Phosphatase 70 U/L (38-126); Aspartate Aminotransferase 62 IU/L (14-36); BUN Creatinine Ratio 23.5 (6-22); Bilirubin Total 0.6 mg/dL (0.2-1.3); Blood Urea Nitrogen 12 mg/dL (7-17); Calcium 9.6 mg/dL (8.4-10.2); Carbon Dioxide 25 mmol/L (22-32); Chloride 101 mmol/L (98-107); Cholesterol 167 mg/dL (140-199); Estimated Glomerular Filt Rate > 60.0 mL/min (>60); Globulin 2.7 g/dL (1.7-4.1); Glucose 168 mg/dL (70-100); HDL Cholesterol 27 mg/dL (40-60); HEMOLYSIS < 15 (0-50); Potassium 4.3 mmol/L (3.4-5.1); Sodium 135 mmol/L (137-145); Total Protein 6.9 g/dL (6.3-8.2)
[2020-05-06 13:18] LABS: Triglycerides 633 mg/dL (35-150)
[2020-05-06 13:19] LABS: LDL Cholesterol Direct 73 mg/dL (<100)
[2020-05-06 16:38] LABS: Creatinine Urine Random 133.6 mg/dL
[2020-05-06 16:45] LABS: Microalbumi Creatinin Ratio Ur 4.4 ug/mg CR (<30); Microalbumin Urine Random < 0.6 mg/dL (0-1.6)
== END ==
PROVIDERS: PCP Family Medicine; Referring Provider Family Medicine; Visit Provider Family Medicine
DX: E11.9 Type 2 diabetes mellitus without complications (principal); E78.1 Pure hyperglyceridemia
CPT/HCPCS: 36415; 80053; 80061; 82043; 82570; 83036; 83721

== ENCOUNTER → 2020-06-13 15:12 | Outpatient (CLI) | payer OTHER, MEDICAID, SELFPAY ==
[2018-02-26 09:31] VITALS: BMI 25.2
--- NOTE | 2020-06-13 15:13 | DI.MG.S_ITS ---
BILATERAL DIGITAL SCREENING MAMMOGRAM 3D/2D WITH CAD: 06/13/2020 CLINICAL: Baseline exam. Routine screening. No prior exams were available for comparison. The tissue of both breasts is predominantly fatty. Current study was also evaluated with a Computer Aided Detection (CAD) system. No significant masses, calcifications, or other findings are seen in either breast. IMPRESSION: NEGATIVE There is no mammographic evidence of malignancy. A 1 year screening mammogram is recommended. This exam was interpreted at Station ID: [id number]. NOTE: For mammograms, a report in lay terms will be sent to the patient. Approximately 15% of breast malignancies will not be visualized mammographically. In the management of a palpable breast mass, a negative mammogram must not discourage biopsy of a clinically suspicious lesion. Electronically Signed By: Raghu perez/cade:06/15/2020 08:13:48 letter sent: Normal Exam ACR BI-RADS Category 1: Negative 3341F
== END ==
PROVIDERS: PCP Family Medicine; Referring Provider Family Medicine; Visit Provider Family Medicine
DX: Z12.31 Encounter for screening mammogram for malignant neoplasm of breast (principal)
CPT/HCPCS: 77063; 77067

== ENCOUNTER → 2021-01-07 12:55 | Outpatient (CLI) | payer OTHER, MEDICAID, SELFPAY ==
[2018-02-26 09:31] VITALS: BMI 25.2
== END ==
PROVIDERS: PCP Family Medicine; Visit Provider Student in an Organized Health Care Education/Training Program
DX: N89.8 Other specified noninflammatory disorders of vagina (principal); R10.9 Unspecified abdominal pain
CPT/HCPCS: 87086; 87210

== ENCOUNTER → 2021-05-08 08:21 | Outpatient (CLI) | payer OTHER, MEDICAID, SELFPAY ==
[2018-02-26 09:31] VITALS: BMI 25.2
[2021-05-08 09:36] LABS: Alanine Aminotransferase 59 IU/L (<35); Albumin 4.2 g/dL (3.5-5.0); Albumin Globulin Ratio 1.6 (1.0-2.8); Alkaline Phosphatase 70 U/L (38-126); Aspartate Aminotransferase 71 IU/L (14-36); BUN Creatinine Ratio 23.3 (6-22); Bilirubin Total 0.4 mg/dL (0.2-1.3); Blood Urea Nitrogen 14 mg/dL (7-17); Calcium 9.5 mg/dL (8.4-10.2); Carbon Dioxide 23 mmol/L (22-32); Chloride 102 mmol/L (98-107); Estimated Glomerular Filt Rate > 60.0 mL/min (>60); Globulin 2.7 g/dL (1.7-4.1); Glucose 233 mg/dL (70-100); HEMOLYSIS < 15 (0-50); Potassium 4.7 mmol/L (3.4-5.1); Sodium 136 mmol/L (137-145); Total Protein 6.9 g/dL (6.3-8.2)
[2021-05-08 09:44] LABS: Hemoglobin A1C% w Est Avg Glu 8.4 % (4.0-6.0)
== END ==
PROVIDERS: PCP Family Medicine; Referring Provider Family Medicine; Visit Provider Family Medicine
DX: E11.9 Type 2 diabetes mellitus without complications (principal); I10 Essential (primary) hypertension; R74.01 Elevation of levels of liver transaminase levels
CPT/HCPCS: 36415; 80053; 83036

== ENCOUNTER → 2021-06-28 14:22 | Outpatient (CLI) | payer OTHER, MEDICAID, SELFPAY ==
[2018-02-26 09:31] VITALS: BMI 25.2
--- NOTE | 2021-06-28 | DI.MG.S_ITS ---
BILATERAL DIGITAL SCREENING MAMMOGRAM 3D/2D WITH CAD: 06/28/2021 CLINICAL: Routine screening. Comparison is made to exam dated: 06/13/2020 [facility]. The tissue of both breasts is predominantly fatty. Current study was also evaluated with a Computer Aided Detection (CAD) system. No significant masses, calcifications, or other findings are seen in either breast. There has been no significant interval change. IMPRESSION: NEGATIVE There is no mammographic evidence of malignancy. A 1 year screening mammogram is recommended. This exam was interpreted at Station ID: [id number]. NOTE: For mammograms, a report in lay terms will be sent to the patient. Approximately 15% of breast malignancies will not be visualized mammographically. In the management of a palpable breast mass, a negative mammogram must not discourage biopsy of a clinically suspicious lesion. Electronically Signed By: Carmelo Tellez M.D., jr/cade:06/28/2021 16:27:14 letter sent: Normal Exam ACR BI-RADS Category 1: Negative 3341F
== END ==
PROVIDERS: PCP Family Medicine; Referring Provider Family Medicine; Visit Provider Family Medicine
DX: Z12.31 Encounter for screening mammogram for malignant neoplasm of breast (principal)
CPT/HCPCS: 77063; 77067

== ENCOUNTER → 2021-09-07 09:20 | Outpatient (CLI) | payer OTHER, MEDICAID, SELFPAY ==
[2018-02-26 09:31] VITALS: BMI 25.2
--- NOTE | 2021-09-08 11:14 | DIAB.INIT ---
Initial Diabetes Education Assessment Name: Jada Davey Date: 09/08/21 Time: [id number] Dx: Type II Diabetes Provider: Saravanan Preferred Learning Style: Reading Aicha presents for initial diabetes visit today. Endorses new dx of T2Dm with PMH GDM c twins 7 years ago. FH of DM with father. Aicha also reports an extensive GI history, including a colectomy. States she has diarrhea at baseline, and she prefers soft stool for comfort given GI hx. Today Aicha is frustrated with her FBG continuously above 180 mg/dL despite her food intake. Recently started Lantus and titrated to 25 u, which is the max for her syringe. she is unsure how to increase insulin and worries about taking too much. Expresses emotions about having dm despite her relatively healthy lifestyle. CHO intake is moderate for most meals, though does endorse occasional juice and high carb dinner. Sometimes gets blue apron when feeling tired of her cooking. Loves her home spun honey, which she usually eats a very small amt of and has omitted since diagnosis. Diet recall: B: peach with cottage cheese, tea L: turkey sandwich (on white due to GI) snack: 6 crackers with 1oz cheese D: baked chicken, 1.5c potatoes, 8oz milk, broccoli, snap peas snack: pringles, nuts, edu cider Beverages: cider 4x per week, 2L water, 8oz oj, 8oz milk Physical Activity: No program. Tries to stay active with children. Goes on walks with them at least once per weekend. Fairly active with job 2 x per week. Has two dogs. Self-Monitoring Blood Glucose: No BG log or meter today. Checks FBG, which she reports is often in 200s. Diabetes Medications: Metformin 1000 mg BID Lantus 25u HS Pertinent Labs: 05/15: HgA1c: 8.4% H ; cholesterol: 167 ; T H ; LDL: 73 ; HDL: 27 L Past Medical History: (Last Reviewed 07/12/21 @ 09:59 by Jaquelin Coe DO) Anastomotic leak of intestine Carpal tunnel syndrome on both sides Colostomy in place Left-sided 08/08/17, later removed Ectopic History of hernia repair Extensive repair of multiple abdominal wall hernias done in 2019 at the [facility] History of salpingectomy Ectopic requiring salpingectomy 2003 recurred on other side requiring salpingectomy on the other side late 2003 HTN (hypertension) (2017) Hyperlipidemia S/P S/P colostomy takedown with hernia repair Status post colostomy With Misti's following partial colectomy with anastomotic leak Intervention: This participant was very receptive. Provided appropriate educational handouts. Discussed the following topics: Completed intake assessment. Discussed barriers to care. HgA1c, its correlation to blood glucose numbers, and rationale for goal Self-monitoring, BG goals, titration for insulin to meet FBG <140 or <130 Plate Method, impact of macronutrients on blood sugar, meal timing, carbohydrate counting, pairing macronutrients and spreading out carbohydrates for better blood glucose management General recommended servings for carbohydrates at meals and snacks Diabetes and emotions Complications and ways to reduce risk Hypoglycemia s/s and tx balancing DM health and mental health Role of physical activity and following provider guidelines for safety Created SMART goals for patient self-care and success. Goals: Discuss syringe size with pharmacy Increase insulin by 1-2 u q 3 days until FBG <140 or 80-130 make eye exam appt Check out: [email or web address].org and [email or web address] bring meter next visit Follow-up: [facility] follow-up in 2-3 weeks Johanna Corbett RDN, SHEFALI Certified Diabetes Care and General Production Worker P: [phone] Thank you for this referral
== END ==
PROVIDERS: PCP Family Medicine; Referring Provider Family Medicine; Visit Provider Family Medicine
DX: E11.9 Type 2 diabetes mellitus without complications (principal)
CPT/HCPCS: G0108

== ENCOUNTER → 2021-09-27 08:34 | Outpatient (CLI) | payer OTHER, MEDICAID, SELFPAY ==
[2018-02-26 09:31] VITALS: BMI 25.2
[2021-09-27 10:07] LABS: Alanine Aminotransferase 30 IU/L (<35); Albumin 4.3 g/dL (3.5-5.0); Albumin Globulin Ratio 1.5 (1.0-2.8); Alkaline Phosphatase 66 U/L (38-126); Aspartate Aminotransferase 34 IU/L (14-36); BUN Creatinine Ratio 21.7 (6-22); Bilirubin Total 0.3 mg/dL (0.2-1.3); Blood Urea Nitrogen 13 mg/dL (7-17); Calcium 9.4 mg/dL (8.4-10.2); Carbon Dioxide 28 mmol/L (22-32); Chloride 101 mmol/L (98-107); Creatinine Urine Random 34.6 mg/dL; Estimated Glomerular Filt Rate > 60.0 mL/min (>60); Globulin 2.8 g/dL (1.7-4.1); Glucose 161 mg/dL (70-100); HEMOLYSIS < 15 (0-50); Potassium 4.5 mmol/L (3.4-5.1); Sodium 137 mmol/L (137-145); Total Protein 7.1 g/dL (6.3-8.2)
[2021-09-27 10:08] LABS: Hemoglobin A1C% w Est Avg Glu 7.7 % (4.0-6.0)
[2021-09-27 10:10] LABS: Microalbumi Creatinin Ratio Ur 17.3 ug/mg CR (<30); Microalbumin Urine Random 0.6 mg/dL (0-1.6)
[2021-09-27 10:55] LABS: Vitamin B12 < 159 pg/mL (239-931)
== END ==
PROVIDERS: PCP Family Medicine; Referring Provider Family Medicine; Visit Provider Family Medicine
DX: K76.0 Fatty (change of) liver, not elsewhere classified (principal); E11.9 Type 2 diabetes mellitus without complications
CPT/HCPCS: 36415; 80053; 82043; 82570; 82607; 83036

== ENCOUNTER → 2022-02-28 09:06 | Outpatient (CLI) | payer OTHER, MEDICAID, SELFPAY ==
[2018-02-26 09:31] VITALS: BMI 25.2
[2022-02-28 10:36] LABS: Hemoglobin A1C% w Est Avg Glu 6.6 % (4.0-6.0)
[2022-02-28 11:42] LABS: Vitamin B12 887 pg/mL (239-931)
== END ==
PROVIDERS: PCP Family Medicine; Referring Provider Family Medicine; Visit Provider Family Medicine
DX: E53.8 Deficiency of other specified B group vitamins (principal); E11.9 Type 2 diabetes mellitus without complications
CPT/HCPCS: 36415; 82607; 83036

== ENCOUNTER → 2022-06-29 10:43 | Outpatient (CLI) | payer OTHER, MEDICAID, SELFPAY ==
[2018-02-26 09:31] VITALS: BMI 25.2
--- NOTE | 2022-06-29 10:45 | DI.MG.S_ITS ---
BILATERAL DIGITAL SCREENING MAMMOGRAM 3D/2D WITH CAD: 06/29/2022 CLINICAL: Routine screening. Comparison is made to exams dated: 06/28/2021 mammogram and 06/13/2020 mammogram - [facility]. Both breasts are almost entirely fatty (category a/<25% glandular tissue). Current study was also evaluated with a Computer Aided Detection (CAD) system. No significant masses, calcifications, or other findings are seen in either breast. There has been no significant interval change. IMPRESSION: NEGATIVE There is no mammographic evidence of malignancy. A 1 year screening mammogram is recommended. Based on the Tyrer Cuzick model (a risk assessment model) the patient's lifetime risk is 6.6% and her 10 year risk is 1.2%. According to the ACR, ACS, and NCCN guidelines, an annual breast MRI exam along with mammogram is recommended if the patient's lifetime risk is 20% or greater. This exam was interpreted at Station ID: [id number]. NOTE: For mammograms, a report in lay terms will be sent to the patient. Approximately 15% of breast malignancies will not be visualized mammographically. In the management of a palpable breast mass, a negative mammogram must not discourage biopsy of a clinically suspicious lesion. Electronically Signed By: Carmelo Tellez M.D., jr/cade:06/29/2022 15:35:40 letter sent: Normal Exam ACR BI-RADS Category 1: Negative 3341F
== END ==
PROVIDERS: PCP Family Medicine; Referring Provider Family Medicine; Visit Provider Family Medicine
DX: Z12.31 Encounter for screening mammogram for malignant neoplasm of breast (principal)
CPT/HCPCS: 77063; 77067

== ENCOUNTER → 2022-07-01 12:13 | Outpatient (CLI) | payer OTHER, MEDICAID, SELFPAY ==
[2018-02-26 09:31] VITALS: BMI 25.2
== END ==
PROVIDERS: PCP Family Medicine; Visit Provider Family Medicine
DX: R39.89 Other symptoms and signs involving the genitourinary system (principal)
CPT/HCPCS: 87210

== ENCOUNTER → 2022-08-25 08:14 | Outpatient (CLI) | payer OTHER, MEDICAID, SELFPAY ==
[2018-02-26 09:31] VITALS: BMI 25.2
[2022-08-25 09:31] LABS: Add Manual Diff / Slide Review NO; Basophils Absolute Auto 0 /uL (0-100); Basophils Percent Auto 0.5 % (0-2); Eosinophils Absolute Auto 500 /uL (0-450); Eosinophils Percent Auto 6.3 % (2-4); Hematocrit 39.5 % (36-46); Hemoglobin 13.1 g/dL (12.0-16.0); Lymphocytes Absolute Auto 2200 /uL (1100-4500); Lymphocytes Percent Auto 29.6 % (25-40); Mean Corpuscular HGB Conc 33.1 % (30-36); Mean Corpuscular Hemoglobin 30.6 PG (26-34); Mean Corpuscular Volume 92.3 fL (80-100); Monocytes Absolute Auto 400 /uL (0-900); Monocytes Percent Auto 5.2 % (3-14); Neutrophils Absolute Auto 4300 /uL (1500-7000); Neutrophils Percent Auto 58.4 % (50-75); Platelet Count 240 X10^3/uL (150-400); Red Blood Cell Count 4.28 X10^6/uL (4.0-5.2); Red Cell Distribution Width 12.3 % (11.6-14.8); White Blood Cell Count 7.3 X10^3/uL (4.5-11.0)
[2022-08-25 09:40] LABS: Hemoglobin A1C% w Est Avg Glu 6.8 % (4.0-6.0)
[2022-08-25 09:57] LABS: Alanine Aminotransferase 34 IU/L (<35); Albumin 4.1 g/dL (3.5-5.0); Albumin Globulin Ratio 1.6 (1.0-2.8); Alkaline Phosphatase 61 U/L (38-126); Aspartate Aminotransferase 33 IU/L (14-36); BUN Creatinine Ratio 20.3 (6-22); Bilirubin Total 0.3 mg/dL (0.2-1.3); Blood Urea Nitrogen 12 mg/dL (7-17); Calcium 9.1 mg/dL (8.4-10.2); Carbon Dioxide 24 mmol/L (22-32); Chloride 104 mmol/L (98-107); Estimated Glomerular Filt Rate > 60 mL/min (>60); Globulin 2.5 g/dL (1.7-4.1); Glucose 131 mg/dL (70-100); HEMOLYSIS < 15 (0-50); Potassium 4.2 mmol/L (3.4-5.1); Sodium 137 mmol/L (137-145); Total Protein 6.6 g/dL (6.3-8.2)
== END ==
PROVIDERS: Family Medicine; PCP Family Medicine; Referring Provider Family Medicine; Visit Provider Family Medicine
DX: E11.9 Type 2 diabetes mellitus without complications (principal)
CPT/HCPCS: 36415; 80053; 83036; 85025

== ENCOUNTER → 2022-12-02 11:42 | Outpatient (CLI) | payer OTHER, MEDICAID, SELFPAY ==
[2018-02-26 09:31] VITALS: BMI 25.2
[2022-12-02 15:28] LABS: Follicle Stimulating Hormone 6.24 mIU/mL
[2022-12-02 15:44] LABS: Estradiol, Total 103.9 pg/mL
== END ==
PROVIDERS: PCP Family Medicine; Referring Provider Obstetrics & Gynecology; Visit Provider Obstetrics & Gynecology
DX: N95.1 Menopausal and female climacteric states (principal)
CPT/HCPCS: 36415; 82670; 83001

== ENCOUNTER 2022-12-20 08:02 | Day surgery (SDC) | payer OTHER, MEDICAID, SELFPAY ==
[2018-02-26 09:31] VITALS: BMI 25.2
[2022-12-20 08:19] VITALS: BP 117/78; PULSE 76; RESP 16; TEMP 36.6; O2SAT 95; BMI 23.1
[2022-12-20] MEDS: LACTATED RINGERS 1,000 ML 200 ML IV (08:32)
[2022-12-20] MEDS: ONDANSETRON 4 MG/2 ML INJ (08:49)
--- NOTE | 2022-12-20 09:18 | PM.HP.1 ---
History of Present Illness History of Present Illness Date Patient Seen: 12/20/22 Time Patient Seen: 09:19 Chief complaint: Colonoscopy Narrative: 47-year-old woman personal history of colonic polyps who has a history of perforated diverticulitis requiring colostomy with subsequent reversal. Is here for screening colonoscopy. She has had some recent lower abdominal pain no unintentional weight loss blood per rectum anorexia. Currently pain-free. Please refer to the H and P from October 2022 for further detail. Patient History Medical History Anastomotic leak of intestine Carpal tunnel syndrome on both sides Colostomy in place Ectopic HTN (hypertension) (2017) Hyperlipidemia Tubular adenoma Vitamin B 12 deficiency Surgical History History of bowel resection (~2017) History of hernia repair History of salpingectomy S/P S/P colostomy takedown Status post colostomy Family & Social History Family History Father Diabetes mellitus Heart disease Hypertension High cholesterol Mother Hypertension Mental health problem Perforated duodenal ulcer Diverticulitis Grandmother Heart attack Grandfather Heart attack Grandmother Heart attack Social History: household members family lives independently Yes Tobacco & Substance use: Tobacco type cigarettes Smoking Status Former smoker alcohol intake current alcohol intake frequency a few times a week Substance Use Type does not use Meds Home Medications and Allergies Home Medications Medication Instructions Recorded Confirmed Type blood sugar diagnostic (Blood #100 ea 06/07/21 12/02/22 Rx Glucose Test strips) blood-glucose meter #1 ea 06/07/21 12/02/22 Rx lancets #100 ea 06/07/21 12/02/22 Rx insulin syringe-needle U-100 1 mL #100 ea 02/17/22 12/02/22 Rx 28 gauge x 1/2 (BD Insulin Syringe) metoprolol tartrate 100 mg tablet See Rx Instructions .Route BID 04/07/22 12/20/22 Rx #180 tabs lorazepam 1 mg tablet 1 mg PO BEDTIME PRN Anxiety #30 05/19/22 12/20/22 Rx tabs atorvastatin 10 mg tablet See Rx Instructions .Route 07/28/22 12/20/22 Rx .COMPLEX #90 tabs lisinopril 20 mg tablet See Rx Instructions .Route 08/03/22 12/20/22 Rx .COMPLEX #90 tabs metformin 1,000 mg tablet See Rx Instructions .Route 08/15/22 12/20/22 Rx .COMPLEX #180 tabs insulin glargine 100 unit/mL See Rx Instructions .Route 11/01/22 12/20/22 Rx subcutaneous solution (Lantus .COMPLEX #20 mL U-100 Insulin) progesterone micronized 100 mg 100 mg PO BEDTIME 21 days #21 caps 11/17/22 12/20/22 Rx capsule fenofibrate nanocrystallized 145 See Rx Instructions .Route 11/23/22 12/20/22 Rx mg tablet .COMPLEX #90 tabs Allergies Allergy/AdvReac Type Severity Reaction Status Date / Time No Known Drug Allergies Allergy Verified 12/02/22 11:29 Exam Vital Signs (past 8 hours): - 12/20/22 08:19 Temperature 97.8 F Pulse Rate 76 Respiratory Rate 16 Blood Pressure 117/78 Pulse Oximetry 95 Oxygen Delivery Method Room Air Oxygen Delivery Method Room Air Narrative Exam Narrative: General adult woman alert oriented no acute distress Abdomen soft nontender nondistended Assessment & Plan Assessment and plan (1) Personal history of colonic polyps: Status: Acute Assessment & Plan narrative: The patient requires colorectal screening and colonoscopy is recommended. Technical details were discussed. Risks, benefits, alternatives explained. Risks including but not limited to myocardial infarction, aspiration, bleeding, pain, missed lesion, incomplete examination, need for further radiographic studies, colonic perforation, and need for major abdominal surgery were discussed. All questions were answered to their satisfaction, and they are in agreement with this plan.
[2022-12-20 09:46] VITALS: BP 122/90; PULSE 75; RESP 16; TEMP 36.2; O2SAT 99
--- NOTE | 2022-12-20 09:46 | PM.OP.COLON ---
Operative Date/Time/Diagnoses Date of procedure: 12/20/22 Time of procedure: 09:46 Pre-op diagnosis: Personal history of colonic polyps History of perforated diverticulitis History of colostomy Post-op diagnosis: same Procedure & Clinicians Study performed: Colonoscopy Same procedure as scheduled: Yes Indications: Personal history of colonic polyps Surgeon: Elías Delgado Procedure Notes Procedure in detail: The history and physical was performed/updated and the patient is ASA class is 2. The procedure was discussed in detail with the patient. Potential risks complications including infection, bleeding, missed diagnosis, perforation, need for surgery, and were explained. Their questions were answered and informed consent was obtained. Patient was brought to the procedure room and placed standard monitoring equipment. The patient's vital signs were monitored continuously throughout the entire procedure. Prior to starting time-out was performed. The patient was placed in the left lateral recumbent position. Procedural sedation was administered by anesthesia. Examination began with a thorough inspection of the perianal area there was no evidence of fissures, fistulae, external hemorrhoids or cutaneous malignancy. The colonoscopy scope was then placed into the anal canal and was advanced to the cecum, which was identified by the ileocecal valve, the appendiceal orifice and the confluence of the taenia. The scope was then slowly withdrawn examining colon thoroughly in all directions, irrigating it of any residual stool. Normal healthy colon. No masses polyps or inflammation. Normal widely patent colorectal anastomosis in [id number] fashion. The patient tolerated the procedure well. They will be discharged once criteria are met. The prep was of good/excellent quality. The withdrawl time was 6 minutes. Specimen(s): none sent Impression: Normal colonoscopy Post-procedure Recommendations: Colonoscopy in 10 years and High fiber diet Disposition: same day surgery
[2022-12-20 09:51] VITALS: BP 135/87; PULSE 76; RESP 16; O2SAT 99
[2022-12-20 09:57] VITALS: BP 113/80; PULSE 75; RESP 14; TEMP 36.5; O2SAT 100
[2022-12-20 10:02] VITALS: BP 114/78; PULSE 70; RESP 16; TEMP 36.5; O2SAT 99
== END 2022-12-20 10:12 | disposition home or self-care (01) ==
PROVIDERS: PCP Family Medicine; Referring Provider Surgery; Visit Provider Surgery
PROC: 0DJD8ZZ Inspection of Lower Intestinal Tract, Via Natural or Artificial Opening Endoscopic (ICD-10-PCS; CPT 45378; principal; 2022-12-20 09:15)
DX: Z12.11 Encounter for screening for malignant neoplasm of colon (principal); Z86.010 Personal history of colon polyps
CPT/HCPCS: 45378; 82962; J2405; J2704

== ENCOUNTER 2023-01-12 11:36 | Emergency (ER) | payer OTHER, MEDICAID, SELFPAY ==
[2018-02-26 09:31] VITALS: BMI 25.2
[2023-01-12 11:44] VITALS: BP 148/86; PULSE 73; RESP 18; TEMP 36.6; O2SAT 98; BMI 24.9
--- NOTE | 2023-01-12 11:50 | DI.RAD.S_ITS ---
PROCEDURE: XR WRIST LT MIN 3V INDICATIONS: injury 2 weeks ago/still having sharp pains TECHNIQUE: 4 views of the wrist were acquired. COMPARISON: None. FINDINGS: Bones: No fractures or dislocations. No suspicious bony lesions. Soft tissues: No suspicious soft tissue calcifications. IMPRESSION: No acute abnormality of the left wrist. Dictated by: Tyrell Tapia M.D. on 01/12/2023 at 12:18 Approved by: Tyrell Tapia M.D. on 01/12/2023 at 12:20
--- NOTE | 2023-01-12 12:56 | ED_ITS ---
HPI - Extremity Injury (Upper) <Kimani Yoo PA-C - Last Filed: 01/12/23 18:02> General Chief Complaint: Extremity Injury, Upper Stated Complaint: may have broken LT wrist Time Seen by Provider: 01/12/23 12:43 Source: patient Mode of arrival: Ambulatory History of Present Illness HPI narrative: This is a 47-year-old female presents emergency department due to left wrist pain after hitting her hand on a counter 2 weeks ago. She reports continued pain since then. States that the pain is to the lateral aspect of the wrist just at the base of her thumb. She denies any numbness, decreased motion in her fingers, or any other concerns other than the pain. Related Data Previous Rx's Medication Instructions Recorded blood sugar diagnostic (Blood #100 ea 06/07/21 Glucose Test strips) blood-glucose meter #1 ea 06/07/21 lancets #100 ea 06/07/21 insulin syringe-needle U-100 1 mL #100 ea 02/17/22 28 gauge x 1/2 (BD Insulin Syringe) metoprolol tartrate 100 mg tablet See Rx Instructions .Route BID 04/07/22 #180 tabs lorazepam 1 mg tablet 1 mg PO BEDTIME PRN Anxiety #30 05/19/22 tabs atorvastatin 10 mg tablet See Rx Instructions .Route 07/28/22 .COMPLEX #90 tabs lisinopril 20 mg tablet See Rx Instructions .Route 08/03/22 .COMPLEX #90 tabs metformin 1,000 mg tablet See Rx Instructions .Route 08/15/22 .COMPLEX #180 tabs insulin glargine 100 unit/mL See Rx Instructions .Route 11/01/22 subcutaneous solution (Lantus .COMPLEX #20 mL U-100 Insulin) progesterone micronized 100 mg 100 mg PO BEDTIME 21 days #21 caps 11/17/22 capsule fenofibrate nanocrystallized 145 See Rx Instructions .Route 11/23/22 mg tablet .COMPLEX #90 tabs Allergies Allergy/AdvReac Type Severity Reaction Status Date / Time No Known Drug Allergies Allergy Verified 12/02/22 11:29 Review of Systems <Kimani Yoo PA-C - Last Filed: 01/12/23 18:02> Review of Systems Narrative: GENERAL: Denies chills, fatigue, malaise, fever, sweats. HEENT: Denies sinus pain, ear pain, sore throat, difficulty swallowing, dizziness. RESPIRATORY: Denies dyspnea, cough, wheezing, hemoptysis, sputum. CARDIOVASCULAR: Denies chest pain, palpitations, orthopnea, edema, GASTROINTESTINAL: Denies nausea, vomiting, abdominal pain, diarrhea, constipation, melena. : Denies dysuria, frequency, incontinence, hematuria, urinary retention. MUSCULOSKELETAL: Left wrist pain and thumb pain, denies any other denies weakness, joint pain, or bony pain SKIN: Denies rash, skin lesions, or other NEUROLOGIC: Denies weakness, headache, numbness, change in speech, confusion, seizures, incoordination. PSYCHIATRIC: No concerning psychosocial issues. 12 point review of systems is negative except for those stated above Patient History <Kimani Yoo PA-C - Last Filed: 01/12/23 18:02> Medical History Anastomotic leak of intestine Carpal tunnel syndrome on both sides Colostomy in place Ectopic HTN (hypertension) (2017) Hyperlipidemia Tubular adenoma Vitamin B 12 deficiency Surgical History History of bowel resection (~2018) History of hernia repair History of salpingectomy S/P S/P colostomy takedown Status post colostomy Family History Father Diabetes mellitus Heart disease Hypertension High cholesterol Mother Hypertension Mental health problem Perforated duodenal ulcer Diverticulitis Grandmother Heart attack Grandfather Heart attack Grandmother Heart attack Social History marital status: number of children: 2 household members: family lives independently: Yes Smoking Status: Former smoker alcohol intake: current substance use type: does not use Smoking Status: Former smoker alcohol intake frequency: a few times a week Substance Use Type: does not use Exam <EDGAR Wen Last Filed: 01/12/23 18:02> Narrative Exam Narrative: GENERAL: Well-developed patient, in mild distress. HEAD: Atraumatic. Normocephalic. EYES: Pupils equal round and reactive. Extraocular motions intact. No scleral icterus. No injection or drainage. ENT: Nose without bleeding, purulent drainage. Throat without erythema, tonsillar hypertrophy or exudate. Airway patent. NECK: Trachea midline. Non tender EXTREMITIES: Significant tenderness to palpation to the volar aspect of the base of the left thumb. Neurovascularly intact throughout. No decreases in range of motion of the left thumb or other fingers. BACK: Nontender without deformity or crepitance. No flank tenderness. NEURO: AOx3. SKIN: No rash or erythema of visible areas Initial Vital Signs Initial Vital Signs: Vital Signs Temperature 97.9 F 01/12/23 11:44 Pulse Rate 73 01/12/23 11:44 Respiratory Rate 18 01/12/23 11:44 Blood Pressure 148/86 H 01/12/23 11:44 Pulse Oximetry 98 01/12/23 11:44 Oxygen Delivery Method Room Air 01/12/23 11:44 <Kaci Bishop DO - Last Filed: 01/12/23 20:04> Initial Vital Signs Initial Vital Signs: Vital Signs Temperature 97.9 F 01/12/23 11:44 Pulse Rate 73 01/12/23 11:44 Respiratory Rate 18 01/12/23 11:44 Blood Pressure 148/86 H 01/12/23 11:44 Pulse Oximetry 98 01/12/23 11:44 Oxygen Delivery Method Room Air 01/12/23 11:44 Course <Kimani Yoo PA-C - Last Filed: 01/12/23 18:02> Orders Ordered: ED Orders 01/12/23 11:50 XR wrist LT min 3V Stat Vital Signs Vital signs: Vital Signs - 8 hr 01/12/23 14:31 Pulse Rate 67 Respiratory Rate 17 Blood Pressure 137/76 Pulse Oximetry 98 Oxygen Delivery Method Room Air <DO Viraj Montemayor Last Filed: 01/12/23 20:04> Orders Ordered: ED Orders 01/12/23 11:50 XR wrist LT min 3V Stat Vital Signs Vital signs: Vital Signs - 8 hr 01/12/23 14:31 Pulse Rate 67 Respiratory Rate 17 Blood Pressure 137/76 Pulse Oximetry 98 Oxygen Delivery Method Room Air MDM - Extremity Injury (Upper) <EDGAR Wen Last Filed: 01/12/23 18:02> Imaging Data Extremity x-ray #1: Radiologist's Impression: [address] [address] XRay Report Signed Patient: Jada Davey MR#: [id number] : 1975 Acct:[id number] Age/Sex: 47 / F Date of Service: 01/12/23 Loc: ED Accession Number: [id number] ?? Procedure: XR wrist LT min 3V Ordering Provider: Kaci Bishop D.O. PROCEDURE:? XR WRIST LT MIN 3V ? INDICATIONS: injury 2 weeks ago/still having sharp pains ? TECHNIQUE:? 4 views of the wrist were acquired.? ? COMPARISON:? None. ? FINDINGS:? ? Bones:? No fractures or dislocations.? No suspicious bony lesions.? ? Soft tissues:? No suspicious soft tissue calcifications.? ? IMPRESSION:? No acute abnormality of the left wrist. ? ? Dictated by: Tyrell Tapia M.D. on 01/12/2023 at 12:18 ? ? Approved by: Tyrell Tapia M.D. on 01/12/2023 at 12:20 ? MDM Narrative Medical decision making narrative: MDM * differential diagnosis includes but not limited to scaphoid fracture, distal radius fracture, nerve injury, tendon injury, soft tissue injury * Prior records reviewed: History of bilateral carpal tunnel syndrome. * My lab interpretation: None obtained * My imgaing interpretation: X-ray negative for acute fractures * Clinical Decision Rules/Scores evaluated: None * Independent discussions with: None ED Course: This is a 47-year-old female presenting to the emergency department due to left wrist and thumb pain after hitting on a counter 2 weeks ago. She still reports significant tenderness. X-ray negative for acute fractures but suspicious for possible occult scaphoid fracture based on physical exam and point tenderness at the volar aspect of her left thumb base. Patient was placed in a thumb spica splint and recommended use ibuprofen Tylenol for pain control follow up Orthopedics for further evaluation. Shared Decision Making: Discussed plan patient who is comfortable with the plan. Social Considerations: None Disposition: Discharged to home Discharge Plan Departure Patient Disposition: Home Clinical Impression: Acute wrist pain Activity Restrictions/Additional Instructions: Thank you for coming to the [facility] Emergency Department today. Your x- ray was negative for any acute fractures although I am concerned that the x-ray was not sensitive enough to find any small ?occult? fractures. We have placed your hand and thumb in a splint to keep it immobilized. Please follow up with the Orthopedics provider next week for further evaluation. Please use ibuprofen and Tylenol as needed for the pain. I hope you feel better soon. Prescriptions: No Action (DME) Blood Glucose Test Strip See Rx Instructions .ROUTE .MEDSUPPLY Qty: 100 3RF Rx Instructions: Use to test blood sugar daily as directed (DME) lancets Misc See Rx Instructions .ROUTE .MEDSUPPLY Qty: 100 3RF Rx Instructions: Use to test blood sugar daily as directed (DME) blood-glucose meter Misc See Rx Instructions .ROUTE .MEDSUPPLY Qty: 1 1RF Rx Instructions: Use to test blood suagr daily as directed Lantus U-100 Insulin 100 unit/mL solution See Rx Instructions .ROUTE .COMPLEX Qty: 20 3RF Dose Instruction: INJECT 45 UNITS UNDER THE SKIN EVERY EVENING Rx Instructions: INJECT 45 UNITS UNDER THE SKIN EVERY EVENING (DME) insulin syringe-needle U-100 [BD Insulin Syringe] 1 mL 28 gauge x 1/2 syringe See Rx Instructions .Route Qty: 100 12RF Rx Instructions: As directed metoprolol tartrate 100 mg tablet See Rx Instructions .ROUTE BID Qty: 180 3RF Dose Instruction: TAKE 4 TABLETS BY MOUTH TWICE DAILY Rx Instructions: Take one tablet twice daily lorazepam 1 mg tablet 1 mg PO BEDTIME PRN (Reason: Anxiety) Qty: 30 0RF atorvastatin 10 mg tablet See Rx Instructions .ROUTE .COMPLEX Qty: 90 2RF Dose Instruction: TAKE 1 TABLET BY MOUTH AT BEDTIME Rx Instructions: TAKE 1 TABLET BY MOUTH AT BEDTIME lisinopril 20 mg tablet See Rx Instructions .ROUTE .COMPLEX Qty: 90 2RF Dose Instruction: TAKE 1 TABLET BY MOUTH DAILY Rx Instructions: TAKE 1 TABLET BY MOUTH DAILY metformin 1,000 mg tablet See Rx Instructions .ROUTE .COMPLEX Qty: 180 2RF Dose Instruction: TAKE 1 TABLET (1000 MG) BY MOUTH TWICE DAILY Rx Instructions: TAKE 1 TABLET (1000 MG) BY MOUTH TWICE DAILY fenofibrate nanocrystallized 145 mg tablet See Rx Instructions .ROUTE .COMPLEX Qty: 90 1RF Dose Instruction: TAKE 1 TABLET BY MOUTH EVERY DAY Rx Instructions: TAKE 1 TABLET BY MOUTH EVERY DAY progesterone micronized 100 mg capsule 100 mg PO BEDTIME 21 Days Qty: 21 5RF Rx Instructions: off 7 days when menses start; repeat cycle 21 days of 28 days Referrals: Ann Dowell MD [Physician] - (Possible occult scaphoid fracture ) Jaquelin Coe DO [Primary Care Provider] - Stand Alone Forms: Patient Portal/API <Kaci Bishop DO - Last Filed: 01/12/23 20:04> Cosign ED Attending Cosignature Attestation: I was immediately available in the department for consultation.
--- NOTE | 2023-01-12 14:26 | PC.NURSE ---
Left thumb spica orthoglass splint
[2023-01-12 14:31] VITALS: BP 137/76; PULSE 67; RESP 17; O2SAT 98
== END 2023-01-12 14:32 | disposition home or self-care (01) ==
PROVIDERS: Emergency Provider Physician Assistant Medical; PCP Family Medicine
DX: M25.532 Pain in left wrist (principal); W22.8XXA Striking against or struck by other objects, initial encounter; Z79.899 Other long term (current) drug therapy
CPT/HCPCS: 29125; 73110; 99282; 99283

== ENCOUNTER → 2023-03-29 15:23 | Outpatient (CLI) | payer OTHER, MEDICAID, SELFPAY ==
[2018-02-26 09:31] VITALS: BMI 25.2
[2023-03-31 06:35] LABS: x Labcorp Estim. Avg Glu (eAG) 160 mg/dL (.); x Labcorp Hemoglobin A1c 7.2 % (4.8-5.6)
== END ==
PROVIDERS: PCP Family Medicine; Referring Provider Family Medicine; Visit Provider Family Medicine
DX: E11.9 Type 2 diabetes mellitus without complications (principal)
CPT/HCPCS: 36415; 83036

== ENCOUNTER → 2023-06-22 10:56 | Outpatient (CLI) | payer OTHER, MEDICAID, SELFPAY ==
[2018-02-26 09:31] VITALS: BMI 25.2
[2023-06-22 11:41] LABS: Appearance Urine UA SL CLOUDY; Bilirubin Urine UA 1+ (NEGATIVE); Glucose Urine UA 1+ g/dL (Negative); Ketones Urine UA TRACE (NEGATIVE); Leukocyte Esterase Urine UA 3+ (NEGATIVE); Nitrite Urine UA POSITIVE (Negative); Occult Blood Urine UA 3+ (Negative); Protein Urine UA 3+ (Negative); Specific Gravity Urine UA 1.015 (1.000-1.035); Urobilinogen Urine UA >=8.0 E.U./dL (0.2)
[2023-06-22 11:57] LABS: Color Urine UA ORANGE
[2023-06-22 12:05] LABS: Bacteria Urine Occasional (0-1); RBC Urine 10-30/HPF (0-5/HPF); WBC Urine >100/HPF (0-5/HPF)
[2023-06-22 12:06] LABS: Culture Indicated Urine Specimen Cultured; Squamous Epithelial Cell Urine None Seen (0-5/HPF)
== END ==
PROVIDERS: PCP Family Medicine; Referring Provider Family Medicine; Visit Provider Family Medicine
DX: R30.0 Dysuria (principal)
CPT/HCPCS: 81001; 87077; 87086; 87186

== ENCOUNTER → 2023-07-13 14:00 | Outpatient (CLI) | payer OTHER, MEDICAID, SELFPAY ==
[2018-02-26 09:31] VITALS: BMI 25.2
--- NOTE | 2023-07-13 | DI.MG.S_ITS ---
BILATERAL DIGITAL SCREENING MAMMOGRAM 3D/2D WITH CAD: 07/13/2023 CLINICAL: Routine screening. Comparison is made to exams dated: 06/29/2022 mammogram, 06/28/2021 mammogram, and 06/13/2020 mammogram - [facility]. Both breasts are almost entirely fatty (category a/<25% glandular tissue). Current study was also evaluated with a Computer Aided Detection (CAD) system. No significant masses, calcifications, or other findings are seen in either breast. There has been no significant interval change. IMPRESSION: NEGATIVE There is no mammographic evidence of malignancy. A 1 year screening mammogram is recommended. Based on the Tyrer Cuzick model (a risk assessment model) the patient's lifetime risk is 6.7% and her 10 year risk is 1.3%. According to the ACR, ACS, and NCCN guidelines, an annual breast MRI exam along with mammogram is recommended if the patient's lifetime risk is 20% or greater. This exam was interpreted at Station ID: [id number]. NOTE: For mammograms, a report in lay terms will be sent to the patient. Approximately 15% of breast malignancies will not be visualized mammographically. In the management of a palpable breast mass, a negative mammogram must not discourage biopsy of a clinically suspicious lesion. Electronically Signed By: Chaparrita palmer/cade:07/13/2023 17:29:59 letter sent: Normal Exam ACR BI-RADS Category 1: Negative [id number]
== END ==
PROVIDERS: PCP Family Medicine; Referring Provider Family Medicine; Visit Provider Family Medicine
DX: Z12.31 Encounter for screening mammogram for malignant neoplasm of breast (principal)
CPT/HCPCS: 77063; 77067

== ENCOUNTER → 2023-07-28 09:03 | Outpatient (CLI) | payer OTHER, MEDICAID, SELFPAY ==
[2018-02-26 09:31] VITALS: BMI 25.2
[2023-07-28 10:05] LABS: Hemoglobin A1C% w Est Avg Glu 6.4 % (4.0-6.0)
[2023-07-28 10:12] LABS: BUN Creatinine Ratio 13.3 (6-22); Blood Urea Nitrogen 8 mg/dL (7-17); Calcium 9.7 mg/dL (8.4-10.2); Carbon Dioxide 24 mmol/L (22-32); Chloride 103 mmol/L (98-107); Cholesterol 196 mg/dL (140-199); Estimated Glomerular Filt Rate > 60 mL/min (>60); Glucose 119 mg/dL (70-100); HDL Cholesterol 36 mg/dL (40-60); HEMOLYSIS < 15 (0-50); Potassium 4.4 mmol/L (3.4-5.1); Sodium 137 mmol/L (137-145); Triglycerides 456 mg/dL (35-150)
== END ==
PROVIDERS: PCP Family Medicine; Referring Provider Family Medicine; Visit Provider Family Medicine
DX: E11.9 Type 2 diabetes mellitus without complications (principal); Z79.4 Long term (current) use of insulin; E78.2 Mixed hyperlipidemia; I10 Essential (primary) hypertension
CPT/HCPCS: 36415; 80048; 80061; 83036

== ENCOUNTER 2023-11-11 14:11 | Inpatient (IN) | payer MEDICAID, SELFPAY ==
[2018-02-26 09:31] VITALS: BMI 25.2
[2023-11-11] VITALS (12 sets, daily range): BP systolic 117–171; BP diastolic 63–74; PULSE 88–105; RESP 16–22; TEMP 36.9; O2SAT 95–99; BMI 22.8
--- NOTE | 2023-11-11 14:36 | ED.URI ---
HPI - URI/Sore Throat General Chief Complaint: Upper Respiratory Symptoms Stated Complaint: throat swelling and pain Time Seen by Provider: 11/11/23 14:29 History of Present Illness HPI Narrative: Patient is a 47-year-old female history of insulin-dependent diabetes hypertension hyperlipidemia presenting today with increased difficulty swallowing. She reports that 4 days ago she woke up and felt like she had a bite or pimple or something on the tip of her nose it was extremely read by the next day it moved over to her left cheek where she progressively had increased swelling of her face. Today she woke up and has significant swelling painful swallowing on her right side. She has obvious enlarged submandibular lymph nodes. She has had inability to eat solids since last night. She is able to swallow her own secretions but she says it is quite difficult. She has been trying to stay hydrated also difficult. No real fevers or chills. The erythema has improved Related Data Home Medications Medication Instructions Recorded Confirmed semaglutide 1 mg/dose (4 mg/3 mL) 1 mg SUBCUT QWEEK 11/11/23 11/11/23 subcutaneous pen injector (Ozempic) Previous Rx's Medication Instructions Recorded blood-glucose meter #1 ea 06/07/21 lancets #100 ea 06/07/21 fenofibrate nanocrystallized 145 See Rx Instructions .Route 03/29/23 mg tablet .COMPLEX #90 tabs lisinopril 20 mg tablet See Rx Instructions .Route 03/29/23 .COMPLEX #90 tabs lorazepam 1 mg tablet 1 mg PO BEDTIME PRN Anxiety #30 03/29/23 tabs metformin 1,000 mg tablet See Rx Instructions .Route 03/29/23 .COMPLEX #180 tabs metoprolol tartrate 100 mg tablet See Rx Instructions .Route BID 03/29/23 #180 tabs blood sugar diagnostic (Blood #100 ea 06/22/23 Glucose Test strips) insulin glargine 100 unit/mL See Rx Instructions .Route 06/22/23 subcutaneous solution (Lantus .COMPLEX #20 mL U-100 Insulin) insulin syringe-needle U-100 1 mL #100 ea 06/30/23 28 gauge x 1/2 (BD Insulin Syringe) atorvastatin 40 mg tablet (Lipitor) 40 mg PO BEDTIME cholesterol #90 08/02/23 tabs ondansetron HCl 4 mg tablet 4 mg PO Q6-8H PRN nausea and 08/02/23 vomiting #30 tabs progesterone micronized 100 mg 100 mg PO BEDTIME 21 days #21 caps 09/01/23 capsule Allergies Allergy/AdvReac Type Severity Reaction Status Date / Time No Known Drug Allergies Allergy Verified 11/11/23 13:45 Patient History Medical History (Updated 11/11/23 @ 18:47 by Chaya Whitehead DO) Situational anxiety Type 2 diabetes mellitus without complication, with long-term current use of insulin Tubular adenoma Vitamin B 12 deficiency Hyperlipidemia 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 Carpal tunnel syndrome on both sides Ectopic HTN (hypertension) (2017) Surgical History History of bowel resection (~2018) History of hernia repair S/P Status post colostomy S/P colostomy takedown History of salpingectomy Family History Father Diabetes mellitus Heart disease Hypertension High cholesterol Mother Hypertension Mental health problem Perforated duodenal ulcer Diverticulitis Grandmother Heart attack Grandfather Heart attack Grandmother Heart attack Social History marital status: number of children: 2 household members: family lives independently: Yes Smoking Status: Former smoker alcohol intake: current substance use type: does not use Smoking Status: Former smoker alcohol intake frequency: a few times a week Substance Use Type: does not use Exam Initial Vital Signs Initial Vital Signs: Vital Signs Pulse Rate 105 H 11/11/23 14:34 Respiratory Rate 22 11/11/23 14:34 Blood Pressure 171/74 H 11/11/23 14:34 Pulse Oximetry 96 11/11/23 14:34 Oxygen Delivery Method Room Air 11/11/23 14:34 GENERAL: Well-appearing, well-nourished and in no acute distress. HEENT: Head atraumatic,EOMI, pupils reactive, significant swelling of face but no severe periorbital edema or erythema she does have some mild zygomatic arch erythema very impressive right submandibular lymphadenopathy noted on the left as well but greater on the right. She is managing her own secretions does feel like her voice is hoarse PHARYNX: No uvula swelling or deviation no enlarged tonsils airway patent CARDIOVASCULAR: Regular rate and rhythm without murmurs, rubs or gallops. RESPIRATORY: Breath sounds equal bilaterally, no wheezes rales or rhonchi. EXTREMITIES: Normal range of motion, no clubbing or edema. Neurovascularly intact NEUROLOGICAL: Alert and oriented x4.Normal gait and speech. Cranial nerves II through XII grossly intact. SKIN: Warm, dry, no laceration, no petechiae, no rashes or lesions. Course Orders Ordered: ED Orders 11/11/23 14:28 CBC Auto Diff [Complete Blood Count AUTO DIFF] Stat CMP [Comprehensive Metabolic Panel] Stat Lactate (Lactic Acid) Stat Procalcitonin Stat 11/11/23 14:37 CT soft tissue neck w con Stat 11/11/23 15:43 Blood Culture Stat Acetaminophen (Acetaminophen 325 Mg Tablet) 650 mg PO Q6H PRN PRN Reason: Fever/Mild Pain (1-3) Enoxaparin Sodium (Enoxaparin 40 Mg/0.4 Ml Syringe) 40 mg SUBCUT DAILY LOI Hydromorphone HCl (Hydromorphone 0.5 Mg Inj) 0.5 mg IV Q4H PRN PRN Reason: Pain, Moderate (4-6) Last Admin: 11/11/23 18:17 Dose: 0.5 mg Documented By: RLS Sodium Chloride (Normal Saline 0.9%) 1,000 mls @ 125 mls/hr IV CONT LOI Piperacillin Sod/Tazobactam (Sod 3.375 gm/ Sodium Chloride) 100 mls @ 25 mls/hr IV Q8H LOI Dextrose (D10w) 100 mls @ 1,200 mls/hr IV PRN PRN PRN Reason: Hypoglycemia Ibuprofen (Ibuprofen 600 Mg Tablet) 600 mg PO Q6H PRN PRN Reason: Fever/Mild Pain (1-3) Insulin Human Lispro (Insulin Lispro 100 Unit/Ml 3ml Vial) 0 unit SUBCUT ACHS LOI; Protocol Naloxone HCl (Naloxone 0.4 Mg/Ml Vial) 0.2 mg IV Q2MIN PRN PRN Reason: Opiate Reversal Ondansetron HCl (Ondansetron 4 Mg/2 Ml Inj) 4 mg IV Q4HR PRN PRN Reason: Nausea And Vomiting Vancomycin HCl (Vancomycin Per Pharmacy) 1 request MISC NOW ONE Stop: 11/11/23 17:45 Discontinued Medications Dexamethasone (Dexamethasone 10 Mg/Ml Vial) 10 mg IV NOW ONE Stop: 11/11/23 14:38 Last Admin: 11/11/23 15:21 Dose: 10 mg Documented By: VICENTE Hydromorphone HCl (Hydromorphone 0.5 Mg Inj) 0.5 mg IV NOW ONE Stop: 11/11/23 15:27 Last Admin: 11/11/23 15:29 Dose: 0.5 mg Documented By: VICENTE Sodium Chloride (Normal Saline 0.9%) 1,000 mls @ 1,000 mls/hr IV BOLUS ONE Stop: 11/11/23 15:36 Last Infusion: 11/11/23 17:49 Dose: Infused Documented By: Admin: 11/11/23 15:20 Dose: 1,000 mls/hr Documented By: VICENTE Piperacillin Sod/Tazobactam (Sod 4.5 gm/ Sodium Chloride) 100 mls @ 200 mls/hr IV NOW ONE Stop: 11/11/23 14:42 Last Infusion: 11/11/23 16:46 Dose: Infused Documented By: Admin: 11/11/23 15:36 Dose: 200 mls/hr Documented By: VICENTE Acetaminophen (Ofirmev) 1,000 mg in 100 mls @ 400 mls/hr IV NOW ONE Stop: 11/11/23 17:26 Last Infusion: 11/11/23 18:41 Dose: Infused Documented By: Admin: 11/11/23 17:41 Dose: 400 mls/hr Documented By: VICENTE Vancomycin HCl (Vancomycin) 1,000 mg in 200 mls @ 200 mls/hr IV NOW ONE Stop: 11/11/23 18:11 Last Admin: 11/11/23 18:08 Dose: 200 mls/hr Documented By: UMAIR Ondansetron HCl (Ondansetron 4 Mg/2 Ml Inj) 4 mg IV NOW ONE Stop: 11/11/23 15:28 Last Admin: 11/11/23 15:29 Dose: 4 mg Documented By: VICENTE Vital Signs Vital signs: Vital Signs - 8 hr 11/11/23 14:34 Pulse Rate 105 H Respiratory Rate 22 Blood Pressure 171/74 H Pulse Oximetry 96 Oxygen Delivery Method Room Air MDM - URI/Sore Throat Lab Data 11/11/23 14:28 11/11/23 14:28 Labs: Lab Results 11/11/23 Range/Units 14:28 WBC 19.0 H (4.5-11.0) X10^3/uL RBC 4.51 (4.0-5.2) X10^6/uL Hgb 14.0 (12.0-16.0) g/dL Hct 41.6 (36-46) % MCV 92.3 (80-100) fL MCH 31.0 (26-34) PG MCHC 33.6 (30-36) % RDW 12.5 (11.6-14.8) % Plt Count 278 (150-400) X10^3/uL Neut % (Auto) 92.4 H (50-75) % Lymph % (Auto) 3.2 L (25-40) % Edmonson % (Auto) 3.5 (3-14) % Eos % (Auto) 0.4 L (2-4) % Baso % (Auto) 0.5 (0-2) % Neut # (Auto) 37590 H (0101-8705) /uL Lymph # (Auto) 600 L (2033-6911) /uL [place] # (Auto) 700 (0-900) /uL Eos # (Auto) 100 (0-450) /uL Baso # (Auto) 100 (0-100) /uL Sodium 137 (137-145) mmol/L Potassium 4.0 (3.4-5.1) mmol/L Chloride 100 (98-107) mmol/L Carbon Dioxide 23 (22-32) mmol/L BUN 10 (7-17) mg/dL Creatinine 0.65 (0.52-1.04) mg/dL Estimated GFR > 60 (>60) mL/min BUN/Creatinine Ratio 15.4 (6-22) Glucose 127 H (70-100) mg/dL Lactate 1.7 (0.7-2.1) mmol/L Calcium 9.8 (8.4-10.2) mg/dL Total Bilirubin 0.8 (0.2-1.3) mg/dL AST 22 (14-36) IU/L ALT 24 (<35) IU/L Alkaline Phosphatase 68 (38-126) U/L Total Protein 8.1 (6.3-8.2) g/dL Albumin 4.6 (3.5-5.0) g/dL Globulin 3.5 (1.7-4.1) g/dL Albumin/Globulin Ratio 1.3 (1.0-2.8) Procalcitonin 0.10 (<0.5) ng/mL Imaging Data CT soft tissue neck: Radiologist's Impression: PROCEDURE: CT SOFT TISSUE NECK W CON INDICATIONS: significant submandibular lymphadenopathy TECHNIQUE: After the administration of intravenous contrast, 3.0 mm axial sections acquired from the sella to the aortic arch. Additional oblique axial 3.0 mm sections acquired through the pharynx. 3 mm thick coronal and sagittal reformats were generated. For radiation dose reduction, the following was used: automated exposure control. COMPARISON: None. FINDINGS: Image quality: Excellent. Lymph nodes: Mildly enlarged submandibular lymph nodes are seen, with the largest seen on the right measuring 12 x 9 mm. Enlarged lymph nodes are seen elsewhere, including on the right at level 2A measuring 15 x 10 mm. Vessels: Visualized vasculature appears patent. Neck spaces: The oropharynx, nasopharynx, and pharynx demonstrate no mucosal lesions. The vocal cords, false vocal cords, pyriform sinuses, epiglottis, vallecula, and tongue base all appear normal. There is thickening of the right platysma muscle. No soft tissue abscess is seen. Glands: The right submandibular gland is mildly enlarged and hyperenhancing compared to left submandibular gland. Surrounding inflammatory change can be seen. The parotid glands appear normal. Thyroid gland demonstrates no significant abnormality. Miscellaneous: Visualized brain and orbits appear normal. Lung apices appear clear. Superficial soft tissues appear normal. Bones: No suspicious bony lesions. Visualized sinuses and mastoids appear unremarkable. IMPRESSION: These imaging findings are most compatible with right submandibular gland sialoadenitis, with surrounding inflammatory change and secondary lymph node enlargement. No soft tissue abscess can be seen. Please consider short-term follow-up. Dictated by: Ronald Carney M.D. on 11/11/2023 at 14:15 MDM Narrative Medical decision making narrative: Patient 47-year-old female presents today with significant submandibular swelling and right-sided soft tissue neck erythema. Patient's symptoms are concerning for deep neck soft tissue cellulitis also possibly a Rangel angina. She is able to speak and manage her secretions although it does hurt she does not have any airway compromise Blood work has been reviewed she does have leukocytosis of 19, lactate 1.7 no TOMAS or electrolyte abnormality Imaging soft tissue neck reveals significant submandibular lymphadenopathy without airway compromise no evidence of abscess or fluid Patient is given IV fluids dexamethasone zone Zosyn Dilaudid and Tylenol 1700 Dr. Bray, on-callENT updated on patient's symptoms and test results agrees that patient needs admission close monitoring and IV antibiotics but no surgical intervention required at this 1715 Dr. Sanchez updated patient's symptoms test results and accepts patient Discharge Plan Departure Patient Disposition: Admitted As Inpatient Clinical Impression: Cellulitis of neck, Acute sialoadenitis Admit Date/Time: 11/11/23 17:18 Admit Provider: Alverto Sanchez
[2023-11-11 14:46] LABS: Add Manual Diff / Slide Review NO; Basophils Absolute Auto 100 /uL (0-100); Basophils Percent Auto 0.5 % (0-2); Eosinophils Absolute Auto 100 /uL (0-450); Eosinophils Percent Auto 0.4 % (2-4); Hematocrit 41.6 % (36-46); Lymphocytes Absolute Auto 600 /uL (1100-4500); Lymphocytes Percent Auto 3.2 % (25-40); Mean Corpuscular HGB Conc 33.6 % (30-36); Mean Corpuscular Volume 92.3 fL (80-100); Monocytes Absolute Auto 700 /uL (0-900); Monocytes Percent Auto 3.5 % (3-14); Neutrophils Absolute Auto 17500 /uL (1500-7000); Neutrophils Percent Auto 92.4 % (50-75); Platelet Count 278 X10^3/uL (150-400); Red Blood Cell Count 4.51 X10^6/uL (4.0-5.2); Red Cell Distribution Width 12.5 % (11.6-14.8)
[2023-11-11 14:50] LABS: Lactate (Lactic Acid) 1.7 mmol/L (0.7-2.1)
[2023-11-11 14:51] LABS: Alanine Aminotransferase 24 IU/L (<35); Albumin 4.6 g/dL (3.5-5.0); Albumin Globulin Ratio 1.3 (1.0-2.8); Alkaline Phosphatase 68 U/L (38-126); Aspartate Aminotransferase 22 IU/L (14-36); BUN Creatinine Ratio 15.4 (6-22); Bilirubin Total 0.8 mg/dL (0.2-1.3); Blood Urea Nitrogen 10 mg/dL (7-17); Calcium 9.8 mg/dL (8.4-10.2); Carbon Dioxide 23 mmol/L (22-32); Chloride 100 mmol/L (98-107); Estimated Glomerular Filt Rate > 60 mL/min (>60); Globulin 3.5 g/dL (1.7-4.1); Glucose 127 mg/dL (70-100); HEMOLYSIS < 15 (0-50); Sodium 137 mmol/L (137-145); Total Protein 8.1 g/dL (6.3-8.2)
[2023-11-11] MEDS: SODIUM CHLORIDE 0.9% 1,000 ML 1000 ML IV (15:20)
[2023-11-11] MEDS: DEXAMETHASONE 10 MG/ML VIAL IV (15:21)
[2023-11-11] MEDS: HYDROMORPHONE 0.5 MG INJ IV ×4 (15:29→23:37)
[2023-11-11] MEDS: ONDANSETRON 4 MG/2 ML INJ IV (15:29)
[2023-11-11] MEDS: PIPERACILLIN/TAZO 4.5 GM in SODIUM CHLORIDE 0.9% 100 ML IV (15:36)
--- NOTE | 2023-11-11 15:37 | PC.NURSE ---
lab at bedside for 2nd set prior to iv atb start
[2023-11-11] MEDS: ACETAMINOPHEN IV 1,000 MG/100 ML VIAL 400 MG IV (17:41)
[2023-11-11] MEDS: VANCOMYCIN 1,000 MG/200 ML PIGGYBACK 200 MG IV (18:08)
[2023-11-11 19:54] LABS: Magnesium 1.3 mg/dL (1.6-2.3)
--- NOTE | 2023-11-11 20:01 | P.HP_ITS ---
History of Present Illness History of Present Illness Date Patient Seen: 11/11/23 Chief complaint: throat swelling and pain Narrative: Aicha Davey is a 47yo F with PMH of DM2, anxiety, HTN, perforated diverticulitis s/p resection, and HLD who presents with swelling of neck and found to have cellulitis and sialoadenitis of R submandibular gland. Patient states her mouth has been extra dry the past 2 days. She then developed severe pain and swelling in her right jaw and neck with erythema extending down her neck. The pain continues to worsen and was so severe she cried. In the ED found to have cellulitis of R neck with lymphadenopathy of submandibular region. No abscess or stone identified. She was given IV abx and 10mg IV dexamethasone. Patient states her pain isn't much better, and only dilaudid has been working but she needs it every 3 hours as 4 is too long. She denies difficulty breathing, speaking, NV, CP, abd pain or diarrhea. Has pain with swallowing. [facility] Medical History (Updated 11/11/23 @ 18:47 by Chaya Whitehead DO) Situational anxiety Type 2 diabetes mellitus without complication, with long-term current use of insulin Tubular adenoma Vitamin B 12 deficiency Hyperlipidemia 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 Carpal tunnel syndrome on both sides Ectopic HTN (hypertension) (2017) Surgical History History of bowel resection (~2018) History of hernia repair S/P Status post colostomy S/P colostomy takedown History of salpingectomy Family History Father Diabetes mellitus Heart disease Hypertension High cholesterol Mother Hypertension Mental health problem Perforated duodenal ulcer Diverticulitis Grandmother Heart attack Grandfather Heart attack Grandmother Heart attack Social History marital status: number of children: 2 household members: family lives independently: Yes Smoking Status: Former smoker alcohol intake: current substance use type: does not use Meds Home Medications and Allergies Home Medications Medication Instructions Recorded Confirmed Type blood-glucose meter #1 ea 06/07/21 08/02/23 Rx lancets #100 ea 06/07/21 08/02/23 Rx lorazepam 1 mg tablet 1 mg PO BEDTIME PRN Anxiety #30 03/29/23 11/11/23 Rx tabs blood sugar diagnostic (Blood #100 ea 06/22/23 08/02/23 Rx Glucose Test strips) insulin syringe-needle U-100 1 mL #100 ea 06/30/23 08/02/23 Rx 28 gauge x 1/2 (BD Insulin Syringe) atorvastatin 40 mg tablet (Lipitor) 40 mg PO BEDTIME cholesterol #90 08/02/23 11/11/23 Rx tabs ondansetron HCl 4 mg tablet 4 mg PO Q6-8H PRN nausea and 08/02/23 11/11/23 Rx vomiting #30 tabs progesterone micronized 100 mg 100 mg PO BEDTIME 21 days #21 caps 09/01/23 11/11/23 Rx capsule fenofibrate nanocrystallized 145 145 mg PO QAM 11/11/23 11/11/23 History mg tablet insulin glargine 100 unit/mL 8 unit SUBCUT QPM 11/11/23 11/11/23 History subcutaneous solution (Lantus U-100 Insulin) lisinopril 20 mg tablet 20 mg PO QAM 11/11/23 11/11/23 History metformin 1,000 mg tablet 1,000 mg PO BID 11/11/23 11/11/23 History metoprolol tartrate 100 mg tablet 100 mg PO BID 11/11/23 11/11/23 History semaglutide 1 mg/dose (4 mg/3 mL) 1 mg SUBCUT QWEEK 11/11/23 11/11/23 History subcutaneous pen injector (Ozempic) Allergies Allergy/AdvReac Type Severity Reaction Status Date / Time No Known Drug Allergies Allergy Verified 11/11/23 13:45 Review of Systems Review of Systems Narrative: All other systems reviewed with the patient and are negative unless otherwise stated. Exam Vital Signs (past 8 hours): - 11/11/23 14:34 11/11/23 15:41 11/11/23 15:42 Pulse Rate 105 H 104 H 104 H Respiratory Rate 22 Blood Pressure 171/74 H Pulse Oximetry 96 99 99 Oxygen Delivery Method Room Air 11/11/23 15:42 11/11/23 16:00 11/11/23 16:00 Pulse Rate 102 H Respiratory Rate Blood Pressure 143/70 H 122/73 Pulse Oximetry 98 Oxygen Delivery Method 11/11/23 16:30 11/11/23 16:30 11/11/23 17:01 Pulse Rate 97 H 100 H Respiratory Rate Blood Pressure 127/74 Pulse Oximetry 96 96 Oxygen Delivery Method 11/11/23 17:30 11/11/23 18:00 11/11/23 18:30 Pulse Rate 95 H 94 H 93 H Respiratory Rate Blood Pressure Pulse Oximetry 95 97 96 Oxygen Delivery Method 11/11/23 19:00 Pulse Rate 96 H Respiratory Rate 18 Blood Pressure Pulse Oximetry 95 Oxygen Delivery Method Oxygen Delivery Method Room Air Narrative Exam Narrative: GEN: mod distress HEENT: moist mucous membranes, PERRL NECK: extensive swelling and erythema of R submandibular region extending down neck to chest. No purulence. CV: regular rate and rhythm, no murmurs PULM: clear bilaterally ABD: soft, nontender, nondistended, no organomegaly EXT: warm and well perfused with no edema NEURO: awake, alert, oriented, no focal deficits Objective Labs 11/12/23 05:05 11/12/23 05:05 Labs: Laboratory Results - last 24 hr 11/11/23 14:28 WBC 19.0 H RBC 4.51 Hgb 14.0 Hct 41.6 MCV 92.3 MCH 31.0 MCHC 33.6 RDW 12.5 Plt Count 278 Neut % (Auto) 92.4 H Lymph % (Auto) 3.2 L [place] % (Auto) 3.5 Eos % (Auto) 0.4 L Baso % (Auto) 0.5 Neut # (Auto) 45477 H Lymph # (Auto) 600 L [place] # (Auto) 700 Eos # (Auto) 100 Baso # (Auto) 100 Sodium 137 Potassium 4.0 Chloride 100 Carbon Dioxide 23 BUN 10 Creatinine 0.65 Estimated GFR > 60 BUN/Creatinine Ratio 15.4 Glucose 127 H Lactate 1.7 Calcium 9.8 Magnesium 1.3 L Total Bilirubin 0.8 AST 22 ALT 24 Alkaline Phosphatase 68 Total Protein 8.1 Albumin 4.6 Globulin 3.5 Albumin/Globulin Ratio 1.3 Procalcitonin 0.10 Assessment & Plan Assessment & Plan narrative: # cellulitis of neck secondary to sialadenitis -CT with soft tissue swelling of R submandibular region and neck, no stones or abscess -ENT consulted by ED, recommended antibiotics and decadron -continue vanc and Zosyn -continue dex 8mg IV q8h -dilaudid and oxy PRN for pain -f/up blood cultures # DM2 -start lantus 15u daily due to steroid use -hold ozempic -med dose SSI -hold metformin # HTN -continue lisinopril and metop # HLD -continue fenofibrate and lipitor # anxiety -continue ativan PRN at bedtime Code status is full code. DVT prophylaxis with Lovenox. Proxy is Shailesh. I have reviewed home meds and used all available resources to reconcile the home meds. Case discussed with ED physician/APC and patient will be admitted to the hospitalist service for further workup and management. This patient will be admitted as inpatient and will require greater than 2 midnights of hospital time to treat cellulitis.
[2023-11-11] MEDS: KETOROLAC 30 MG/ML VIAL IV (20:34)
[2023-11-11] MEDS: INSULIN LISPRO 100 UNIT/ML 3ML VIAL SUBCUT (20:49)
[2023-11-11] MEDS: SODIUM CHLORIDE 0.9% 1,000 ML 125 ML IV (20:54)
[2023-11-11] MEDS: PIPERACILLIN/TAZO 3.375 GM in SODIUM CHLORIDE 0.9% 100 ML IV (21:10)
[2023-11-11] MEDS: MAGNESIUM SULFATE 4 GM/100 ML PIGGYBACK IV (23:37)
--- NOTE | 2023-11-11 23:55 | PC.NURSE ---
Pt requested her home medication of ativan d/t she is unable to sleep. MD Torres called and medication requested, placed order.
[2023-11-12] VITALS (18 sets, daily range): BP systolic 118–155; BP diastolic 66–89; PULSE 79–99; RESP 16–18; TEMP 35.7–36.3; O2SAT 89–99
[2023-11-12] MEDS: LORazepam 1 MG TABLET PO ×2 (00:01→23:05)
[2023-11-12] MEDS: HYDROMORPHONE 0.5 MG INJ IV ×6 (02:57→23:05)
--- NOTE | 2023-11-12 04:43 | PC.NURSE ---
Pt face is still swollen with particular emphasis to right side of neck and under jaw, no change this RN can appreciate from the start of the shift. Pt denies it feeling any larger or smaller. Pt is able to swallow liquids well still. Pt denies any difficulty in breathing. Equal rise and fall of chest, no respiratory distress noted.
[2023-11-12] MEDS: ONDANSETRON 4 MG/2 ML INJ IV (05:00)
[2023-11-12] MEDS: VANCOMYCIN 1,500 MG/300 ML PIGGYBACK 150 MG IV (05:01)
[2023-11-12 05:18] LABS: Add Manual Diff / Slide Review NO; Basophils Absolute Auto 0 /uL (0-100); Basophils Percent Auto 0.1 % (0-2); Eosinophils Absolute Auto 0 /uL (0-450); Eosinophils Percent Auto 0.2 % (2-4); Hematocrit 35.5 % (36-46); Hemoglobin 11.9 g/dL (12.0-16.0); Lymphocytes Absolute Auto 500 /uL (1100-4500); Lymphocytes Percent Auto 2.4 % (25-40); Mean Corpuscular HGB Conc 33.7 % (30-36); Mean Corpuscular Hemoglobin 30.9 PG (26-34); Mean Corpuscular Volume 91.9 fL (80-100); Monocytes Absolute Auto 700 /uL (0-900); Monocytes Percent Auto 3.2 % (3-14); Neutrophils Absolute Auto 19900 /uL (1500-7000); Neutrophils Percent Auto 94.1 % (50-75); Platelet Count 265 X10^3/uL (150-400); Red Blood Cell Count 3.86 X10^6/uL (4.0-5.2); Red Cell Distribution Width 12.6 % (11.6-14.8); White Blood Cell Count 21.2 X10^3/uL (4.5-11.0)
[2023-11-12 05:26] LABS: BUN Creatinine Ratio 17.3 (6-22); Blood Urea Nitrogen 9 mg/dL (7-17); Calcium 8.8 mg/dL (8.4-10.2); Carbon Dioxide 22 mmol/L (22-32); Chloride 104 mmol/L (98-107); Estimated Glomerular Filt Rate > 60 mL/min (>60); Glucose 210 mg/dL (70-100); HEMOLYSIS < 15 (0-50); Magnesium 2.6 mg/dL (1.6-2.3); Potassium 3.8 mmol/L (3.4-5.1); Sodium 137 mmol/L (137-145)
[2023-11-12 05:42] LABS: Procalcitonin 0.28 ng/mL (<0.5)
[2023-11-12] MEDS: PIPERACILLIN/TAZO 3.375 GM in SODIUM CHLORIDE 0.9% 100 ML IV ×3 (06:41→22:54)
--- NOTE | 2023-11-12 06:59 | PC.NURSE ---
Pt given a carmen katerina, apple juice, ice, and refilled her ice pack. Pt is still tolerating PO intake of liquids very well. Pt was also given a toothbrush, tooth paste and a hairbursh. Pt verbalized understanding that she should wait to go brush her teeth once she starts to get some relief w/ pain medication. Pt inquiring on if pt will be here tonight as well. Pt was educated to discuss this with the admitting team and surgery to determine a better time frame for admission. Pt verbalized understanding.
[2023-11-12] MEDS: INSULIN LISPRO 100 UNIT/ML 3ML VIAL SUBCUT ×4 (07:52→21:19)
--- NOTE | 2023-11-12 08:05 | PC.NURSE ---
able to tolerated a clear liquid diet. states its so sharp when she swallows.
--- NOTE | 2023-11-12 08:07 | PC.NURSE ---
vte +1 on progesterone
[2023-11-12] MEDS: KETOROLAC 30 MG/ML VIAL IV (08:21)
[2023-11-12] MEDS: ENOXAPARIN 40 MG/0.4 ML SYRINGE SUBCUT (08:22)
[2023-11-12] MEDS: OXYCODONE IR 5 MG TABLET PO ×4 (08:27→21:06)
[2023-11-12] MEDS: INSULIN GLARGINE 100 UNIT/ML 3ML PEN 15 UNIT SUBCUT (09:15)
[2023-11-12] MEDS: DEXAMETHASONE 10 MG/ML VIAL IV (09:19)
[2023-11-12] MEDS: METOPROLOL IR 50 MG TABLET 100 MG PO ×2 (11:54→21:07)
[2023-11-12] MEDS: lisinopriL 20 MG TABLET PO (11:54)
[2023-11-12] MEDS: FENOFIBRATE, MICRONIZED 67 MG CAPSULE 201 MG PO (11:54)
[2023-11-12] MEDS: VANCOMYCIN 1,250 MG/250 ML PIGGYBACK 250 MG IV ×2 (13:39→21:03)
--- NOTE | 2023-11-12 15:41 | P.PN_ITS ---
Subjective Subjective Interval history: Patient notes pain and swelling having improved some, but she is still requiring dilaudid IV. Able to eat today. Spoke with Dr. Bray who added decadron 8mg q8h and recommended continued IV abx. Exam Vital Signs (past 8 hours): - 11/12/23 07:49 11/12/23 07:50 11/12/23 07:59 Temperature Pulse Rate 85 87 Respiratory Rate 16 Blood Pressure Pulse Oximetry 94 99 Oxygen Delivery Method Room Air Room Air 11/12/23 09:28 11/12/23 09:28 11/12/23 09:30 Temperature Pulse Rate 95 H 99 H Respiratory Rate Blood Pressure 118/66 Pulse Oximetry 99 99 Oxygen Delivery Method 11/12/23 11:52 11/12/23 11:52 11/12/23 11:52 Temperature Pulse Rate 85 83 Respiratory Rate 16 18 Blood Pressure 123/73 123/73 Pulse Oximetry 98 98 Oxygen Delivery Method Room Air 11/12/23 11:54 11/12/23 12:00 11/12/23 12:00 Temperature Pulse Rate 84 85 Respiratory Rate Blood Pressure 123/73 130/77 Pulse Oximetry 96 Oxygen Delivery Method 11/12/23 13:43 11/12/23 13:44 11/12/23 13:44 Temperature Pulse Rate 87 83 Respiratory Rate Blood Pressure 139/69 Pulse Oximetry 98 98 Oxygen Delivery Method 11/12/23 15:07 Temperature 96.2 F L Pulse Rate 85 Respiratory Rate 18 Blood Pressure 135/77 Pulse Oximetry 98 Oxygen Delivery Method Oxygen Delivery Method Room Air Narrative Exam Narrative: GEN: NAD HEENT: moist mucous membranes, PERRL NECK: extensive swelling and erythema of R submandibular region extending down neck to chest. No purulence. Swelling less prominent in neck now. CV: regular rate and rhythm, no murmurs PULM: clear bilaterally ABD: soft, nontender, nondistended, no organomegaly EXT: warm and well perfused with no edema NEURO: awake, alert, oriented, no focal deficits Objective Labs 11/12/23 05:05 11/12/23 05:05 Labs: Laboratory Results - last 24 hr 11/11/23 11/12/23 14:28 05:05 WBC 21.2 H RBC 3.86 L Hgb 11.9 L Hct 35.5 L MCV 91.9 MCH 30.9 MCHC 33.7 RDW 12.6 Plt Count 265 Neut % (Auto) 94.1 H Lymph % (Auto) 2.4 L [place] % (Auto) 3.2 Eos % (Auto) 0.2 L Baso % (Auto) 0.1 Neut # (Auto) 16730 H Lymph # (Auto) 500 L [place] # (Auto) 700 Eos # (Auto) 0 Baso # (Auto) 0 Sodium 137 Potassium 3.8 Chloride 104 Carbon Dioxide 22 BUN 9 Creatinine 0.52 Estimated GFR > 60 BUN/Creatinine Ratio 17.3 Glucose 210 H Calcium 8.8 Magnesium 1.3 L 2.6 H Procalcitonin 0.28 PFSH Medical History (Updated 11/11/23 @ 18:47 by Chaya Whitehead DO) Situational anxiety Type 2 diabetes mellitus without complication, with long-term current use of insulin Tubular adenoma Vitamin B 12 deficiency Hyperlipidemia 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 Carpal tunnel syndrome on both sides Ectopic HTN (hypertension) (2017) Surgical History History of bowel resection (~2018) History of hernia repair S/P Status post colostomy S/P colostomy takedown History of salpingectomy Family History Father Diabetes mellitus Heart disease Hypertension High cholesterol Mother Hypertension Mental health problem Perforated duodenal ulcer Diverticulitis Grandmother Heart attack Grandfather Heart attack Grandmother Heart attack Social History marital status: number of children: 2 household members: family lives independently: Yes Smoking Status: Former smoker alcohol intake: current substance use type: does not use Assessment & Plan Assessment & Plan narrative: # cellulitis of neck secondary to sialadenitis -CT with soft tissue swelling of R submandibular region and neck, no stones or abscess -ENT consulted by ED, recommended antibiotics and decadron -continue vanc and Zosyn -continue dex 8mg IV q8h -dilaudid and oxy PRN for pain -blood cultures NG at 24 hours -patient requested 1 dose of diflucan for prophylaxis against yeast infection as she is prone to them, 200mg one time ordered # DM2 -start lantus 15u daily due to steroid use -hold ozempic -med dose SSI -continued metformin at patient's request # HTN -continue lisinopril and metop # HLD -continue fenofibrate and lipitor # anxiety -continue ativan PRN at bedtime # constipation -daily miralax and dulcolax PRN Code status is full code. DVT prophylaxis with Lovenox. Proxy is Shailesh. I have reviewed home meds and used all available resources to reconcile the home meds. Dispo: Home in 1-2 days pending improvement in pain and swelling of neck.
[2023-11-12] MEDS: METFORMIN HCL 500 MG TABLET 1000 MG PO ×2 (16:00→21:07)
[2023-11-12] MEDS: FLUCONAZOLE 100 MG TABLET 200 MG PO (16:00)
[2023-11-12] MEDS: DEXAMETHASONE 10 MG/ML VIAL 8 MG IV (17:20)
[2023-11-12] MEDS: ACETAMINOPHEN 325 MG TABLET 650 MG PO (21:06)
[2023-11-12] MEDS: ATORVASTATIN 20 MG TABLET 40 MG PO (21:07)
[2023-11-13] VITALS (7 sets, daily range): BP systolic 158–179; BP diastolic 85–92; PULSE 61–77; RESP 17–19; TEMP 36.1–36.3; O2SAT 96–99
[2023-11-13] MEDS: DEXAMETHASONE 10 MG/ML VIAL 8 MG IV ×3 (01:19→22:32)
[2023-11-13] MEDS: HYDROMORPHONE 0.5 MG INJ IV ×5 (02:56→19:51)
[2023-11-13] MEDS: SODIUM CHLORIDE 0.9% 1,000 ML 125 ML IV (02:59)
[2023-11-13] MEDS: VANCOMYCIN TROUGH 1 REQUEST MISC (04:41)
[2023-11-13] MEDS: VANCOMYCIN 1,250 MG/250 ML PIGGYBACK 250 MG IV ×3 (04:42→22:43)
[2023-11-13 04:47] LABS: Add Manual Diff / Slide Review NO; Basophils Absolute Auto 0 /uL (0-100); Basophils Percent Auto 0.2 % (0-2); Eosinophils Absolute Auto 0 /uL (0-450); Eosinophils Percent Auto 0.1 % (2-4); Hematocrit 32.3 % (36-46); Hemoglobin 10.5 g/dL (12.0-16.0); Lymphocytes Absolute Auto 800 /uL (1100-4500); Lymphocytes Percent Auto 4.4 % (25-40); Mean Corpuscular HGB Conc 32.5 % (30-36); Mean Corpuscular Hemoglobin 30.1 PG (26-34); Mean Corpuscular Volume 92.7 fL (80-100); Monocytes Absolute Auto 400 /uL (0-900); Neutrophils Absolute Auto 17000 /uL (1500-7000); Neutrophils Percent Auto 93.3 % (50-75); Platelet Count 283 X10^3/uL (150-400); Red Blood Cell Count 3.49 X10^6/uL (4.0-5.2); Red Cell Distribution Width 12.6 % (11.6-14.8); White Blood Cell Count 18.2 X10^3/uL (4.5-11.0)
[2023-11-13 04:56] LABS: BUN Creatinine Ratio 15.4 (6-22); Blood Urea Nitrogen 8 mg/dL (7-17); Calcium 8.8 mg/dL (8.4-10.2); Carbon Dioxide 21 mmol/L (22-32); Chloride 103 mmol/L (98-107); Estimated Glomerular Filt Rate > 60 mL/min (>60); Glucose 244 mg/dL (70-100); HEMOLYSIS < 15 (0-50); Potassium 4.4 mmol/L (3.4-5.1); Sodium 135 mmol/L (137-145)
[2023-11-13 05:03] LABS: Magnesium 1.8 mg/dL (1.6-2.3)
[2023-11-13 05:06] LABS: Vancomycin Trough 10.7 ug/mL (10-20)
[2023-11-13 05:14] LABS: Procalcitonin 0.14 ng/mL (<0.5)
[2023-11-13] MEDS: PIPERACILLIN/TAZO 3.375 GM in SODIUM CHLORIDE 0.9% 100 ML IV ×3 (06:48→22:43)
[2023-11-13] MEDS: OXYCODONE IR 5 MG TABLET PO ×4 (08:04→17:44)
[2023-11-13] MEDS: METOPROLOL IR 50 MG TABLET 100 MG PO ×2 (08:05→22:21)
[2023-11-13] MEDS: lisinopriL 20 MG TABLET PO (08:05)
[2023-11-13] MEDS: METFORMIN HCL 500 MG TABLET 1000 MG PO ×2 (08:06→22:23)
[2023-11-13] MEDS: FENOFIBRATE, MICRONIZED 67 MG CAPSULE 201 MG PO (08:06)
[2023-11-13] MEDS: ACETAMINOPHEN 325 MG TABLET 650 MG PO ×2 (08:06→17:45)
[2023-11-13] MEDS: INSULIN LISPRO 100 UNIT/ML 3ML VIAL SUBCUT ×4 (08:10→20:15)
[2023-11-13] MEDS: INSULIN GLARGINE 100 UNIT/ML 3ML PEN 15 UNIT SUBCUT (08:13)
[2023-11-13] MEDS: ENOXAPARIN 40 MG/0.4 ML SYRINGE SUBCUT (09:32)
[2023-11-13] MEDS: ONDANSETRON 4 MG/2 ML INJ IV ×2 (10:59→22:32)
--- NOTE | 2023-11-13 11:04 | PM.PN.1 ---
Subjective Subjective Interval history: 47 F admitted with a sialoadenitis. Continues to have significant pain, difficulty with swallow though this is improving slightly. Exam Vital Signs (past 8 hours): - 11/13/23 04:00 11/13/23 08:00 11/13/23 08:05 Temperature 97.1 F L Pulse Rate 71 71 71 Respiratory Rate 19 Blood Pressure 163/88 H 163/88 H Pulse Oximetry 99 Oxygen Delivery Method Room Air Narrative Exam Narrative: GEN: NAD HEENT: moist mucous membranes, PERRL NECK: extensive swelling and erythema of R submandibular region extending down neck to chest. No purulence. CV: regular rate and rhythm, no murmurs PULM: clear bilaterally ABD: soft, nontender, nondistended, no organomegaly EXT: warm and well perfused with no edema NEURO: awake, alert, oriented, no focal deficits Objective Labs 11/13/23 04:36 11/13/23 04:36 Labs: Laboratory Results - last 24 hr 11/13/23 04:36 WBC 18.2 H RBC 3.49 L Hgb 10.5 L Hct 32.3 L MCV 92.7 MCH 30.1 MCHC 32.5 RDW 12.6 Plt Count 283 Neut % (Auto) 93.3 H Lymph % (Auto) 4.4 L [place] % (Auto) 2.0 L Eos % (Auto) 0.1 L Baso % (Auto) 0.2 Neut # (Auto) 38445 H Lymph # (Auto) 800 L [place] # (Auto) 400 Eos # (Auto) 0 Baso # (Auto) 0 Sodium 135 L Potassium 4.4 Chloride 103 Carbon Dioxide 21 L BUN 8 Creatinine 0.52 Estimated GFR > 60 BUN/Creatinine Ratio 15.4 Glucose 244 H Calcium 8.8 Magnesium 1.8 Procalcitonin 0.14 Vancomycin Trough 10.7 PFSH Medical History (Updated 11/11/23 @ 18:47 by Chaya Whitehead DO) Situational anxiety Type 2 diabetes mellitus without complication, with long-term current use of insulin Tubular adenoma Vitamin B 12 deficiency Hyperlipidemia 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 Carpal tunnel syndrome on both sides Ectopic HTN (hypertension) (2017) Surgical History History of bowel resection (~2017) History of hernia repair S/P Status post colostomy S/P colostomy takedown History of salpingectomy Family History Father Diabetes mellitus Heart disease Hypertension High cholesterol Mother Hypertension Mental health problem Perforated duodenal ulcer Diverticulitis Grandmother Heart attack Grandfather Heart attack Grandmother Heart attack Social History marital status: number of children: 2 household members: family lives independently: Yes Smoking Status: Former smoker alcohol intake: current substance use type: does not use Assessment & Plan Assessment & Plan narrative: # cellulitis of neck secondary to sialadenitis -CT with soft tissue swelling of R submandibular region and neck, no stones or abscess -ENT consulted by ED, recommended antibiotics and decadron -continue vanc and Zosyn -continue dex 8mg IV but decrease from q8 to BID. -dilaudid and oxy PRN for pain -blood cultures without growth. -patient requested 1 dose of diflucan for prophylaxis against yeast infection as she is prone to them, 200mg one time ordered # DM2 -started lantus 15u daily due to steroid use, hopefully sugars improve with reduction in steroid dosing today. -hold ozempic -med dose SSI -continued metformin at patient's request # HTN -continue lisinopril and metop # HLD -continue fenofibrate and lipitor # anxiety -continue ativan PRN at bedtime # constipation -daily miralax and dulcolax PRN Code status is full code. DVT prophylaxis with Lovenox. Proxy is Shaielsh. I have reviewed home meds and used all available resources to reconcile the home meds. Dispo: Home in 1-2 days pending improvement in pain and swelling of neck.
--- NOTE | 2023-11-13 15:32 | CM.DANOTE ---
Patient is a 47 yo female who was admitted on 11/11/23 for Cellulitis. Pt has [employer] for insurance and her PCP is Dr. Qamar Clark. EMR was reviewed. Per MD, pt with hx of perforated diverticulitis with chronic colostomy at baseline and DM and admitted for neck cellulitis and IV-Abx and not yet stable for discharge. SW met bedside with pt who was pleasant and A&O x4 and she confirms she lives at home in [place] with her and is active and independent at baseline and has been doing well until she came in for a spider bite of her nose and was found to have stones in her face and cellulitis with intense pain. Pt confirms the swelling has decreased but still quite painful and she does not feel stable for discharge yet today. Pt denies any hx of HH or SNF and manages her colostomy well. Pt does not anticipate any discharge needs at this time and preference is home with spouse and outpt f/u. Plan: SW to follow for continued improvement and plan of d/c home with spouse assist when medically stable and any further identified discharge planning needs. IKER Diaz Discharge Planning/Care Management CM Discharge Assessment Start: 11/13/23 15:30 Freq: Status: Active Protocol: Document 11/13/23 15:30 BF (Rec: 11/13/23 15:31 BF [id number]) Discharge Planning Assessment Assigned Quality Control Head IKER Jordan DPOA/Assigned Designee Name spouse Shailesh Contact Information [phone] Advance Directives? No: Declines further information, has prior paperwork Advance Directives on File No History Provided By Patient,Medical Record Has Patient been admitted in last 30 No days? Prior Living Arrangements House Household Members family Type of transporation used prior to Drives own vehicle admit Independent with ADL's Yes Is patient alert and oriented? Yes Caregiver for Another No Comment Likely none needed Barriers to Discharge No Discharge Plan Home Transportation Arrangement Family Referrals Initiated None needed Whiteboard Updated in Patient Room with Yes name and ext. # of Quality Control Head Review Status In Process Please Provide Date Initial DC 11/13/23 Assessment Was Performed Next Review Type Continued Stay Review
[2023-11-13] MEDS: CALCIUM CARBONATE 500 MG TAB 1000 MG PO ×2 (16:02→19:51)
[2023-11-13] MEDS: ATORVASTATIN 20 MG TABLET 40 MG PO (22:21)
[2023-11-13] MEDS: OXYCODONE IR 10 MG TABLET PO (22:22)
[2023-11-13] MEDS: KETOROLAC 30 MG/ML VIAL IV (22:32)
[2023-11-14] VITALS: BP 183/96; PULSE 107; RESP 18; TEMP 35.7; O2SAT 96
[2023-11-14] MEDS: LORazepam 1 MG TABLET PO (00:28)
[2023-11-14 04:00] VITALS: BP 189/89; PULSE 63; RESP 18; TEMP 35.9; O2SAT 97
[2023-11-14] MEDS: OXYCODONE IR 10 MG TABLET PO ×2 (04:17→08:38)
[2023-11-14] MEDS: VANCOMYCIN 1,250 MG/250 ML PIGGYBACK 250 MG IV (04:18)
[2023-11-14 04:20] LABS: Add Manual Diff / Slide Review NO; Basophils Absolute Auto 0 /uL (0-100); Eosinophils Absolute Auto 0 /uL (0-450); Hematocrit 33.9 % (36-46); Hemoglobin 11.4 g/dL (12.0-16.0); Lymphocytes Absolute Auto 1100 /uL (1100-4500); Lymphocytes Percent Auto 7.2 % (25-40); Mean Corpuscular HGB Conc 33.5 % (30-36); Mean Corpuscular Hemoglobin 31.3 PG (26-34); Mean Corpuscular Volume 93.5 fL (80-100); Monocytes Absolute Auto 300 /uL (0-900); Monocytes Percent Auto 2.2 % (3-14); Neutrophils Absolute Auto 14100 /uL (1500-7000); Neutrophils Percent Auto 90.6 % (50-75); Platelet Count 329 X10^3/uL (150-400); Red Blood Cell Count 3.63 X10^6/uL (4.0-5.2); Red Cell Distribution Width 12.5 % (11.6-14.8); White Blood Cell Count 15.6 X10^3/uL (4.5-11.0)
[2023-11-14] MEDS: ONDANSETRON 4 MG/2 ML INJ IV ×2 (04:21→11:16)
[2023-11-14 04:50] LABS: HEMOLYSIS < 15 (0-50)
[2023-11-14 04:51] LABS: Procalcitonin 0.12 ng/mL (<0.5)
[2023-11-14 04:59] LABS: BUN Creatinine Ratio 19.2 (6-22); Blood Urea Nitrogen 14 mg/dL (7-17); Calcium 9.6 mg/dL (8.4-10.2); Carbon Dioxide 22 mmol/L (22-32); Chloride 104 mmol/L (98-107); Estimated Glomerular Filt Rate > 60 mL/min (>60); Glucose 230 mg/dL (70-100); Magnesium 1.7 mg/dL (1.6-2.3); Potassium 4.4 mmol/L (3.4-5.1); Sodium 135 mmol/L (137-145)
[2023-11-14] MEDS: HYDROMORPHONE 0.5 MG INJ IV (05:32)
[2023-11-14 08:00] VITALS: BP 185/90; PULSE 55; RESP 16; TEMP 35.9; O2SAT 96
[2023-11-14] MEDS: PIPERACILLIN/TAZO 3.375 GM in SODIUM CHLORIDE 0.9% 100 ML IV (08:02)
[2023-11-14] MEDS: INSULIN GLARGINE 100 UNIT/ML 3ML PEN 15 UNIT SUBCUT (08:19)
[2023-11-14] MEDS: DEXAMETHASONE 10 MG/ML VIAL 8 MG IV (08:23)
[2023-11-14] MEDS: FENOFIBRATE, MICRONIZED 67 MG CAPSULE 201 MG PO (08:23)
[2023-11-14] MEDS: INSULIN LISPRO 100 UNIT/ML 3ML VIAL SUBCUT (08:23)
[2023-11-14] MEDS: ENOXAPARIN 40 MG/0.4 ML SYRINGE SUBCUT (08:23)
[2023-11-14 08:24] VITALS: BP 189/89; PULSE 63
[2023-11-14] MEDS: lisinopriL 20 MG TABLET PO (08:24)
[2023-11-14] MEDS: METOPROLOL IR 50 MG TABLET 100 MG PO (08:24)
[2023-11-14] MEDS: METFORMIN HCL 500 MG TABLET 1000 MG PO (08:25)
[2023-11-14] MEDS: ACETAMINOPHEN 325 MG TABLET 650 MG PO (08:39)
--- NOTE | 2023-11-14 09:22 | PM.DS.1 ---
History of Present Illness History of Present Illness Date Patient Seen: 11/14/23 Time Patient Seen: 09:23 Chief complaint: throat swelling and pain Narrative: Per admitting provider, Aicha Davey is a 47yo F with PMH of DM2, anxiety, HTN, perforated diverticulitis s/p resection, and HLD who presents with swelling of neck and found to have cellulitis and sialoadenitis of R submandibular gland. Patient states her mouth has been extra dry the past 2 days. She then developed severe pain and swelling in her right jaw and neck with erythema extending down her neck. The pain continues to worsen and was so severe she cried. In the ED found to have cellulitis of R neck with lymphadenopathy of submandibular region. No abscess or stone identified. She was given IV abx and 10mg IV dexamethasone. Patient states her pain isn't much better, and only dilaudid has been working but she needs it every 3 hours as 4 is too long. She denies difficulty breathing, speaking, NV, CP, abd pain or diarrhea. Has pain with swallowing. Discharge Providers Provider Date of admission: 11/11/23 17:18 Discharge Date: 11/14/23 Primary care physician: Qamar Clark DO Discharge provider: Mao Pike DO Summary Hospital Course Discharge Diagnosis: # cellulitis of neck secondary to sialadenitis # DM2 # HTN # HLD # anxiety # constipation Hospital Course: This is a 47 year old female with PMH of HTN, HLD, DM2 admitted with a neck cellulitis due to sialadenitis. No stones or abscess was noted not CT imaging. ENT recommended antibiotics and steroids. She initially had pain and difficulty with swallowing due to neck swelling and edema. She was started on decadron and zosyn / vanco with slow improvement. After a couple of days her swelling had markedly improved and she was able to keep down oral pills and enough nutrition to discharge home. She was discharged on augmentin and a dexamethasone taper to complete at home. No other medication changes are recommended at discharge. Time Spent with Patient Time spent: Greater than 30 minutes Exam Vital Signs (past 8 hours): - 11/14/23 04:00 11/14/23 08:00 11/14/23 08:24 Temperature 96.7 F L 96.7 F L Pulse Rate 63 55 L 63 Respiratory Rate 18 16 Blood Pressure 189/89 H 185/90 H 189/89 H Pulse Oximetry 97 96 Oxygen Flow Rate 0 0 Oxygen Delivery Method Room Air Oxygen Flow Rate 0 Narrative Exam Narrative: GEN: NAD HEENT: moist mucous membranes, PERRL NECK: extensive swelling and erythema of R submandibular region extending down neck to chest. No purulence. CV: regular rate and rhythm, no murmurs PULM: clear bilaterally ABD: soft, nontender, nondistended, no organomegaly EXT: warm and well perfused with no edema NEURO: awake, alert, oriented, no focal deficits Objective Labs 11/14/23 03:58 11/14/23 03:58 Labs: Laboratory Results - last 24 hr 11/14/23 03:58 WBC 15.6 H RBC 3.63 L Hgb 11.4 L Hct 33.9 L MCV 93.5 MCH 31.3 MCHC 33.5 RDW 12.5 Plt Count 329 Neut % (Auto) 90.6 H Lymph % (Auto) 7.2 L [place] % (Auto) 2.2 L Eos % (Auto) 0.0 L Baso % (Auto) 0.0 Neut # (Auto) 62416 H Lymph # (Auto) 1100 [place] # (Auto) 300 Eos # (Auto) 0 Baso # (Auto) 0 Sodium 135 L Potassium 4.4 Chloride 104 Carbon Dioxide 22 BUN 14 Creatinine 0.73 Estimated GFR > 60 BUN/Creatinine Ratio 19.2 Glucose 230 H Calcium 9.6 Magnesium 1.7 Procalcitonin 0.12 [facility] History (Updated 11/11/23 @ 18:47 by Chaya Whitehead DO) Situational anxiety Type 2 diabetes mellitus without complication, with long-term current use of insulin Tubular adenoma Vitamin B 12 deficiency Hyperlipidemia 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 Carpal tunnel syndrome on both sides Ectopic HTN (hypertension) (2017) Surgical History History of bowel resection (~2018) History of hernia repair S/P Status post colostomy S/P colostomy takedown History of salpingectomy Family History Father Diabetes mellitus Heart disease Hypertension High cholesterol Mother Hypertension Mental health problem Perforated duodenal ulcer Diverticulitis Grandmother Heart attack Grandfather Heart attack Grandmother Heart attack Social History marital status: number of children: 2 household members: family lives independently: Yes Smoking Status: Former smoker alcohol intake: current substance use type: does not use Discharge Plan Discharge Plan Patient Disposition: Home Provider Discharge Comment: You were admitted to the hospital with swelling and pain around your submandibular gland and neck with a surrounding cellulitis. This improved with steroids and antibiotics. Continue these at home. Toradol and nausea medications were also sent to help with symptoms. Discharge orders & Medications Prescriptions: New ketorolac 10 mg tablet 10 mg PO Q8H PRN (Reason: pain) 5 Days Qty: 15 0RF amoxicillin-pot clavulanate 875-125 mg tablet 1 tab PO BID 7 Days Qty: 14 0RF dexamethasone 2 mg tablet See Rx Instructions .ROUTE .COMPLEX Qty: 10 0RF Rx Instructions: Take 8 mg daily for 1 day, 4 mg daily for 2 days, 2 mg daily for 2 days, then stop. oxycodone 5 mg tablet 5 mg PO Q6H PRN (Reason: pain) 7 Days Qty: 20 0RF Continued (DME) lancets Misc See Rx Instructions .ROUTE .MEDSUPPLY Qty: 100 3RF Rx Instructions: Use to test blood sugar daily as directed (DME) blood-glucose meter Misc See Rx Instructions .ROUTE .MEDSUPPLY Qty: 1 1RF Rx Instructions: Use to test blood suagr daily as directed (DME) insulin syringe-needle U-100 [BD Insulin Syringe] 1 mL 28 gauge x 1/2 syringe See Rx Instructions .Route Qty: 100 12RF Rx Instructions: use to inject insulin daily progesterone micronized 100 mg capsule 100 mg PO BEDTIME 21 Days Qty: 21 5RF Rx Instructions: off 7 days when menses start; repeat cycle 21 days of 28 days atorvastatin [Lipitor] 40 mg tablet 40 mg PO BEDTIME Qty: 90 3RF (DME) Blood Glucose Test Strip See Rx Instructions .ROUTE .MEDSUPPLY Qty: 100 3RF Rx Instructions: Use to test blood sugar 3-4 times a day lorazepam 1 mg tablet 1 mg PO BEDTIME PRN (Reason: Anxiety) Qty: 30 0RF Ozempic 1 mg/dose (4 mg/3 mL) pen injector 1 mg SUBCUT QWEEK insulin glargine [Lantus U-100 Insulin] 100 unit/mL solution 8 unit SUBCUT QPM Rx Instructions: pt states she takes 8 units qpm metoprolol tartrate 100 mg tablet 100 mg PO BID Rx Instructions: Take one tablet twice daily lisinopril 20 mg tablet 20 mg PO QAM Rx Instructions: TAKE 1 TABLET BY MOUTH DAILY metformin 1,000 mg tablet 1,000 mg PO BID Rx Instructions: TAKE 1 TABLET (1000 MG) BY MOUTH TWICE DAILY fenofibrate nanocrystallized 145 mg tablet 145 mg PO QAM Rx Instructions: TAKE 1 TABLET BY MOUTH EVERY DAY ondansetron HCl 4 mg tablet 4 mg PO Q6-8H PRN (Reason: nausea and vomiting) Qty: 30 0RF Follow up/Referrals: Qamar Clark DO [Primary Care Provider] - Diet/Activity/Treatments Diet: Diet as Tolerated and Regular Activity: As tolerated, no restrictions Visit Report/Discharge Packet Stand Alone Forms: Patient Portal/API, Stroke Signs & Symptoms Discharge Data Primary Care Provider: Qamar Clark
[2023-11-14] MEDS: CALCIUM CARBONATE 500 MG TAB 1000 MG PO (11:15)
[2023-11-14] MEDS: MAGNESIUM CHLORIDE 64 MG TABLET 128 MG PO (11:15)
--- NOTE | 2023-11-14 12:14 | PC.NURSE ---
Patient is A&OX4, VSS, afebrile on RA. She is cleared for discharge this a.m. after MD evaluation, with home oral antibiotics,steroids and pain medications. She verbalizes understanding of returning to ED if worsening symptoms, she states she feels comfortabel with medications, and plans to follow up with her PCP in two weeks. Pharmacist reviews the medications with patient as well.She is escorted with RN to private vehicle with friend for discharge home this a.m. at 1155 a.m. with all of her belongings.
--- NOTE | 2023-11-14 13:54 | CM.DPC ---
DCP Discharge Home Per MD, pt's swelling and cellulitis seem to be improving and pt medically stable to d/c home with PO abx and outpt f/u and no identified barriers to discharge. Per RN, discharge instructions provided and no concerns noted and pt's friend able to provide transport home today and pt agreeable to d/c and will follow up with her PCP after discharge. Plan: Patient to d/c home today via friend POV and supportive care and outpt follow up and no further SW needs at this time. IKER Daiz
== END 2023-11-14 12:00 | disposition home or self-care (01) | DRG 155 ==
LOC: ED 14:33 → AC 17:19
PROVIDERS: Admitting Provider Student in an Organized Health Care Education/Training Program; Emergency Provider Student in an Organized Health Care Education/Training Program; PCP Family Medicine; Referring Provider Emergency Medicine; Visit Provider Student in an Organized Health Care Education/Training Program
DX: K11.21 Acute sialoadenitis (principal); L03.221 Cellulitis of neck; E11.9 Type 2 diabetes mellitus without complications; I10 Essential (primary) hypertension; E78.5 Hyperlipidemia, unspecified; F41.9 Anxiety disorder, unspecified; K59.00 Constipation, unspecified; Z79.4 Long term (current) use of insulin; Z79.85 Long-term (current) use of injectable non-insulin antidiabetic drugs; Z87.891 Personal history of nicotine dependence; Z79.84 Long term (current) use of oral hypoglycemic drugs
CPT/HCPCS: 36415; 70491; 80048; 80053; 80202; 82962; 83605; 83735; 84145; 85025; 87040; 96365; 96366; 96367; 96368; 96375; 96376; 99284; 99285; J0136; J1100; J1170; J1650; J1815; J1885; J2405; J2543; J3475; Q9967

== ENCOUNTER → 2024-03-19 08:12 | Outpatient (CLI) | payer OTHER, MEDICAID, SELFPAY ==
[2023-11-11 17:29] VITALS: BMI 22.8
[2024-03-19 08:59] LABS: Hemoglobin A1C% w Est Avg Glu 6.1 % (4.0-6.0)
[2024-03-19 09:23] LABS: Cholesterol 235 mg/dL (140-199); HDL Cholesterol 39 mg/dL (40-60)
[2024-03-19 09:33] LABS: Triglycerides 772 mg/dL (35-150)
== END ==
PROVIDERS: PCP Family Medicine; Referring Provider Family Medicine; Visit Provider Family Medicine
DX: E11.9 Type 2 diabetes mellitus without complications (principal); E78.1 Pure hyperglyceridemia; Z79.4 Long term (current) use of insulin
CPT/HCPCS: 36415; 80061; 83036

== ENCOUNTER → 2024-06-13 09:48 | Outpatient (CLI) | payer OTHER, MEDICAID, SELFPAY ==
[2023-11-11 17:29] VITALS: BMI 22.8
[2024-06-13 11:07] LABS: Hemoglobin A1C% w Est Avg Glu 5.9 % (4.0-6.0)
[2024-06-13 11:11] LABS: Cholesterol 133 mg/dL (140-199); HDL Cholesterol 34 mg/dL (40-60); LDL Cholesterol Calculated 31 mg/dL (<100); Triglycerides 339 mg/dL (35-150)
== END ==
PROVIDERS: PCP Family Medicine; Referring Provider Family Medicine; Visit Provider Family Medicine
DX: E78.1 Pure hyperglyceridemia (principal); E11.9 Type 2 diabetes mellitus without complications; Z79.4 Long term (current) use of insulin
CPT/HCPCS: 36415; 80061; 83036

== ENCOUNTER → 2024-07-15 14:12 | Outpatient (CLI) | payer OTHER, MEDICAID, SELFPAY ==
[2023-11-11 17:29] VITALS: BMI 22.8
--- NOTE | 2024-07-15 14:13 | DI.MG.S_ITS ---
BILATERAL DIGITAL SCREENING MAMMOGRAM 3D/2D WITH CAD: 07/15/2024 CLINICAL: Routine screening. Comparison is made to exams dated: 07/13/2023 mammogram, 06/29/2022 mammogram, and 06/28/2021 mammogram - [facility]. There are scattered areas of fibroglandular density (category b / 25%-50% glandular tissue). Current study was also evaluated with a Computer Aided Detection (CAD) system. No significant masses, calcifications, or other findings are seen in either breast. There has been no significant interval change. IMPRESSION: NEGATIVE There is no mammographic evidence of malignancy. A 1 year screening mammogram is recommended. Based on the Tyrer Cuzick model (a risk assessment model) the patient's lifetime risk is 10.0% and her 10 year risk is 2.0%. According to the ACR, ACS, and NCCN guidelines, an annual breast MRI exam along with mammogram is recommended if the patient's lifetime risk is 20% or greater. This exam was interpreted at Station ID: [id number]. NOTE: For mammograms, a report in lay terms will be sent to the patient. Approximately 15% of breast malignancies will not be visualized mammographically. In the management of a palpable breast mass, a negative mammogram must not discourage biopsy of a clinically suspicious lesion. Electronically Signed By: Raghu perez/cade:07/16/2024 06:38:12 letter sent: Normal Exam ACR BI-RADS Category 1: Negative
== END ==
PROVIDERS: PCP Family Medicine; Referring Provider Family Medicine; Visit Provider Family Medicine
DX: Z12.31 Encounter for screening mammogram for malignant neoplasm of breast (principal)
CPT/HCPCS: 77063; 77067

== ENCOUNTER → 2025-01-21 08:57 | Outpatient (CLI) | payer OTHER, SELFPAY ==
[2023-11-11 17:29] VITALS: BMI 22.8
[2025-01-21 09:33] LABS: Hematocrit 39.9 % (36-46); Hemoglobin 13.9 g/dL (12.0-16.0); Mean Corpuscular Hemoglobin 32.9 PG (26-34); Mean Corpuscular Volume 94.1 fL (80-100); Platelet Count 229 X10^3/uL (150-400); Red Blood Cell Count 4.23 X10^6/uL (4.0-5.2); White Blood Cell Count 6.2 X10^3/uL (4.5-11.0)
[2025-01-21 09:49] LABS: Hemoglobin A1C% w Est Avg Glu 6.1 % (4.0-6.0)
[2025-01-21 10:20] LABS: Alanine Aminotransferase 96 IU/L (<35); Albumin 4.4 g/dL (3.5-5.0); Albumin Globulin Ratio 1.9 (1.0-2.8); Alkaline Phosphatase 71 U/L (38-126); Aspartate Aminotransferase 116 IU/L (14-36); Bilirubin Total 0.8 mg/dL (0.2-1.3); Blood Urea Nitrogen 11 mg/dL (7-17); Calcium 9.6 mg/dL (8.4-10.2); Carbon Dioxide 26 mmol/L (22-32); Chloride 100 mmol/L (98-107); Cholesterol 272 mg/dL (140-199); Estimated Glomerular Filt Rate > 60 mL/min (>60); Globulin 2.3 g/dL (1.7-4.1); Glucose 176 mg/dL (70-99); HDL Cholesterol 29 mg/dL (40-60); HEMOLYSIS < 15 (0-50); Potassium 4.2 mmol/L (3.4-5.1); Sodium 136 mmol/L (137-145); Total Protein 6.7 g/dL (6.3-8.2)
[2025-01-21 10:35] LABS: Triglycerides 1456 mg/dL (35-150)
[2025-01-21 11:10] LABS: HIV 1 & 2 Ab/Ag 4th Gen Combo NEGATIVE (NEGATIVE); Hep C Virus Ab w/Reflex Quant NEGATIVE s/c (NEGATIVE)
== END ==
PROVIDERS: PCP Family Medicine; Referring Provider Family Medicine; Visit Provider Family Medicine
DX: Z11.4 Encounter for screening for human immunodeficiency virus [HIV] (principal); Z11.59 Encounter for screening for other viral diseases; E11.9 Type 2 diabetes mellitus without complications; E78.1 Pure hyperglyceridemia; E78.5 Hyperlipidemia, unspecified; I10 Essential (primary) hypertension; Z79.4 Long term (current) use of insulin
CPT/HCPCS: 36415; 80053; 80061; 83036; 85027; 86803; 87389

== ENCOUNTER → 2025-07-21 13:13 | Outpatient (CLI) | payer OTHER, SELFPAY ==
[2023-11-11 17:29] VITALS: BMI 22.8
--- NOTE | 2025-07-21 13:15 | DI.MG.S_ITS ---
MM screening mammo BI: 07/21/2025. BI-RADS: 1 CLINICAL: 49-year old female for bilateral screening mammogram. Tyrer-Cuzick lifetime risk of 7.0%. No personal or first-degree family history of breast cancer. PRIOR EXAMS: 07/15/2024, 07/13/2023, 06/29/2022, 06/28/2021, 06/13/2020. MAMMOGRAPHY TECHNIQUE: 2D and 3D (tomosynthesis) digital mammographic views obtained, with additional images as needed for full coverage. Current study was also evaluated with a Computer Aided Detection (CAD) system. DENSITY B. There are scattered areas of fibroglandular density. MAMMOGRAPHY FINDINGS Bilateral: No suspicious mass, asymmetry, microcalcification, or other abnormality seen. IMPRESSION: * No evidence of malignancy. RECOMMENDATIONS Bilateral * Annual screening mammography. OVERALL ASSESSMENT CATEGORY BI-RADS-1: Negative. The [employer] recommends annual screening mammography beginning at age 40 for women with average risk of breast cancer. ELECTRONICALLY SIGNED: Marcy Rangel M.D. on 07/22/2025 at 04:27:48 PM PT Interpreting Station ID: [id number]
== END ==
LOC: MAMMO 13:14
PROVIDERS: PCP Family Medicine; Referring Provider Family Medicine; Visit Provider Family Medicine
DX: Z12.31 Encounter for screening mammogram for malignant neoplasm of breast (principal)
CPT/HCPCS: 77063; 77067